=== PATIENT | female | born 1935 | race Caucasian/White ===

== ENCOUNTER 2016-08-30 02:17 | Inpatient (IN) | payer MEDICARE, BC ==
[2016-08-30] MEDS ORDERED: Sodium Chloride 0.9% 10 ML Syringe FLUSH PRN (02:40)
[2016-08-30] MEDS ORDERED: Ondansetron 4 MG/2 ML SDV IVPUSH ONE (02:41)
[2016-08-30] MEDS ORDERED: Sodium Chloride 0.9% 1,000 ML IV SCH (02:45)
--- NOTE | 2016-08-30 04:20 | EDM.PDOC ---
ED HISTORY OF PRESENT ILLNESS - General Chief Complaint: Respiratory Problem Stated Complaint: NAUSEA DIZZY SPELLS Time Seen by Provider: 08/30/16 02:36 Source of Information: Reports: Patient History Limitations: Reports: No limitations - History of Present Illness INITIAL COMMENTS - FREE TEXT/NARRATIVE: The patient presents with a cough, dizziness and nausea. This started yesterday after she was here with her . He was admitted with pneumonia and influenza. She does not feel like she has a fever. She is nauseated. She is lightheaded. She says her chest does hurt when she coughs. She has no shortenss of breath. She has no abdominal pain. Timing/Duration: Reports: Day(s): (Yesterday) Severity: moderate Location, General: Reports: chest Quality: Reports: Ache Improves with: Reports: None Worsens with: Reports: Other (Cough) Associated Symptoms (General): Reports: chest pain, cough, cough w sputum, loss of appetite, nausea/vomiting. Denies: fever/chills, shortness of breath - Related Data Allergies/ADRs: Allergies Allergy/AdvReac Type Severity Reaction Status Date / Time acetaminophen Allergy Other Verified 08/30/16 02:31 amoxicillin [Amoxicillin] Allergy Other Verified 08/30/16 02:31 ampicillin Allergy Cannot Verified 08/30/16 02:31 Remember aspirin Allergy Cannot Verified 08/30/16 02:31 Remember clarithromycin [From Biaxin] Allergy Cannot Verified 08/30/16 02:31 Remember clindamycin Allergy Cannot Verified 08/30/16 02:31 Remember glucosamine Allergy Anaphylactic Verified 08/30/16 02:31 Shock hydrocodone Allergy Cannot Verified 08/30/16 02:31 Remember ibuprofen Allergy Other Verified 08/30/16 02:31 olmesartan medoxomil Allergy Other Verified 08/30/16 02:31 [From Benicar] propoxyphene HCl Allergy Cannot Verified 08/30/16 02:31 [From Darvon] Remember sucralfate [From Carafate] Allergy Other Verified 08/30/16 02:31 tramadol Allergy Cannot Verified 08/30/16 02:31 Remember warfarin [Warfarin] Allergy Other Verified 08/30/16 02:31 Penicillins AdvReac Nausea and Verified 08/30/16 02:31 Vomiting Home Meds: Home Meds Acetaminophen [Tylenol] 325 mg PO QID PRN 04/09/14 [History] Fish Oil/[place]-3 Fatty Acids [Fish Oil 1,000 MG] 1,000 gm PO DAILY 04/09/14 [ History] L Acidophil/B Lactis/B Longum [Florajen3] 460 mg PO DAILY 04/09/14 [History] Losartan/Hydrochlorothiazide [Losartan-HCTZ 50-12.5 MG] 50 mg PO DAILY 04/09/14 [History] Omeprazole [Omeprazole] 20 mg PO BID 04/09/14 [History] Rivaroxaban [Xarelto] 20 mg PO DAILY 04/09/14 [History] Sodium Chloride [Rita-128] 1 drop EYEBOTH TID 04/09/14 [History] Tetrahydrozoline HCl 15 ml OP QID PRN 04/09/14 [History] Past Medical History HEENT History: Reports: Cataract Cardiovascular History: Reports: Afib, Angina, CAD, High cholesterol, Hypertension Gastrointestinal History: Reports: GERD Genitourinary History: Reports: Other (see below) Other Genitourinary History: Kidney tumor??? 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, Renal - Infectious Disease History Infectious Disease History: Reports: Chicken pox - Past Surgical History HEENT Surgical History: Reports: Eye surgery GI Surgical History: Reports: Appendectomy, Cholecystectomy, Colonoscopy Oncologic Surgical History: Reports: Biopsy of breast Social & Family History - Tobacco Use Smoking Status *Q: Never Smoker Second Hand Smoke Exposure: No - Caffeine Use Caffeine Use: Reports: None - Alcohol Use Days Per Week of Alcohol Use: 0 - Recreational Drug Use Recreational Drug Use: No ED ROS GENERAL - Review of Systems Review Of Systems: See Below Constitutional: Reports: no symptoms HEENT: Reports: No symptoms Respiratory: Reports: Cough, Sputum Cardiovascular: Reports: Chest pain Endocrine: Reports: no symptoms GI/Abdominal: Reports: No symptoms : Reports: no symptoms Musculoskeletal: Reports: no symptoms Skin: Reports: no symptoms ED EXAM, GENERAL - Physical Exam Exam: See Below Exam Limited By: No limitations General Appearance: alert, no apparent distress Ears: normal external exam Nose: normal inspection Head: atraumatic, normocephalic Neck: normal inspection Respiratory/Chest: no respiratory distress, lungs clear, normal breath sounds Cardiovascular: regular rate, rhythm, no edema, no murmur GI/Abdominal: soft, non tender, no organomegaly, no mass Back Exam: normal inspection Extremities: normal inspection EKG INTERPRETATION EKG Date: 08/30/16 Time: 02:25 Rhythm: a-fib Rate (beats/min): 79 [place]: normal QRS: normal ST-T: normal QT: normal Course - Vital Signs Last Recorded V/S: Last Vital Signs Temp 97.1 F 08/30/16 02:23 Pulse 84 08/30/16 02:23 Resp 18 08/30/16 02:23 BP 109/72 08/30/16 02:23 Pulse Ox 91 L 08/30/16 02:23 - Orders/Labs/Meds Orders: Active Orders 24 hr Category Date Time Status Cardiac Monitoring [RC] . DIRECTED Care 08/30/16 02:40 Active EKG 12 Lead [EKG Documentation Completion] [RC] STAT Care 08/30/16 02:29 Active Oxygen Therapy [RC] PRN Care 08/30/16 02:40 Active Peripheral IV Care [RC] . DIRECTED Care 08/30/16 02:41 Active Chest 2V [CR] Stat Exams 08/30/16 02:41 Taken UA W/MICROSCOPIC [URIN] Stat Lab 08/30/16 04:20 Results Sodium Chloride 0.9% [Normal Saline] 1,000 ml Med 08/30/16 02:45 Active IV ASDIRECTED Sodium Chloride 0.9% [Saline Flush] Med 08/30/16 02:40 Active 10 ml FLUSH ASDIRECTED PRN Peripheral IV Insertion Adult [OM.PC] Stat Oth 08/30/16 02:40 Ordered Medication Orders Sodium Chloride (Normal Saline) 1,000 mls @ 125 mls/hr IV ASDIRECTED LISA Last Admin: 08/30/16 02:46 Dose: 125 mls/hr Sodium Chloride (Saline Flush) 10 ml FLUSH ASDIRECTED PRN PRN Reason: Keep Vein Open Last Admin: 08/30/16 02:46 Dose: 10 ml Labs: Laboratory Tests 08/30/16 08/30/16 08/30/16 Range/Units 02:32 02:32 04:20 WBC 7.77 (3.98-10.04) K/mm3 RBC 4.43 (3.98-5.22) M/mm3 Hgb 13.6 (11.2-15.7) gm/L Hct 37.8 (34.1-44.9) % MCV 85.3 (79.4-94.8) fl MCH 30.7 (25.6-32.2) pg MCHC 36.0 H (32.2-35.5) g/dl RDW Std Deviation 37.9 (36.4-46.3) fL Plt Count 107 L (182-369) K/mm3 MPV 10.2 (9.4-12.3) fl Neut % (Auto) 85.6 H (34.0-71.1) % Lymph % (Auto) 8.9 L (19.3-51.7) % [place] % (Auto) 5.4 (4.7-12.5) % Eos % (Auto) 0 L (0.7-5.8) Baso % (Auto) 0.1 (0.1-1.2) % Neut # 6.65 H (1.56-6.13) K/mm3 Lymph # 0.69 L (1.18-3.74) K/mm3 [place] # 0.42 H (0.24-0.36) K/mm3 Eos # 0.00 L (0.04-0.36) K/mm3 Baso # 0.01 (0.01-0.08) K/mm3 Manual Slide Review Abnormal smear Sodium 128 L (136-145) mEq/L Potassium 3.2 L (3.5-5.1) mEq/L Chloride 92 L (98-107) mEq/L Carbon Dioxide 26 (21-32) mEq/L Anion Gap 13.2 (5-15) BUN 11 (7-18) mg/dL Creatinine 1.0 (0.55-1.02) mg/dL Est Cr Clr Drug Dosing 41.30 mL/min Estimated GFR (MDRD) 53 (>60) mL/min BUN/Creatinine Ratio 11.0 L (14-18) Glucose 131 H (83-115) mg/dL Calcium 9.0 (8.5-10.1) mg/dL Total Bilirubin 0.8 (0.2-1.0) mg/dL AST 52 H (15-37) U/L ALT 33 (14-59) U/L Alkaline Phosphatase 117 H (46-116) U/L Troponin I < 0.017 (0.00-0.056) ng/mL Total Protein 7.2 (6.4-8.2) g/dl Albumin 3.5 (3.4-5.0) g/dl Globulin 3.7 gm/dL Albumin/Globulin Ratio 1.0 (1-2) Urine Color Yellow (Yellow) Urine Appearance Clear (Clear) Urine pH 7.0 (5.0-8.0) Ur Specific [place] 1.015 (1.005-1.030) Urine Protein Negative (Negative) Urine Glucose (UA) Negative (Negative) Urine Ketones Negative (Negative) Urine Occult Blood Trace-lysed H (Negative) Urine Nitrite Negative (Negative) Urine Bilirubin Negative (Negative) Urine Urobilinogen 0.2 (0.2-1.0) Ur Leukocyte Esterase Negative (Negative) Meds: Medications Generic Name Dose Route Start Last Admin Trade Name Freq PRN Reason Stop Dose Admin Sodium Chloride 1,000 mls @ 125 mls/hr 08/30/16 02:45 08/30/16 02:46 Normal Saline IV 125 mls/hr ASDIRECTED LISA Administration Sodium Chloride 10 ml 08/30/16 02:40 08/30/16 02:46 Saline Flush FLUSH 10 ml ASDIRECTED PRN Administration Keep Vein Open Discontinued Medications Generic Name Dose Route Start Last Admin Trade Name Freq PRN Reason Stop Dose Admin Ondansetron HCl 4 mg 08/30/16 02:41 08/30/16 02:46 Zofran IVPUSH 08/30/16 02:42 4 mg ONETIME ONE Administration - Re-Assessments/Exams Free Text/Narrative Re-Assessment/Exam: 08/30/16 04:21 I ordered an IV NS at 125ml/hr, zofran 4mg IV, EKG, CXR, labs and a UA. Her EKG shows a NSR with no acute changes. Her CXR shows no infiltrated. Her influenza was negative. Her CBC looks good. Her Na is low at 128 and her potassium is low at 3.1. Her troponin is negative. I am waiting for a UA. 08/30/16 04:42 Her UA shows no UTI. I am concerned she has an early pneumonia and influenza that we are not picking up. I feel she needs to be admitted. Her oxygen saturations dropped here in the ER and she needed some oxygen. I will give her some tamiflu and some levaquin. I will change her fluids to NS with 20meq of KCL. Departure - Departure Time of Disposition: 04:45 Disposition: Admitted As Inpatient 65 Condition: good Clinical Impression: Influenza A, Hypokalemia, Hyponatremia, Nausea Pneumonia Qualifiers: Pneumonia type: due to unspecified organism Laterality: unspecified laterality Lung location: unspecified part of lung Qualified Code(s): J18.9 - Pneumonia, unspecified organism Forms: ED Department Discharge - My Orders Last 24 Hours: My Active Orders 08/30/16 02:29 EKG 12 Lead [EKG Documentation Completion] [RC] STAT 08/30/16 02:40 Cardiac Monitoring [RC] . DIRECTED Oxygen Therapy [RC] PRN Sodium Chloride 0.9% [Saline Flush] 10 ml FLUSH ASDIRECTED PRN Peripheral IV Insertion Adult [OM.PC] Stat 08/30/16 02:41 Peripheral IV Care [RC] . DIRECTED Chest 2V [CR] Stat 08/30/16 02:45 Sodium Chloride 0.9% [Normal Saline] 1,000 ml IV ASDIRECTED 08/30/16 04:20 UA W/MICROSCOPIC [URIN] Stat - Assessment/Plan Last 24 Hours: My Active Orders 08/30/16 02:29 EKG 12 Lead [EKG Documentation Completion] [RC] STAT 08/30/16 02:40 Cardiac Monitoring [RC] . DIRECTED Oxygen Therapy [RC] PRN Sodium Chloride 0.9% [Saline Flush] 10 ml FLUSH ASDIRECTED PRN Peripheral IV Insertion Adult [OM.PC] Stat 08/30/16 02:41 Peripheral IV Care [RC] . DIRECTED Chest 2V [CR] Stat 08/30/16 02:45 Sodium Chloride 0.9% [Normal Saline] 1,000 ml IV ASDIRECTED 08/30/16 04:20 UA W/MICROSCOPIC [URIN] Stat
[2016-08-30] MEDS ORDERED: Levofloxacin/Dextrose 5%-Water 750 MG in Premix Bag 1 BAG IV ONE (04:44)
[2016-08-30] MEDS ORDERED: Oseltamivir 75 MG Cap PO ONE (04:44)
[2016-08-30] MEDS ORDERED: NS + KCl 20mEq/L 1,000 ML IV SCH (04:45)
[2016-08-30] MEDS ORDERED: Ondansetron 4 MG/2 ML SDV IVPUSH PRN (07:12)
[2016-08-30] MEDS ORDERED: Polyethylene Glycol 3350 Powder 17 GM Packet PO PRN (08:22)
[2016-08-30] MEDS ORDERED: Docusate Sodium 100 MG Cap PO PRN (08:22)
[2016-08-30] MEDS ORDERED: Albuterol 0.083% 2.5 MG/3 ML Neb Soln NEB PRN (08:22)
[2016-08-30] MEDS ORDERED: Ondansetron 4 MG Tab.DIS PO PRN (08:22)
[2016-08-30] MEDS ORDERED: Magnesium Hydroxide 400 MG/5 ML Susp 30 ML Cup PO PRN (08:22)
[2016-08-30] MEDS ORDERED: ALPRAZolam 0.25 MG Tab PO PRN (08:29)
[2016-08-30] MEDS ORDERED: Hypromellose 0.5% Ophth Soln 15 ML Bottle EYEBOTH PRN (08:43)
[2016-08-30] MEDS ORDERED: Diphtheria,Pertussis(Acell),Tetanus Vaccine 0.5 ML SDV inactive IM ONE (09:07)
[2016-08-30] MEDS: Losartan 25 MG Tab PO SCH (09:35)
[2016-08-30] MEDS: Rivaroxaban 10 MG Tab PO SCH (09:36)
[2016-08-30] MEDS: Acetaminophen 325 MG Tab PO PRN (09:36)
[2016-08-30] MEDS: Pantoprazole 40 MG Tab.CR PO SCH ×2 (09:37→16:34)
[2016-08-30] MEDS: Saccharomyces Boulardii (Probiotic) 250 MG Cap PO SCH (09:37)
[2016-08-30] MEDS: Hydrochlorothiazide 12.5 MG Cap PO SCH (09:38)
[2016-08-30] MEDS: Sodium Chloride 2% Ophth Soln 15 ML Bottle EYEBOTH SCH ×3 (09:48→20:00)
--- NOTE | 2016-08-30 09:56 | CR ---
Chest: Two views of the chest were obtained. Comparison: No previous chest x-ray. Heart size is normal. Mild tortuosity of the thoracic aorta is seen. No acute appearing infiltrates are seen. Bony structures are osteopenic. Surgical clips are seen within the right axillary region. Impression: 1. Incidental findings. Nothing acute is identified on two-view chest x-ray. Diagnostic code #2
[2016-08-30] MEDS ORDERED: Famotidine 20 MG/2 ML SDV IVPUSH ONE (11:30)
[2016-08-30] MEDS ORDERED: Potassium Chloride 20 MEQ Tab.ER PO ONE (11:30)
[2016-08-30] MEDS ORDERED: Magnesium Sulfate/Water 2 GM in Premix Bag 1 BAG IV ONE (11:30)
--- NOTE | 2016-08-30 12:23 | PCM.HP ---
H&P History of Present Illness - General Date of Service: 08/30/16 Admit Problem/Dx: Admission Diagnosis/Problem Admission Diagnosis/Problem Pneumonia Source of Information: Patient, Other (ED notes) History Limitations: Reports: No limitations - History of Present Illness Initial Comments - Free Text/Narative: Hawa is a pleasant 80yo female admitted through the ED early this morning with clinical pneumonia, influenza exposure, SOB with hypoxia, fever, cough, generalized weakness and nausea. She has PMH significant for a.fib on xarelto, HTN, HLD, GERD, PUD, chronic LBP, anxiety, hx breast cancer, ? hx of renal mass/ tumor. She has had cough x 3-5 days, worse the past 1-2 days. She woke around 11pm with chills, sweats and SOB. She was weak and felt she may faint. She called her daughter for help who came to her home and drove her to the ED for evaluation. Patient's is currently ill with influenza B and pneumonia. 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 She uses a cane for assistance with ambulation. She is not on home oxygen therapy. ED evaluation found patient to be hypoxic, oxygen was applied. CXR is unremarkable. EKG done showing afib with rate of 79bpm. Lab evaluation as follows: WBC 7.7, Hgb 13.6, hct 37.8, Plt 107. CMP with Na+ low at 128, K+ 3.2, BUN 11, Creat 1.0, glucose 131, AST 52, ALT 33, alk phos 117. Troponin was < 0.017. UA with only trace blood. Hospitalist service is consulted for admission for clinical pneumonia, hyponatremia, hypokalemia, generalized weakness. Patient is Full Code. Chest Pain Score (Numeric/FACES): 8 - Related Data Allergies/Adverse Reactions: Allergies Allergy/AdvReac Type Severity Reaction Status Date / Time ampicillin Allergy Cannot Verified 08/30/16 02:31 Remember clarithromycin [From Biaxin] Allergy Cannot Verified 08/30/16 02:31 Remember glucosamine Allergy Anaphylactic Verified 08/30/16 02:31 Shock hydrocodone Allergy Cannot Verified 08/30/16 02:31 Remember propoxyphene HCl Allergy Cannot Verified 08/30/16 02:31 [From Darvon] Remember acetaminophen AdvReac Other Verified 08/30/16 11:33 amoxicillin [Amoxicillin] AdvReac Other Verified 08/30/16 11:33 aspirin AdvReac Cannot Verified 08/30/16 11:33 Remember clindamycin AdvReac Cannot Verified 08/30/16 11:33 Remember ibuprofen AdvReac Other Verified 08/30/16 11:33 olmesartan medoxomil AdvReac Other Verified 08/30/16 11:33 [From Benicar] Penicillins AdvReac Nausea and Verified 08/30/16 02:31 Vomiting sucralfate [From Carafate] AdvReac Other Verified 08/30/16 11:33 tramadol AdvReac Cannot Verified 08/30/16 11:33 Remember warfarin [Warfarin] AdvReac Other Verified 08/30/16 11:33 Home Medications: Home Meds Acetaminophen [Tylenol] 325 mg PO QID PRN 04/09/14 [History] Fish Oil/[place]-3 Fatty Acids [Fish Oil 1,000 MG] 1,000 gm PO DAILY 04/09/14 [ History] L Acidophil/B Lactis/B Longum [Florajen3] 460 mg PO DAILY 04/09/14 [History] Losartan/Hydrochlorothiazide [Losartan-HCTZ 50-12.5 MG] 50 mg PO DAILY 04/09/14 [History] Omeprazole [Omeprazole] 20 mg PO BID 04/09/14 [History] Rivaroxaban [Xarelto] 20 mg PO DAILY 04/09/14 [History] Sodium Chloride [Rita-128] 1 drop EYEBOTH TID 04/09/14 [History] Tetrahydrozoline HCl 15 ml OP QID PRN 04/09/14 [History] ALPRAZolam [Alprazolam] 0.25 mg PO BEDTIME PRN 08/30/16 [History] Past Medical History HEENT History: Reports: Cataract Cardiovascular History: Reports: Afib, Angina, CAD, High cholesterol, Hypertension Gastrointestinal History: Reports: GERD, PUD Genitourinary History: Reports: Other (see below) Other Genitourinary History: Kidney tumor??? CT scan : 2 Para: 2 Other OB/BYN History: Hysterectomy, 2 vaginal births Musculoskeletal History: Reports: Back pain, chronic Psychiatric History: Reports: Anxiety Oncologic (Cancer) History: Reports: Breast, Renal - Infectious Disease History Infectious Disease History: Reports: Chicken pox - Past Surgical History HEENT Surgical History: Reports: Eye surgery Cardiovascular Surgical History: Reports: None GI Surgical History: Reports: Appendectomy, Cholecystectomy, Colonoscopy Female Surgical History: Reports: None Musculoskeletal Surgical History: Reports: None Oncologic Surgical History: Reports: Biopsy of breast Social & Family History - Family History Family Medical History: Noncontributory - Tobacco Use Smoking Status *Q: Never Smoker Second Hand Smoke Exposure: No - Caffeine Use Caffeine Use: Reports: None - Alcohol Use Days Per Week of Alcohol Use: 0 - Recreational Drug Use Recreational Drug Use: No H&P Review of Systems - Review of Systems: Review Of Systems: See Below General: Reports: fever (subjective), chills, malaise, weakness, fatigue, night sweats, diaphoresis, decreased appetite HEENT: Reports: headaches, rhinitis. Denies: sore throat Pulmonary: Reports: Shortness of Breath, Cough. Denies: Sputum Cardiovascular: Reports: lightheadedness. Denies: chest pain, palpitations, dyspnea on exertion Gastrointestinal: Reports: Abdominal pain, Decreased appetite, Nausea. Denies: Constipation, Diarrhea, Vomiting Genitourinary: Reports: no symptoms Musculoskeletal: Reports: no symptoms Skin: Reports: no symptoms Psychiatric: Reports: no symptoms Neurological: Reports: No Symptoms Exam - Exam Exam: See Below - Vital Signs Vital Signs: Last Vital Signs Temp 99.0 F 08/30/16 05:30 Pulse 78 08/30/16 05:30 Resp 24 H 08/30/16 05:30 BP 111/89 08/30/16 09:35 Pulse Ox 91 L 08/30/16 09:38 Weight: 183 lb 11.2 oz - Exam Quality Assessment: supplemental oxygen, DVT prophylaxis General: alert, oriented, cooperative HEENT: Conjunctiva clear, Hearing intact, Mucosa moist & pink, Pupils equal, PERRLA Neck: supple Lungs: Normal respiratory effort, Decreased breath sounds, Rhonchi (rt side >lt) , Wheezing (bases on exp) Cardiovascular: irregular rhythm Abdomen: normal bowel sounds, soft. No: guarding, rigidity, rebound, tenderness (Female) Exam: Deferred Rectal (Female) Exam: Deferred Back Exam: normal inspection Extremities: normal inspection. No: clubbing, cyanosis, calf tenderness, edema Peripheral Pulses: 1+: dorsalis pedis (L), dorsalis pedis (R) Skin: warm, dry, intact Neurological: cranial nerves intact, strength equal bilateral, normal speech, normal tone Neuro Extensive - Mental Status: alert, oriented x3, normal mood/affect, normal cognition, memory intact Neuro Extensive - Motor, Sensory, Reflexes: CN II-XII intact Psychiatric: alert, normal affect, normal mood - Patient Data Lab Results last 24 hrs: Laboratory Results - last 24 hr 08/30/16 08/30/16 Range/Units 09:06 09:06 WBC 9.08 (3.98-10.04) K/mm3 RBC 4.17 (3.98-5.22) M/mm3 Hgb 12.9 (11.2-15.7) gm/L Hct 35.9 (34.1-44.9) % MCV 86.1 (79.4-94.8) fl MCH 30.9 (25.6-32.2) pg MCHC 35.9 H (32.2-35.5) g/dl RDW Std Deviation 38.4 (36.4-46.3) fL Plt Count 92 L (182-369) K/mm3 MPV 9.7 (9.4-12.3) fl Neut % (Auto) 86.5 H (34.0-71.1) % Lymph % (Auto) 7.2 L (19.3-51.7) % [place] % (Auto) 5.9 (4.7-12.5) % Eos % (Auto) 0 L (0.7-5.8) Baso % (Auto) 0.1 (0.1-1.2) % Neut # 7.85 H (1.56-6.13) K/mm3 Lymph # 0.65 L (1.18-3.74) K/mm3 [place] # 0.54 H (0.24-0.36) K/mm3 Eos # 0.00 L (0.04-0.36) K/mm3 Baso # 0.01 (0.01-0.08) K/mm3 Manual Slide Review Abnormal smear Sodium 129 L (136-145) mEq/L Potassium 3.4 L (3.5-5.1) mEq/L Chloride 95 L (98-107) mEq/L Carbon Dioxide 24 (21-32) mEq/L Anion Gap 13.4 (5-15) BUN 10 (7-18) mg/dL Creatinine 0.9 (0.55-1.02) mg/dL Est Cr Clr Drug Dosing 45.89 mL/min Estimated GFR (MDRD) > 60 (>60) mL/min BUN/Creatinine Ratio 11.1 L (14-18) Glucose 118 H (83-115) mg/dL Calcium 8.3 L (8.5-10.1) mg/dL Magnesium 1.3 L (1.8-2.4) mg/dl C-Reactive Protein 6.1 H* (<1.0) mg/dL Result Diagrams: 08/30/16 09:06 08/30/16 09:06 EKG INTERPRETATION EKG Date: 08/30/16 Rhythm: a-fib Rate (beats/min): 79 Comparison: NA - no prior EKG (EKG done in ER) *Q Meaningful Use (ADM) - VTE *Q VTE Criteria *Q: - Stroke *Q Stroke Criteria *Q: - AMI *Q AMI Criteria *Q: - Problem List (1) Pneumonia SNOMED Code(s): 799355734 ICD Code: J18.9 - PNEUMONIA, UNSPECIFIED ORGANISM Status: Acute Priority : High Current Visit: Yes Qualifiers: Pneumonia type: due to unspecified organism Laterality: unspecified laterality Lung location: unspecified part of lung Qualified Code(s): J18.9 - Pneumonia, unspecified organism (2) Hypokalemia SNOMED Code(s): 03731330 ICD Code: E87.6 - HYPOKALEMIA Status: Acute Priority: High Current Visit: Yes (3) Hyponatremia SNOMED Code(s): 47488411 ICD Code: E87.1 - HYPO-OSMOLALITY AND HYPONATREMIA Status: Acute Priority : High Current Visit: Yes (4) Nausea SNOMED Code(s): 383841827 ICD Code: R11.0 - NAUSEA Status: Acute Priority: High Current Visit: Yes (5) Generalized weakness SNOMED Code(s): 24125600 ICD Code: R53.1 - WEAKNESS Status: Acute Priority: High Current Visit: Yes Problem List Initiated/Reviewed/Updated: Yes Orders Last 24hrs: Active Orders 24 hr Category Date Time Status Admission Status [Patient Status] [ADT] Routine ADT 08/30/16 06:01 Active Patient Status [ADT] Routine ADT 08/30/16 08:22 Active Activity as Tolerated [RC] .Routine Care 08/30/16 07:02 Inactive Ambulate [RC] QSHIFT Care 08/30/16 08:22 Active Antiembolic Devices [RC] PER UNIT ROUTINE Care 08/30/16 08:26 Active Bedrest [RC] ASDIRECTED Care 08/30/16 07:03 Active Height and Weight [RC] DAILY Care 08/30/16 08:22 Active Intake and Output [RC] QSHIFT Care 08/30/16 08:24 Active Oxygen Therapy [RC] PRN Care 08/30/16 08:22 Active RT Aerosol Therapy [RC] .PRN Care 08/30/16 08:26 Active Up With Assistance [RC] ASDIRECTED Care 08/30/16 08:22 Active VTE/DVT Education [RC] PER UNIT ROUTINE Care 08/30/16 08:22 Active Vaccines to be Administered [RC] PER UNIT ROUTINE Care 08/30/16 09:07 Active Vital Signs [RC] Q4HR Care 08/30/16 08:22 Active Consult to Case Management [CONS] Routine Cons 08/30/16 08:27 Active Consult to Pulp Press Tender [CONS] Routine Cons 08/30/16 08:27 Active OT Evaluation and Treatment [CONS] Routine Cons 08/30/16 08:27 Active PT Evaluation and Treatment [CONS] Routine Cons 08/30/16 08:27 Active Respiratory Care Assess and Treatment [CONS] Routine Cons 08/30/16 08:27 Active Regular Diet [DIET] Diet 08/30/16 Breakfast Active BASIC METABOLIC PANEL,BMP [CHEM] DAILY Lab 08/31/16 08:30 Ordered BASIC METABOLIC PANEL,BMP [CHEM] DAILY Lab 09/01/16 08:30 Ordered BASIC METABOLIC PANEL,BMP [CHEM] DAILY Lab 09/02/16 08:30 Ordered BASIC METABOLIC PANEL,BMP [CHEM] DAILY Lab 09/03/16 08:30 Ordered BASIC METABOLIC PANEL,BMP [CHEM] DAILY Lab 09/04/16 08:30 Ordered BASIC METABOLIC PANEL,BMP [CHEM] DAILY Lab 09/05/16 08:30 Ordered C-REACTIVE PROTEIN [CHEM] DAILY Lab 08/31/16 08:30 Ordered C-REACTIVE PROTEIN [CHEM] DAILY Lab 09/01/16 08:30 Ordered C-REACTIVE PROTEIN [CHEM] DAILY Lab 09/02/16 08:30 Ordered C-REACTIVE PROTEIN [CHEM] DAILY Lab 09/03/16 08:30 Ordered C-REACTIVE PROTEIN [CHEM] DAILY Lab 09/04/16 08:30 Ordered C-REACTIVE PROTEIN [CHEM] DAILY Lab 09/05/16 08:30 Ordered CBC WITH AUTO DIFF [HEME] DAILY Lab 08/31/16 08:30 Ordered CBC WITH AUTO DIFF [HEME] DAILY Lab 09/01/16 08:30 Ordered CBC WITH AUTO DIFF [HEME] DAILY Lab 09/02/16 08:30 Ordered CBC WITH AUTO DIFF [HEME] DAILY Lab 09/03/16 08:30 Ordered CBC WITH AUTO DIFF [HEME] DAILY Lab 09/04/16 08:30 Ordered CBC WITH AUTO DIFF [HEME] DAILY Lab 09/05/16 08:30 Ordered INFLUENZA A,B, H1N1 BY PCR [MREF] Stat Lab 08/30/16 10:56 Uncollected MAGNESIUM [CHEM] DAILY Lab 08/31/16 08:30 Ordered MAGNESIUM [CHEM] DAILY Lab 09/01/16 08:30 Ordered MAGNESIUM [CHEM] DAILY Lab 09/02/16 08:30 Ordered MAGNESIUM [CHEM] DAILY Lab 09/03/16 08:30 Ordered ALPRAZolam [Xanax] Med 08/30/16 08:29 Active 0.25 mg PO BEDTIME PRN Acetaminophen [Tylenol] Med 08/30/16 08:29 Active 325 mg PO QID PRN Albuterol [Proventil Neb Soln] Med 08/30/16 08:22 Active 2.5 mg NEB Q2H PRN Docusate Sodium [Colace] Med 08/30/16 08:22 Active 100 mg PO BID PRN Hydrochlorothiazide Med 08/30/16 09:00 Active 12.5 mg PO DAILY Hypromellose [Isopto Tears 0.5% Ophth Soln] Med 08/30/16 08:43 Active 0 ml EYEBOTH QID PRN Levofloxacin/Dextrose 5%-Water [Levaquin in D5W 750 MG/ Med 08/31/16 05:00 Active 150 ML] 750 mg Premix Bag 1 bag IV Q48H Losartan [Cozaar] Med 08/30/16 09:00 Active 50 mg PO DAILY Magnesium Hydroxide [Milk of Magnesia] Med 08/30/16 08:22 Active 30 ml PO Q12H PRN Magnesium Rep Pharmacy to Dose [Pharmacy to Dose - Med 08/30/16 11:00 Active Magnesium Replacement] 0 dose .XX ASDIRECTED PRN Magnesium Sulfate/Water [Magnesium Sulfate 2 GM in Med 08/30/16 11:30 Active Water 50 ML] 2 gm Premix Bag 1 bag IV ONETIME NS + KCl 20mEq/L [Normal Saline with 20 mEq KCl] 1,000 Med 08/30/16 07:15 Active ml IV ASDIRECTED Ondansetron [Zofran] Med 08/30/16 07:12 Active 4 mg IVPUSH Q6H PRN Oseltamivir [Tamiflu] Med 08/31/16 09:00 Active 30 mg PO DAILY Pantoprazole [Protonix] Med 08/30/16 08:45 Active 40 mg PO BIDAC Polyethylene Glycol 3350 [MiraLAX] Med 08/30/16 08:22 Active 17 gm PO DAILY PRN Potassium Rep Pharmacy to Dose [Pharmacy to Dose - Med 08/30/16 11:00 Active Potassium Replacement] 0 dose .XX ASDIRECTED PRN Rivaroxaban [Xarelto] Med 08/30/16 09:00 Active 20 mg PO DAILY Saccharomyces Boulardii [Florastor] Med 08/30/16 09:00 Active 250 mg PO DAILY Sodium Chloride 2% [Rita 128 2% Ophth Soln] Med 08/30/16 09:00 Active 0 ml EYEBOTH TID Sequential Compression Device [OM.PC] Per Unit Routine Oth 08/30/16 08:24 Ordered Code Status [Resuscitation Status] Routine Resus Stat 08/30/16 07:01 Ordered Medication Orders Acetaminophen (Tylenol) 325 mg PO QID PRN PRN Reason: Pain Last Admin: 08/30/16 09:36 Dose: 325 mg Albuterol (Proventil Neb Soln) 2.5 mg NEB Q2H PRN PRN Reason: Shortness Of Breath/wheezing Alprazolam (Xanax) 0.25 mg PO BEDTIME PRN PRN Reason: Sleep Artificial Tears (Isopto Tears 0.5% Ophth Soln) 0 ml EYEBOTH QID PRN PRN Reason: Dry Eyes Docusate Sodium (Colace) 100 mg PO BID PRN PRN Reason: Constipation Hydrochlorothiazide (Hydrochlorothiazide) 12.5 mg PO DAILY [facility] Last Admin: 08/30/16 09:38 Dose: 12.5 mg Levofloxacin/Dextrose 750 mg/ (Premix) 150 mls @ 100 mls/hr IV Q48H [facility] Potassium Chloride/Sodium Chloride (Normal Saline With 20 Meq Kcl) 1,000 mls @ 125 mls/hr IV ASDIRECTED [facility] Magnesium Sulfate 2 gm/ Premix 50 mls @ 25 mls/hr IV ONETIME ONE Stop: 08/30/16 13:29 Losartan Potassium (Cozaar) 50 mg PO DAILY [facility] Last Admin: 08/30/16 09:35 Dose: 50 mg Magnesium Hydroxide (Milk Of Magnesia) 30 ml PO Q12H PRN PRN Reason: Constipation Magnesium Sulfate (Pharmacy To Dose - Magnesium Replacement) 0 dose .XX ASDIRECTED PRN PRN Reason: RX TO MONITOR MAG LEVELS Ondansetron HCl (Zofran) 4 mg IVPUSH Q6H PRN PRN Reason: Nausea Oseltamivir Phosphate (Tamiflu) 30 mg PO DAILY [facility] Pantoprazole Sodium (Protonix) 40 mg PO BIDAC [facility] Last Admin: 08/30/16 09:37 Dose: 40 mg Polyethylene Glycol (Miralax) 17 gm PO DAILY PRN PRN Reason: Constipation Potassium Chloride (Pharmacy To Dose - Potassium Replacement) 0 dose .XX ASDIRECTED PRN PRN Reason: RX TO MONITOR K LEVELS Rivaroxaban (Xarelto) 20 mg PO DAILY [facility] Last Admin: 08/30/16 09:36 Dose: 20 mg Saccharomyces Boulardii (Florastor) 250 mg PO DAILY [facility] Last Admin: 08/30/16 09:37 Dose: 250 mg Sodium Chloride (Saline Flush) 10 ml FLUSH ASDIRECTED PRN PRN Reason: Keep Vein Open Last Admin: 08/30/16 02:46 Dose: 10 ml Sodium Chloride (Rita 128 2% Ophth Soln) 0 ml EYEBOTH TID [facility] Last Admin: 08/30/16 09:48 Dose: Not Given Assessment/Plan Comment:: A/P: SOB with hypoxia and fever: clinical pneumonia -Supplemental oxygen to keep sats >90% -Antipyretics PRN -RT: albuterol nebs, IS, Acapella, C&DB-- aggressive pulmonary toilet -Influenza exposure- negative rapid flu screen; PCR ordered; treat with prophylactic tamiflu and resp precautions until PCR returned -Repeat CXR tomorrow am to follow Hyponatremia -In part related to volume depletion; hydration and will start thermotabs BID -Follow am labs daily Hypokalemia -As above; volume depletion -Replace with IV and PO -Pharmacy to dose replacement -Follow am labs daily -Check mag level daily Nausea -Hx of GERD and PUD -Zofran PRN -Protonix BID -IV pepcid x 1 -Allergic to carafate suspension -Close monitoring, monitor intake and meals -Hx of anxiety as well; she voices concerns to me that her is not well and is a lot for her to care for at home. This is likely contributing to nausea. PPI as above Anxiety -Cont home meds- xanax PRN at bedtime -Cont to monitor Generalized weakness -2/2 acute illness -Will check TFT and vit D level -PT/OT Chronic: Hx of HTN- cont home meds Afib- cont xarelto GERD/hx PUD- PPI as above Other: DVT prophylax with SCD's and ambulation, xarelto GI prophylax as above CM/SW consult for dc planning Patient is full code
[2016-08-30] MEDS: Albuterol/Ipratropium 3.0-0.5 MG/3 ML Neb Soln NEB SCH ×2 (13:38→20:59)
[2016-08-30] MEDS: NS + KCl 20mEq/L 1,000 ML IV SCH ×2 (13:48→22:51)
[2016-08-30] MEDS: guaiFENesin 600 MG Tab.ER PO SCH ×2 (13:48→20:00)
[2016-08-30] MEDS: Potassium Chloride/Sodium Chloride Tab PO SCH ×2 (13:48→20:00)
[2016-08-30] MEDS ORDERED: Albuterol/Ipratropium 3.0-0.5 MG/3 ML Neb Soln NEB SCH (15:00)
--- NOTE | 2016-08-31 02:29 | PCM.PN ---
- General Info Date of Service: 08/31/16 Admission Dx/Problem (Free Text): Admission Diagnosis/Problem Admission Diagnosis/Problem Pneumonia Functional Status: Reports: pain controlled, tolerating diet, ambulating, urinating. Denies: new symptoms - Review of Systems General: Denies: Fever, Weakness, Fatigue, Malaise, Chills HEENT: Reports: other. Denies: dysphasia (horse sounding voice), sore throat Pulmonary: Denies: shortness of breath Cardiovascular: Denies: Chest Pain Gastrointestinal: Denies: Abdominal pain, Nausea, Vomiting Genitourinary: Reports: no symptoms Musculoskeletal: Reports: no symptoms Skin: Denies: cyanosis, rash Neurological: Denies: Dizziness, Difficulty Walking, Gait Disturbance Psychiatric: Denies: depression, anxiety, hallucinations Systems Review Comment:: No overnight or acute issues. She fells better. Her voice sounds horse. She is afebrile w/o leukocytosis. - Patient Data Vitals - most recent: Last Vital Signs Temp 36.5 C 08/31/16 00:14 Pulse 65 08/31/16 00:14 Resp 20 08/31/16 00:14 BP 113/61 08/31/16 00:14 Pulse Ox 95 08/31/16 00:14 Weight - most recent: 83.325 kg I&O - last 24 hours: Intake & Output 08/30/16 08/30/16 08/31/16 14:59 22:59 06:59 Intake Total 2125 Balance 2125 Lab Results last 24 hrs: Laboratory Results - last 24 hr 08/30/16 08/30/16 08/30/16 Range/Units 09:06 09:06 09:06 WBC 9.08 (3.98-10.04) K/mm3 RBC 4.17 (3.98-5.22) M/mm3 Hgb 12.9 (11.2-15.7) gm/L Hct 35.9 (34.1-44.9) % MCV 86.1 (79.4-94.8) fl MCH 30.9 (25.6-32.2) pg MCHC 35.9 H (32.2-35.5) g/dl RDW Std Deviation 38.4 (36.4-46.3) fL Plt Count 92 L (182-369) K/mm3 MPV 9.7 (9.4-12.3) fl Neut % (Auto) 86.5 H (34.0-71.1) % Lymph % (Auto) 7.2 L (19.3-51.7) % [place] % (Auto) 5.9 (4.7-12.5) % Eos % (Auto) 0 L (0.7-5.8) Baso % (Auto) 0.1 (0.1-1.2) % Neut # 7.85 H (1.56-6.13) K/mm3 Lymph # 0.65 L (1.18-3.74) K/mm3 [place] # 0.54 H (0.24-0.36) K/mm3 Eos # 0.00 L (0.04-0.36) K/mm3 Baso # 0.01 (0.01-0.08) K/mm3 Manual Slide Review Abnormal smear Sodium 129 L (136-145) mEq/L Potassium 3.4 L (3.5-5.1) mEq/L Chloride 95 L (98-107) mEq/L Carbon Dioxide 24 (21-32) mEq/L Anion Gap 13.4 (5-15) BUN 10 (7-18) mg/dL Creatinine 0.9 (0.55-1.02) mg/dL Est Cr Clr Drug Dosing 45.89 mL/min Estimated GFR (MDRD) > 60 (>60) mL/min BUN/Creatinine Ratio 11.1 L (14-18) Glucose 118 H (83-115) mg/dL Calcium 8.3 L (8.5-10.1) mg/dL Magnesium 1.3 L (1.8-2.4) mg/dl C-Reactive Protein 6.1 H* (<1.0) mg/dL TSH 3rd Generation 1.643 (0.358-3.74) uIU/mL Med Orders - Current: Current Medications Acetaminophen (Tylenol) 325 mg PO QID PRN PRN Reason: Pain Last Admin: 08/30/16 09:36 Dose: 325 mg Albuterol (Proventil Neb Soln) 2.5 mg NEB Q2H PRN PRN Reason: Shortness Of Breath/wheezing Albuterol/Ipratropium (Duoneb 3.0-0.5 Mg/3 Ml) 3 ml NEB TIDRT LISA Last Admin: 08/30/16 20:59 Dose: 3 ml Alprazolam (Xanax) 0.25 mg PO BEDTIME PRN PRN Reason: Sleep Artificial Tears (Isopto Tears 0.5% Ophth Soln) 0 ml EYEBOTH QID PRN PRN Reason: Dry Eyes Docusate Sodium (Colace) 100 mg PO BID PRN PRN Reason: Constipation Guaifenesin (Mucinex) 600 mg PO BID [facility] Last Admin: 08/30/16 20:00 Dose: 600 mg Hydrochlorothiazide (Hydrochlorothiazide) 12.5 mg PO DAILY [facility] Last Admin: 08/30/16 09:38 Dose: 12.5 mg Levofloxacin/Dextrose 750 mg/ (Premix) 150 mls @ 100 mls/hr IV Q48H [facility] Potassium Chloride/Sodium Chloride (Normal Saline With 20 Meq Kcl) 1,000 mls @ 125 mls/hr IV ASDIRECTED [facility] Last Admin: 08/30/16 22:51 Dose: 125 mls/hr Losartan Potassium (Cozaar) 50 mg PO DAILY [facility] Last Admin: 08/30/16 09:35 Dose: 50 mg Magnesium Hydroxide (Milk Of Magnesia) 30 ml PO Q12H PRN PRN Reason: Constipation Magnesium Sulfate (Pharmacy To Dose - Magnesium Replacement) 0 dose .XX ASDIRECTED PRN PRN Reason: RX TO MONITOR MAG LEVELS Ondansetron HCl (Zofran) 4 mg IVPUSH Q6H PRN PRN Reason: Nausea Oral Electrolytes (Thermotabs) 1 each PO BID [facility] Last Admin: 08/30/16 20:00 Dose: 1 each Oseltamivir Phosphate (Tamiflu) 30 mg PO DAILY [facility] Pantoprazole Sodium (Protonix) 40 mg PO BIDAC [facility] Last Admin: 08/30/16 16:34 Dose: 40 mg Polyethylene Glycol (Miralax) 17 gm PO DAILY PRN PRN Reason: Constipation Potassium Chloride (Pharmacy To Dose - Potassium Replacement) 0 dose .XX ASDIRECTED PRN PRN Reason: RX TO MONITOR K LEVELS Rivaroxaban (Xarelto) 20 mg PO DAILY [facility] Last Admin: 08/30/16 09:36 Dose: 20 mg Saccharomyces Boulardii (Florastor) 250 mg PO DAILY [facility] Last Admin: 08/30/16 09:37 Dose: 250 mg Sodium Chloride (Saline Flush) 10 ml FLUSH ASDIRECTED PRN PRN Reason: Keep Vein Open Last Admin: 08/30/16 02:46 Dose: 10 ml Sodium Chloride (Rita 128 2% Ophth Soln) 0 ml EYEBOTH TID [facility] Last Admin: 08/30/16 20:00 Dose: 1 drop Discontinued Medications Albuterol/Ipratropium (Duoneb 3.0-0.5 Mg/3 Ml) 3 ml NEB TID [facility] Diphtheria/Tetanus/Acell Pertussis (Boostrix) 0.5 ml IM .ONCE ONE Stop: 08/30/16 09:08 Famotidine (Pepcid) 20 mg IVPUSH ONETIME ONE Stop: 08/30/16 11:31 Last Admin: 08/30/16 12:55 Dose: 20 mg Sodium Chloride (Normal Saline) 1,000 mls @ 125 mls/hr IV ASDIRECTED [facility] Last Admin: 08/30/16 02:46 Dose: 125 mls/hr Levofloxacin/Dextrose 750 mg/ (Premix) 150 mls @ 100 mls/hr IV ONETIME ONE Stop: 08/30/16 06:13 Last Admin: 08/30/16 04:59 Dose: 100 mls/hr Potassium Chloride/Sodium Chloride (Normal Saline With 20 Meq Kcl) 1,000 mls @ 125 mls/hr IV ASDIRECTED [facility] Last Admin: 08/30/16 04:58 Dose: 125 mls/hr Magnesium Sulfate 2 gm/ Premix 50 mls @ 25 mls/hr IV ONETIME ONE Stop: 08/30/16 13:29 Last Admin: 08/30/16 12:55 Dose: 25 mls/hr Ondansetron HCl (Zofran) 4 mg IVPUSH ONETIME ONE Stop: 08/30/16 02:42 Last Admin: 08/30/16 02:46 Dose: 4 mg Ondansetron HCl (Zofran Odt) 4 mg PO Q4H PRN PRN Reason: nausea, able to take PO Oseltamivir Phosphate (Tamiflu) 75 mg PO ONETIME ONE Stop: 08/30/16 04:45 Last Admin: 08/30/16 04:54 Dose: 75 mg Potassium Chloride (Klor-Con M20) 40 meq PO ONETIME ONE Stop: 08/30/16 11:31 Last Admin: 08/30/16 12:56 Dose: 40 meq - Exam Quality Assessment: No: supplemental oxygen General: alert, oriented, cooperative, no acute distress HEENT: Pupils equal, Pupils reactive, EOMI, Mucous membr. moist/pink Neck: supple, trachea midline, no JVD, no thyromegaly Lungs: Normal respiratory effort, Decreased breath sounds, Crackles (left base) , Rhonchi Cardiovascular: Irregular Rhythm Abdomen: bowel sounds present, soft, no tenderness, no distension (Female) Exam: Deferred Back Exam: normal inspection, decreased range of motion Extremities: no edema, normal pulses, no tenderness/swelling, no clubbing, no cyanosis, no calf tenderness Peripheral Pulses: 2+: dorsalis pedis (L), dorsalis pedis (R) Skin: warm, dry, intact Neurological: no new focal deficit Psy/Mental Status: alert, normal affect, normal mood - Problem List Review Problem List Initiated/Reviewed/Updated: Yes - My Orders Last 24 Hours: My Active Orders 08/30/16 06:01 Admission Status [Patient Status] [ADT] Routine 08/30/16 07:01 Code Status [Resuscitation Status] Routine 08/30/16 07:02 Activity as Tolerated [RC] .Routine 08/30/16 07:03 Bedrest [RC] ASDIRECTED 08/30/16 07:12 Ondansetron [Zofran] 4 mg IVPUSH Q6H PRN 08/30/16 07:15 NS + KCl 20mEq/L [Normal Saline with 20 mEq KCl] 1,000 ml IV ASDIRECTED 08/30/16 09:00 Hydrochlorothiazide 12.5 mg PO DAILY 08/30/16 09:07 Vaccines to be Administered [RC] PER UNIT ROUTINE 08/30/16 Breakfast Regular Diet [DIET] 08/31/16 05:00 Levofloxacin/Dextrose 5%-Water [Levaquin in D5W 750 MG/150 ML] 750 mg Premix Bag 1 bag IV Q48H 08/31/16 09:00 Oseltamivir [Tamiflu] 30 mg PO DAILY - Plan Plan:: A/P: SOB with hypoxia and fever: clinical pneumonia - Supplemental oxygen to keep sats >90% - Antipyretics PRN - RT: albuterol nebs, IS, Acapella, C&DB-- aggressive pulmonary toilet - Influenza exposure- negative rapid flu screen; PCR ordered; treat with prophylactic tamiflu and resp precautions until PCR returned - Repeat CXR: clar lungs, slight atelectasis within left costophrenic angle Hyponatremia - In part related to volume depletion; hydration and will start thermotabs BID - NA 128--132 - Thermotabs 1 tabs po BID - Follow am labs daily Anxiety - Cont home meds- xanax PRN at bedtime - Cont to monitor Generalized weakness - 2/2 acute illness - Influenza screening negative - Will check TFT and vit D level - PT/OT Resolved: S/p Hypokalemia - As above; volume depletion - Replace with IV and PO - Pharmacy to dose replacement - Follow am labs daily - Check mag level daily S/p Nausea - Hx of GERD and PUD - Zofran PRN - Protonix BID - IV pepcid x 1 - Allergic to carafate suspension - Close monitoring, monitor intake and meals - Hx of anxiety as well; she voices concerns to me that her is not well and is a lot for her to care for at home. This is likely contributing to nausea. PPI as above Chronic: Hx of HTN- cont home meds Afib- cont xarelto GERD/hx PUD- PPI as above Other: Continue current treatment DVT prophylax with SCD's and ambulation, xarelto GI prophylax as above CM/SW consult for dc planning Patient is full code
[2016-08-31] MEDS: Levofloxacin/Dextrose 5%-Water 750 MG in Premix Bag 1 BAG IV SCH (04:54)
[2016-08-31] MEDS: Acetaminophen 325 MG Tab PO PRN (04:57)
[2016-08-31] MEDS: Pantoprazole 40 MG Tab.CR PO SCH ×2 (05:00→16:31)
[2016-08-31] MEDS: Albuterol/Ipratropium 3.0-0.5 MG/3 ML Neb Soln NEB SCH (07:06)
[2016-08-31] MEDS ORDERED: Magnesium Sulfate/Water 2 GM in Premix Bag 1 BAG IV ONE (08:45)
[2016-08-31] MEDS: Losartan 25 MG Tab PO SCH (09:05)
[2016-08-31] MEDS: guaiFENesin 600 MG Tab.ER PO SCH ×2 (09:06→22:21)
[2016-08-31] MEDS: Saccharomyces Boulardii (Probiotic) 250 MG Cap PO SCH (09:06)
[2016-08-31] MEDS: Rivaroxaban 10 MG Tab PO SCH (09:06)
[2016-08-31] MEDS: Oseltamivir 30 MG Cap PO SCH (09:06)
[2016-08-31] MEDS: Potassium Chloride/Sodium Chloride Tab PO SCH ×2 (09:06→22:21)
[2016-08-31] MEDS: Hydrochlorothiazide 12.5 MG Cap PO SCH (09:06)
[2016-08-31] MEDS: Sodium Chloride 2% Ophth Soln 15 ML Bottle EYEBOTH SCH ×3 (09:07→22:21)
[2016-08-31] MEDS: NS + KCl 20mEq/L 1,000 ML IV SCH ×2 (09:23→17:43)
--- NOTE | 2016-08-31 16:29 | CR ---
Chest: 2 views of the chest were obtained. Comparison: Previous chest x-ray of 08/30/16. Slight atelectasis is seen within the lateral left costophrenic angle. Lungs otherwise are clear. Heart size is mildly enlarged. Upper mediastinum is normal. Bony structures shows degenerative spurring within the mid thoracic spine. Mild disc space narrowing is noted within portions of the mid and upper thoracic spine. Impression: 1. Heart size mildly enlarged which is more prominent than on previous exam. 2. Mild atelectasis and other incidental findings. Diagnostic code #3
[2016-08-31] MEDS ORDERED: Temazepam 15 MG Cap PO PRN (22:08)
[2016-09-01] MEDS: NS + KCl 20mEq/L 1,000 ML IV SCH ×2 (01:38→10:56)
[2016-09-01] MEDS: Acetaminophen 325 MG Tab PO PRN ×3 (05:43→22:10)
[2016-09-01] MEDS: Pantoprazole 40 MG Tab.CR PO SCH ×2 (05:43→15:22)
[2016-09-01] MEDS: Saccharomyces Boulardii (Probiotic) 250 MG Cap PO SCH (08:02)
[2016-09-01] MEDS: Losartan 25 MG Tab PO SCH (08:02)
[2016-09-01] MEDS: Hydrochlorothiazide 12.5 MG Cap PO SCH (08:03)
[2016-09-01] MEDS: Oseltamivir 30 MG Cap PO SCH (08:03)
[2016-09-01] MEDS: guaiFENesin 600 MG Tab.ER PO SCH ×2 (08:05→22:09)
[2016-09-01] MEDS: Rivaroxaban 10 MG Tab PO SCH (08:06)
[2016-09-01] MEDS: Potassium Chloride/Sodium Chloride Tab PO SCH ×2 (08:06→22:10)
[2016-09-01] MEDS: Sodium Chloride 2% Ophth Soln 15 ML Bottle EYEBOTH SCH ×3 (08:06→22:10)
--- NOTE | 2016-09-01 10:03 | PCM.PN ---
- General Info Date of Service: 09/01/16 Admission Dx/Problem (Free Text): Admission Diagnosis/Problem Admission Diagnosis/Problem Pneumonia Subjective Update: Follow Up Functional Status: Reports: pain controlled, tolerating diet, ambulating, urinating. Denies: new symptoms - Review of Systems General: Denies: Fever, Weakness, Fatigue, Malaise HEENT: Reports: no symptoms Pulmonary: Denies: shortness of breath Cardiovascular: Denies: Chest Pain Gastrointestinal: Denies: Abdominal pain, Nausea, Vomiting Genitourinary: Reports: no symptoms Musculoskeletal: Reports: no symptoms Skin: Reports: no symptoms Neurological: Denies: Confusion, Difficulty Walking, Gait Disturbance Psychiatric: Denies: depression, anxiety, hallucinations Systems Review Comment:: No overnight or acute issue. She feels like she is getting better. She has no new complaints. Her pressures have not been well controlled. - Patient Data Vitals - most recent: Last Vital Signs Temp 36.3 C 09/01/16 07:59 Pulse 54 L 09/01/16 04:31 Resp 18 09/01/16 07:59 BP 157/76 H 09/01/16 08:02 Pulse Ox 97 09/01/16 07:59 Weight - most recent: 85.548 kg I&O - last 24 hours: Intake & Output 08/31/16 09/01/16 09/01/16 22:59 06:59 14:59 Intake Total 1978 1568 Output Total 1500 1100 Balance 478 468 Lab Results last 24 hrs: Laboratory Results - last 24 hr 09/01/16 09/01/16 Range/Units 08:37 08:37 WBC 7.62 (3.98-10.04) K/mm3 RBC 4.24 (3.98-5.22) M/mm3 Hgb 12.9 (11.2-15.7) gm/L Hct 37.6 (34.1-44.9) % MCV 88.7 (79.4-94.8) fl MCH 30.4 (25.6-32.2) pg MCHC 34.3 (32.2-35.5) g/dl RDW Std Deviation 40.8 (36.4-46.3) fL Plt Count 95 L (182-369) K/mm3 MPV 10.2 (9.4-12.3) fl Neut % (Auto) 79.3 H (34.0-71.1) % Lymph % (Auto) 14.3 L (19.3-51.7) % [place] % (Auto) 5.8 (4.7-12.5) % Eos % (Auto) 0.4 L (0.7-5.8) Baso % (Auto) 0.1 (0.1-1.2) % Neut # 6.04 (1.56-6.13) K/mm3 Lymph # 1.09 L (1.18-3.74) K/mm3 [place] # 0.44 H (0.24-0.36) K/mm3 Eos # 0.03 L (0.04-0.36) K/mm3 Baso # 0.01 (0.01-0.08) K/mm3 Manual Slide Review Abnormal smear Sodium 133 L (136-145) mEq/L Potassium 4.6 (3.5-5.1) mEq/L Chloride 102 (98-107) mEq/L Carbon Dioxide 23 (21-32) mEq/L Anion Gap 12.6 (5-15) BUN 6 L (7-18) mg/dL Creatinine 0.8 (0.55-1.02) mg/dL Est Cr Clr Drug Dosing 51.63 mL/min Estimated GFR (MDRD) > 60 (>60) mL/min BUN/Creatinine Ratio 7.5 L (14-18) Glucose 113 (83-115) mg/dL Calcium 8.3 L (8.5-10.1) mg/dL Magnesium 1.8 (1.8-2.4) mg/dl C-Reactive Protein 7.5 H* (<1.0) mg/dL Med Orders - Current: Current Medications Acetaminophen (Tylenol) 325 mg PO QID PRN PRN Reason: Pain Last Admin: 09/01/16 05:43 Dose: 325 mg Albuterol (Proventil Neb Soln) 2.5 mg NEB Q2H PRN PRN Reason: Shortness Of Breath/wheezing Alprazolam (Xanax) 0.25 mg PO BEDTIME PRN PRN Reason: Sleep Artificial Tears (Isopto Tears 0.5% Ophth Soln) 0 ml EYEBOTH QID PRN PRN Reason: Dry Eyes Docusate Sodium (Colace) 100 mg PO BID PRN PRN Reason: Constipation Guaifenesin (Mucinex) 1,200 mg PO BID [facility] Last Admin: 09/01/16 08:05 Dose: 1,200 mg Hydrochlorothiazide (Hydrochlorothiazide) 12.5 mg PO DAILY [facility] Last Admin: 09/01/16 08:03 Dose: 12.5 mg Levofloxacin/Dextrose 750 mg/ (Premix) 150 mls @ 100 mls/hr IV Q48H [facility] Last Admin: 08/31/16 04:54 Dose: 100 mls/hr Potassium Chloride/Sodium Chloride (Normal Saline With 20 Meq Kcl) 1,000 mls @ 125 mls/hr IV ASDIRECTED [facility] Last Admin: 09/01/16 01:38 Dose: 125 mls/hr Losartan Potassium (Cozaar) 50 mg PO DAILY [facility] Last Admin: 09/01/16 08:02 Dose: 50 mg Magnesium Hydroxide (Milk Of Magnesia) 30 ml PO Q12H PRN PRN Reason: Constipation Last Admin: 08/31/16 09:34 Dose: 30 ml Magnesium Sulfate (Pharmacy To Dose - Magnesium Replacement) 0 dose .XX ASDIRECTED PRN PRN Reason: RX TO MONITOR MAG LEVELS Ondansetron HCl (Zofran) 4 mg IVPUSH Q6H PRN PRN Reason: Nausea Oral Electrolytes (Thermotabs) 1 each PO BID [facility] Last Admin: 09/01/16 08:06 Dose: 1 each Oseltamivir Phosphate (Tamiflu) 30 mg PO DAILY [facility] Stop: 09/02/16 12:00 Last Admin: 09/01/16 08:03 Dose: 30 mg [facility]) [facility] Last Admin: 09/01/16 05:43 Dose: 40 mg Polyethylene Glycol (Miralax) 17 gm PO DAILY PRN PRN Reason: Constipation Potassium Chloride (Pharmacy To Dose - Potassium Replacement) 0 dose .XX ASDIRECTED PRN PRN Reason: RX TO MONITOR K LEVELS Rivaroxaban (Xarelto) 20 mg PO DAILY [facility] Last Admin: 09/01/16 08:06 Dose: 20 mg Saccharomyces Boulardii (Florastor) 250 mg PO DAILY [facility] Last Admin: 09/01/16 08:02 Dose: 250 mg Sodium Chloride (Saline Flush) 10 ml FLUSH ASDIRECTED PRN PRN Reason: Keep Vein Open Last Admin: 08/30/16 02:46 Dose: 10 ml Sodium Chloride (Rita 128 2% Ophth Soln) 0 ml EYEBOTH TID [facility] Last Admin: 09/01/16 08:06 Dose: 1 drop Temazepam (Restoril) 15 mg PO BEDTIME PRN PRN Reason: Insomnia Last Admin: 08/31/16 22:21 Dose: 15 mg Discontinued Medications Albuterol/Ipratropium (Duoneb 3.0-0.5 Mg/3 Ml) 3 ml NEB TID LISA Albuterol/Ipratropium (Duoneb 3.0-0.5 Mg/3 Ml) 3 ml NEB TIDRT LISA Last Admin: 08/31/16 07:06 Dose: 3 ml Diphtheria/Tetanus/Acell Pertussis (Boostrix) 0.5 ml IM .ONCE ONE Stop: 08/30/16 09:08 Famotidine (Pepcid) 20 mg IVPUSH ONETIME ONE Stop: 08/30/16 11:31 Last Admin: 08/30/16 12:55 Dose: 20 mg Guaifenesin (Mucinex) 600 mg PO BID [facility] Last Admin: 08/31/16 22:21 Dose: 600 mg Sodium Chloride (Normal Saline) 1,000 mls @ 125 mls/hr IV ASDIRECTED [facility] Last Admin: 08/30/16 02:46 Dose: 125 mls/hr Levofloxacin/Dextrose 750 mg/ (Premix) 150 mls @ 100 mls/hr IV ONETIME ONE Stop: 08/30/16 06:13 Last Admin: 08/30/16 04:59 Dose: 100 mls/hr Potassium Chloride/Sodium Chloride (Normal Saline With 20 Meq Kcl) 1,000 mls @ [facility] Last Admin: 08/30/16 04:58 Dose: 125 mls/hr Magnesium Sulfate 2 gm/ Premix 50 mls @ 25 mls/hr IV ONETIME ONE Stop: 08/30/16 13:29 Last Admin: 08/30/16 12:55 Dose: 25 mls/hr Magnesium Sulfate 2 gm/ Premix 50 mls @ 25 mls/hr IV ONETIME ONE Stop: 08/31/16 10:44 Last Admin: 08/31/16 09:06 Dose: 25 mls/hr Ondansetron HCl (Zofran) 4 mg IVPUSH ONETIME ONE Stop: 08/30/16 02:42 Last Admin: 08/30/16 02:46 Dose: 4 mg Ondansetron HCl (Zofran Odt) 4 mg PO Q4H PRN PRN Reason: nausea, able to take PO Oseltamivir Phosphate (Tamiflu) 75 mg PO ONETIME ONE Stop: 08/30/16 04:45 Last Admin: 08/30/16 04:54 Dose: 75 mg Potassium Chloride (Klor-Con M20) 40 meq PO ONETIME ONE Stop: 08/30/16 11:31 Last Admin: 08/30/16 12:56 Dose: 40 meq - Exam Quality Assessment: No: supplemental oxygen General: alert, oriented, cooperative, no acute distress HEENT: Pupils equal, Pupils reactive, EOMI, Mucous membr. moist/pink Neck: supple, trachea midline, no JVD, no thyromegaly Lungs: Normal respiratory effort, Decreased breath sounds Cardiovascular: Irregular Rhythm Abdomen: bowel sounds present, soft, no tenderness, no distension (Female) Exam: Deferred Back Exam: normal inspection, decreased range of motion Extremities: no edema, normal pulses, no tenderness/swelling, no clubbing, no cyanosis, no calf tenderness Peripheral Pulses: 2+: dorsalis pedis (L), dorsalis pedis (R) Skin: warm, dry, intact Neurological: no new focal deficit Psy/Mental Status: alert, normal affect, normal mood - Problem List Review Problem List Initiated/Reviewed/Updated: Yes - My Orders Last 24 Hours: My Active Orders 08/31/16 22:08 Temazepam [Restoril] 15 mg PO BEDTIME PRN 09/01/16 06:44 EKG 12 Lead [EKG Documentation Completion] [RC] STAT 09/01/16 07:30 LEGIONELLA ANTIGEN [MREF] Routine 09/01/16 09:00 guaiFENesin [Mucinex] 1,200 mg PO BID - Plan Plan:: A/P: SOB with hypoxia and fever: clinical pneumonia, she is improving - Supplemental oxygen to keep sats >90% - Antipyretics PRN - RT: albuterol nebs, IS, Acapella, C&DB-- aggressive pulmonary toilet - Influenza exposure- negative rapid flu screen; PCR ordered; treat with prophylactic tamiflu and resp precautions until PCR returned - Repeat CXR: clar lungs, slight atelectasis within left costophrenic angle Hyponatremia - In part related to volume depletion; hydration and will start thermotabs BID - NA 128--132--> 133 - Thermotabs 1 tabs po BID - Follow am labs daily Anxiety, Stable - Cont home meds--> xanax PRN at bedtime - Cont to monitor Generalized Weakness, improving - 2/2 acute illness - Influenza screening negative - TFT panel: normal - Vit D level pending - Continue PT/OT Resolved: S/p Hypokalemia - As above; volume depletion - Replace with IV and PO - Pharmacy to dose replacement - Follow am labs daily - Check mag level daily S/p Nausea - Hx of GERD and PUD - Zofran PRN - Protonix BID - IV pepcid x 1 - Allergic to carafate suspension - Close monitoring, monitor intake and meals - Hx of anxiety as well; she voices concerns to me that her is not well and is a lot for her to care for at home. This is likely contributing to nausea. PPI as above Chronic: Hx of HTN- cont home meds Afib- cont xarelto GERD/hx PUD- PPI as above Other: She is fairly stable Continue current treatment DVT prophylax with SCD's and ambulation, xarelto GI prophylax as above CM/SW consult for dc planning Patient is full code With 's permission, discussed CT scan findings with her. She is amenable to thoracentesis. She will speak to her about the procedure.
[2016-09-01] MEDS ORDERED: Sodium Chloride 0.9% 10 ML Syringe FLUSH PRN (12:01)
[2016-09-01] MEDS: hydrALAZINE 20 MG/ML SDV IVPUSH PRN (12:19)
[2016-09-02] MEDS: hydrALAZINE 20 MG/ML SDV IVPUSH PRN (01:00)
[2016-09-02] MEDS: Pantoprazole 40 MG Tab.CR PO SCH ×2 (05:17→15:38)
[2016-09-02] MEDS: Levofloxacin/Dextrose 5%-Water 750 MG in Premix Bag 1 BAG IV SCH (05:17)
--- NOTE | 2016-09-02 07:20 | PCM.DCSUM1 ---
Discharge Summary - Hospital Course Free Text/Narrative:: Hawa is a pleasant 80yo female admitted through the ED early this morning with clinical pneumonia, influenza exposure, SOB with hypoxia, fever, cough, generalized weakness and nausea. She has PMH significant for a.fib on xarelto, HTN, HLD, GERD, PUD, chronic LBP, anxiety, hx breast cancer, ? hx of renal mass/ tumor. She has had cough x 3-5 days, worse the past 1-2 days. She woke around 11pm with chills, sweats and SOB. She was weak and felt she may faint. She called her daughter for help who came to her home and drove her to the ED for evaluation. Patient's is currently ill with influenza B and pneumonia. 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 She uses a cane for assistance with ambulation. She is not on home oxygen therapy. ED evaluation found patient to be hypoxic, oxygen was applied. CXR is unremarkable. EKG done showing afib with rate of 79bpm. Lab evaluation as follows: WBC 7.7, Hgb 13.6, hct 37.8, Plt 107. CMP with Na+ low at 128, K+ 3.2, BUN 11, Creat 1.0, glucose 131, AST 52, ALT 33, alk phos 117. Troponin was < 0.017. UA with only trace blood. Hospitalist service is consulted for admission for clinical pneumonia, hyponatremia, hypokalemia, generalized weakness. Patient is Full Code. Patient was admitted to medical surgical unit; hydrated with IVF, treated for clinical pneumonia with IV levaquin and tamiflu prophylactic dosing as she had exposure with being flu + at home. Her Flu was negative however. Repeat CXR was unremarkable. Labs were with improving hyponatremia and hypokalemia had resolved. She worked with PT/OT and did well. She will be discharged home today with follow up with PCP within 5-7 days for recheck. DC on Levaquin and HCTZ 12.5mg for mild elevated B/P, cont other home meds. - Discharge Data Discharge Date: 09/02/16 (admit date 08/30/16) Discharge Disposition: Home, Self-Care 01 Condition: Good - Discharge Diagnosis/Problem(s) (1) Pneumonia SNOMED Code(s): 693545968 ICD Code: J18.9 - PNEUMONIA, UNSPECIFIED ORGANISM Status: Acute Priority : High Current Visit: Yes Qualifiers: Pneumonia type: due to unspecified organism Laterality: unspecified laterality Lung location: unspecified part of lung Qualified Code(s): J18.9 - Pneumonia, unspecified organism (2) Hypokalemia SNOMED Code(s): 71772753 ICD Code: E87.6 - HYPOKALEMIA Status: Resolved Priority: High Current Visit: Yes (3) Hyponatremia SNOMED Code(s): 74485851 ICD Code: E87.1 - HYPO-OSMOLALITY AND HYPONATREMIA Status: Acute Priority : High Current Visit: Yes (4) Nausea SNOMED Code(s): 504769351 ICD Code: R11.0 - NAUSEA Status: Resolved Priority: High Current Visit : Yes (5) Generalized weakness SNOMED Code(s): 04354508 ICD Code: R53.1 - WEAKNESS Status: Acute Priority: High Current Visit: Yes - Patient Summary/Data Operative Procedure(s) Performed: None Complications: None Consults: Consultations 08/30/16 08:27 Consult to Case Management [CONS] Routine Consult to Automatic Packer Operator [CONS] Routine OT Evaluation and Treatment [CONS] Routine PT Evaluation and Treatment [CONS] Routine Respiratory Care Assess and Treatment [CONS] Routine Labs Pending at D/C: None Recommended Follow-up Testing/Procedures: Follow up with PCP, Dr. Nettles within 5-7 days of discharge Planned Operative Procedure(s) after DC: None Hospital Course: As above - Patient Instructions Diet: Usual Diet as Tolerated, Drink 8-10+ Glasses/Day Activity: Apply Ice, Rest and Relax Today Driving: Do Not Drive Showering/Bathing: May Shower Notify Provider of: Fever, Increased Pain, Nausea and/or Vomiting (worsening cough, shortness of breath, chest pains, dizziness) - Discharge Plan Prescriptions/Med Rec: Hydrochlorothiazide 12.5 mg PO DAILY #30 cap Levofloxacin [Levaquin] 500 mg PO Q24H #5 tablet Home Medications: Home Meds Acetaminophen [Tylenol] 325 mg PO QID PRN 04/09/14 [History] Fish Oil/[place]-3 Fatty Acids [Fish Oil 1,000 MG] 1,000 gm PO DAILY 04/09/14 [ History] L Acidophil/B Lactis/B Longum [Florajen3] 460 mg PO DAILY 04/09/14 [History] Losartan/Hydrochlorothiazide [Losartan-HCTZ 50-12.5 MG] 50 mg PO DAILY 04/09/14 [History] Omeprazole 20 mg PO BID 04/09/14 [History] Rivaroxaban [Xarelto] 20 mg PO DAILY 04/09/14 [History] Sodium Chloride [Rita-128] 1 drop EYEBOTH TID 04/09/14 [History] Tetrahydrozoline HCl 15 ml OP QID PRN 04/09/14 [History] ALPRAZolam [Alprazolam] 0.25 mg PO BEDTIME PRN 08/30/16 [History] Hydrochlorothiazide 12.5 mg PO DAILY #30 cap 09/02/16 [Rx] Levofloxacin [Levaquin] 500 mg PO Q24H #5 tablet 09/02/16 [Rx] Patient Handouts: Hyponatremia, [id number], Hypokalemia, Potassium Content of Foods, Community-Acquired Pneumonia, Adult, [id number] Forms: ED Department Discharge Referrals: Quinn Nettles MD [Physician] - - Discharge Summary/Plan Comment DC Time >30 min.: Yes (40 min) - General Info Date of Service: 09/02/16 Admission Dx/Problem (Free Text: Admission Diagnosis/Problem Admission Diagnosis/Problem Pneumonia Functional Status: Reports: pain controlled, tolerating diet, ambulating, urinating. Denies: new symptoms - Review of Systems General: Reports: No Symptoms HEENT: Reports: no symptoms Pulmonary: Reports: no symptoms, cough (much improved to resolved) Cardiovascular: Reports: No Symptoms Gastrointestinal: Reports: No symptoms Genitourinary: Reports: no symptoms Musculoskeletal: Reports: no symptoms Skin: Reports: no symptoms Neurological: Reports: No Symptoms Psychiatric: Reports: no symptoms - Patient Data Vitals - Most Recent: Last Vital Signs Temp 97.5 F 09/02/16 05:15 Pulse 72 09/02/16 05:15 Resp 20 09/02/16 05:15 BP 139/69 09/02/16 05:15 Pulse Ox 96 09/02/16 05:15 Weight - Most Recent: 185 lb 6.4 oz I&O - Last 24 hours: Intake & Output 09/01/16 09/02/16 09/02/16 22:59 06:59 14:59 Intake Total 1720 500 Output Total 2700 2050 Balance -980 -1550 Lab Results - Last 24 hrs: Laboratory Results - last 24 hr 09/01/16 09/01/16 09/02/16 Range/Units 08:37 08:37 05:29 WBC 7.62 (3.98-10.04) K/mm3 RBC 4.24 (3.98-5.22) M/mm3 Hgb 12.9 (11.2-15.7) gm/L Hct 37.6 (34.1-44.9) % MCV 88.7 (79.4-94.8) fl MCH 30.4 (25.6-32.2) pg MCHC 34.3 (32.2-35.5) g/dl RDW Std Deviation 40.8 (36.4-46.3) fL Plt Count 95 L (182-369) K/mm3 MPV 10.2 (9.4-12.3) fl Neut % (Auto) 79.3 H (34.0-71.1) % Lymph % (Auto) 14.3 L (19.3-51.7) % [place] % (Auto) 5.8 (4.7-12.5) % Eos % (Auto) 0.4 L (0.7-5.8) Baso % (Auto) 0.1 (0.1-1.2) % Neut # 6.04 (1.56-6.13) K/mm3 Lymph # 1.09 L (1.18-3.74) K/mm3 [place] # 0.44 H (0.24-0.36) K/mm3 Eos # 0.03 L (0.04-0.36) K/mm3 Baso # 0.01 (0.01-0.08) K/mm3 Manual Slide Review Abnormal smear Sodium 133 L (136-145) mEq/L Potassium 4.6 (3.5-5.1) mEq/L Chloride 102 (98-107) mEq/L Carbon Dioxide 23 (21-32) mEq/L Anion Gap 12.6 (5-15) BUN 6 L (7-18) mg/dL Creatinine 0.8 (0.55-1.02) mg/dL Est Cr Clr Drug Dosing 51.63 mL/min Estimated GFR (MDRD) > 60 (>60) mL/min BUN/Creatinine Ratio 7.5 L (14-18) Glucose 113 (83-115) mg/dL Calcium 8.3 L (8.5-10.1) mg/dL Magnesium 1.8 (1.8-2.4) mg/dl C-Reactive Protein 7.5 H* (<1.0) mg/dL Urine Color Yellow (Yellow) Urine Appearance Clear (Clear) Urine pH 7.5 (5.0-8.0) Ur Specific [place] 1.020 (1.005-1.030) Urine Protein Negative (Negative) Urine Glucose (UA) Negative (Negative) Urine Ketones Negative (Negative) Urine Occult Blood Negative (Negative) Urine Nitrite Negative (Negative) Urine Bilirubin Negative (Negative) Urine Urobilinogen 0.2 (0.2-1.0) Ur Leukocyte Esterase Negative (Negative) Urine RBC 0-5 (0-5) /hpf Urine WBC 0-5 (0-5) /hpf Ur Squamous Epith Cells 0-5 (0-5) /hpf Amorphous Sediment Few H (NOT SEEN) /hpf Urine Bacteria Rare (FEW) /hpf Urine Mucus Not seen (FEW) /hpf Med Orders - Current: Current Medications Acetaminophen (Tylenol) 325 mg PO QID PRN PRN Reason: Pain Last Admin: 09/01/16 22:10 Dose: 325 mg Albuterol (Proventil Neb Soln) 2.5 mg NEB Q2H PRN PRN Reason: Shortness Of Breath/wheezing Alprazolam (Xanax) 0.25 mg PO BEDTIME PRN PRN Reason: Sleep Last Admin: 09/01/16 22:11 Dose: 0.25 mg Artificial Tears (Isopto Tears 0.5% Ophth Soln) 0 ml EYEBOTH QID PRN PRN Reason: Dry Eyes Docusate Sodium (Colace) 100 mg PO BID PRN PRN Reason: Constipation Guaifenesin (Mucinex) 1,200 mg PO BID LISA Last Admin: 09/01/16 22:09 Dose: 1,200 mg Hydralazine HCl (Apresoline) 20 mg IVPUSH Q4H PRN PRN Reason: Hypertension Last Admin: 09/02/16 01:00 Dose: 20 mg Hydrochlorothiazide (Hydrochlorothiazide) 12.5 mg PO DAILY [facility] Last Admin: 09/01/16 08:03 Dose: 12.5 mg Levofloxacin/Dextrose 750 mg/ (Premix) 150 mls @ 100 mls/hr IV Q48H [facility] Last Admin: 09/02/16 05:17 Dose: 100 mls/hr Losartan Potassium (Cozaar) 50 mg PO DAILY [facility] Last Admin: 09/01/16 08:02 Dose: 50 mg Magnesium Hydroxide (Milk Of Magnesia) 30 ml PO Q12H PRN PRN Reason: Constipation Last Admin: 08/31/16 09:34 Dose: 30 ml Magnesium Sulfate (Pharmacy To Dose - Magnesium Replacement) 0 dose .XX ASDIRECTED PRN PRN Reason: RX TO MONITOR MAG LEVELS Ondansetron HCl (Zofran) 4 mg IVPUSH Q6H PRN PRN Reason: Nausea Oral Electrolytes (Thermotabs) 1 each PO BID [facility] Last Admin: 09/01/16 22:10 Dose: 1 each Oseltamivir Phosphate (Tamiflu) 30 mg PO DAILY [facility] Stop: 09/02/16 12:00 Last Admin: 09/01/16 08:03 Dose: 30 mg Pantoprazole Sodium (Protonix) 40 mg PO BIDAC [facility] Last Admin: 09/02/16 05:17 Dose: 40 mg Polyethylene Glycol (Miralax) 17 gm PO DAILY PRN PRN Reason: Constipation Potassium Chloride (Pharmacy To Dose - Potassium Replacement) 0 dose .XX ASDIRECTED PRN PRN Reason: RX TO MONITOR K LEVELS Rivaroxaban (Xarelto) 20 mg PO DAILY [facility] Last Admin: 09/01/16 08:06 Dose: 20 mg Saccharomyces Boulardii (Florastor) 250 mg PO DAILY [facility] Last Admin: 09/01/16 08:02 Dose: 250 mg Sodium Chloride (Saline Flush) 10 ml FLUSH ASDIRECTED PRN PRN Reason: Keep Vein Open Last Admin: 08/30/16 02:46 Dose: 10 ml Sodium Chloride (Rita 128 2% Ophth Soln) 0 ml EYEBOTH TID [facility] Last Admin: 09/01/16 22:10 Dose: 1 drop Sodium Chloride (Saline Flush) 10 ml FLUSH ASDIRECTED PRN PRN Reason: Keep Vein Open Temazepam (Restoril) 15 mg PO BEDTIME PRN PRN Reason: Insomnia Last Admin: 08/31/16 22:21 Dose: 15 mg Discontinued Medications Albuterol/Ipratropium (Duoneb 3.0-0.5 Mg/3 Ml) 3 ml NEB TID [facility] Albuterol/Ipratropium (Duoneb 3.0-0.5 Mg/3 Ml) 3 ml NEB TIDRT [facility] Last Admin: 08/31/16 07:06 Dose: 3 ml Diphtheria/Tetanus/Acell Pertussis (Boostrix) 0.5 ml IM .ONCE ONE Stop: 08/30/16 09:08 Famotidine (Pepcid) 20 mg IVPUSH ONETIME ONE Stop: 08/30/16 11:31 Last Admin: 08/30/16 12:55 Dose: 20 mg Guaifenesin (Mucinex) 600 mg PO BID [facility] Last Admin: 08/31/16 22:21 Dose: 600 mg Sodium Chloride (Normal Saline) 1,000 mls @ 125 mls[facility] Last Admin: 08/30/16 02:46 Dose: 125 mls/hr Levofloxacin/Dextrose 750 mg/ (Premix) 150 mls @ 100 mls/hr IV ONETIME ONE Stop: 08/30/16 06:13 Last Admin: 08/30/16 04:59 Dose: 100 mls/hr Potassium Chloride/Sodium Chloride (Normal Saline With 20 Meq Kcl) 1,000 mls @ 125 mls/hr [facility] Last Admin: 08/30/16 04:58 Dose: 125 mls/hr Potassium Chloride/Sodium Chloride (Normal Saline With 20 Meq Kcl) 1,000 mls [facility] Last Admin: 09/01/16 10:56 Dose: 125 mls/hr Magnesium Sulfate 2 gm/ Premix 50 mls @ 25 mls/hr IV ONETIME ONE Stop: 08/30/16 13:29 Last Admin: 08/30/16 12:55 Dose: 25 mls/hr Magnesium Sulfate 2 gm/ Premix 50 mls @ 25 mls/hr IV ONETIME ONE Stop: 08/31/16 10:44 Last Admin: 08/31/16 09:06 Dose: 25 mls/hr Ondansetron HCl (Zofran) 4 mg IVPUSH ONETIME ONE Stop: 08/30/16 02:42 Last Admin: 08/30/16 02:46 Dose: 4 mg Ondansetron HCl (Zofran Odt) 4 mg PO Q4H PRN PRN Reason: nausea, able to take PO Oseltamivir Phosphate (Tamiflu) 75 mg PO ONETIME ONE Stop: 08/30/16 04:45 Last Admin: 08/30/16 04:54 Dose: 75 mg Potassium Chloride (Klor-Con M20) 40 meq PO ONETIME ONE Stop: 08/30/16 11:31 Last Admin: 08/30/16 12:56 Dose: 40 meq - Exam Quality Assessment: Reports: DVT prophylaxis General: Reports: alert, oriented, cooperative, no acute distress HEENT: Reports: Pupils equal, Pupils reactive, EOMI, Mucous membr. moist/pink Neck: Reports: supple Lungs: Reports: Clear to auscultation, Normal respiratory effort Cardiovascular: Reports: Regular Rate, Regular Rhythm Abdomen: Reports: bowel sounds present, soft, no tenderness, no distension (Female) Exam: Deferred Rectal (Female) Exam: Deferred Back Exam: Reports: normal inspection Extremities: Reports: no edema Skin: Reports: warm, dry, intact Neurological: Reports: no new focal deficit Psy/Mental Status: Reports: alert, normal affect, normal mood *Q Meaningful Use (DIS) - VTE *Q VTE Criteria *Q: - Stroke *Q Stroke Criteria *Q: - AMI *Q AMI Criteria *Q:
[2016-09-02] MEDS: Saccharomyces Boulardii (Probiotic) 250 MG Cap PO SCH (09:50)
[2016-09-02] MEDS: guaiFENesin 600 MG Tab.ER PO SCH (09:51)
[2016-09-02] MEDS: Hydrochlorothiazide 12.5 MG Cap PO SCH (09:51)
[2016-09-02] MEDS: Oseltamivir 30 MG Cap PO SCH (09:51)
[2016-09-02] MEDS: Potassium Chloride/Sodium Chloride Tab PO SCH (09:52)
[2016-09-02] MEDS: Acetaminophen 325 MG Tab PO PRN (09:53)
[2016-09-02] MEDS: Losartan 25 MG Tab PO SCH (09:53)
[2016-09-02] MEDS: Rivaroxaban 10 MG Tab PO SCH (09:54)
[2016-09-02] MEDS: Sodium Chloride 2% Ophth Soln 15 ML Bottle EYEBOTH SCH ×2 (09:55→15:38)
[2016-09-02] MEDS ORDERED: Magnesium Sulfate/Water 2 GM in Premix Bag 1 BAG IV ONE (10:00)
[2016-09-02 13:13] VITALS: BP 146/73
== END 2016-09-02 15:35 | disposition home or self-care (01) | DRG 194 ==
LOC: JD.ED 02:17 → JD.MS 05:15
PROVIDERS: ADMIT Internal Medicine; ATTEND Internal Medicine
DX: J18.9 Pneumonia, unspecified organism (principal); J09.X2 Influenza due to identified novel influenza A virus with other respiratory manifestations; E87.1 Hypo-osmolality and hyponatremia; R09.02 Hypoxemia; E87.6 Hypokalemia; E86.9 Volume depletion, unspecified; R11.0 Nausea; K21.9 Gastro-esophageal reflux disease without esophagitis; K27.9 Peptic ulcer, site unspecified, unspecified as acute or chronic, without hemorrhage or perforation; F41.9 Anxiety disorder, unspecified; M54.9 Dorsalgia, unspecified; R53.1 Weakness; I25.10 Atherosclerotic heart disease of native coronary artery without angina pectoris; I10 Essential (primary) hypertension; I48.91 Unspecified atrial fibrillation; E78.00 Pure hypercholesterolemia, unspecified; E78.5 Hyperlipidemia, unspecified; Z85.3 Personal history of malignant neoplasm of breast; Z85.528 Personal history of other malignant neoplasm of kidney; G89.29 Other chronic pain; M54.5 Low back pain; Z79.01 Long term (current) use of anticoagulants; Z79.899 Other long term (current) drug therapy; Z88.0 Allergy status to penicillin; Z88.1 Allergy status to other antibiotic agents; Z88.6 Allergy status to analgesic agent; Z88.8 Allergy status to other drugs, medicaments and biological substances
CPT/HCPCS: 36415; 71020; 80053; 81001; 84484; 85025; 87040; 87804 ×2; 93005; 96361; 96365; 96368; 96375; 99285; A9270; J1956; J2405; J3480; J7040; J7050; 80048; 82306; 83735; 84443; 86140; 87502; 87503; 87899; 94640-76; 94664; 94667; 94760; 94761; 97110-GP; 97116-GP; 97161-GP; 97165-GO; 97530-GP; 99284; J0360; J3475

== ENCOUNTER 2019-02-12 14:23 | Observation (INO) | payer MEDICARE, BC ==
--- NOTE | 2019-02-12 14:53 | EDM.PDOC ---
ED HPI GENERAL MEDICAL PROBLEM - General Chief Complaint: Cardiovascular Problem Stated Complaint: SENT BY DR XAVIER FOR BLOOD TRANFUSION Time Seen by Provider: 02/12/19 14:48 Source of Information: Reports: Patient, Family (Friend) History Limitations: Reports: No Limitations - History of Present Illness INITIAL COMMENTS - FREE TEXT/NARRATIVE: 83-year-old female presents to the ED at the request of [facility] walk-in [facility] physician Dr. Xavier. She presented there for evaluation of feeling fatigued and dyspneic on minimal exertion. She was found to have a hemoglobin of 6.7. Patient is currently on Xarelto-20mg -daily due to artificial heart valve. Patient underwent a right hemicolectomy through laparoscopic-assisted surgery on January 20 at [facility] and had a primary anastomosis of the right hemicolon. She believes she required a unit of blood a week prior to the surgery to build her up and then 2 units either after or during surgery while in hospital. Since getting out of hospital January 25. Hemoglobin is been gradually declining. Apparently her Xarelto is been on again off again I be held for a few days at a time patient hasn't appreciated any blood in her stool or black tarry stools. Onset: Gradual Onset Date: 01/20/19 (Patient had underwent a right hemicolectomy due to cancer the colon at [facility] in [place] on the seventh of this month. She was kept in hospital until the and discharged home. Since that time. Hemoglobin has been gradually decreasing and she's been on again and off again with her Xarelto. Hemoglobin clinic today was reported to be as low as 6.70.) Duration: Day(s):, Getting Worse (More short of breath on minimal exertion. Orthopnea and weakness. Dyspnea on minimal exertion.) Quality: Reports: Other Severity: Moderate (Primarily weakness and dyspnea on minimal exertion) Improves with: Reports: Rest Worsens with: Reports: Other Context: Reports: Other (Recent right hemicolectomy done through the laparoscope for colon cancer with primary anastomosis). Denies: Activity, Exercise (Walking a short distance make her very short of breath.), Lifting, Sick Contact, Trauma Associated Symptoms: Reports: Cough, Malaise (Nonproductive cough), Shortness of Breath, Weakness (Minimal exertion). Denies: Confusion, Chest Pain, cough w sputum, Diaphoresis, Fever/Chills, Headaches, Loss of Appetite, Nausea/Vomiting , Rash, Seizure, Syncope Treatments COMEDIAN: Reports: Other (see below) (None.) - Related Data Allergies Allergy/AdvReac Type Severity Reaction Status Date / Time ampicillin Allergy Cannot Verified 02/12/19 16:54 Remember clarithromycin [From Biaxin] Allergy Cannot Verified 02/12/19 16:54 Remember glucosamine Allergy Anaphylactic Verified 02/12/19 16:54 Shock hydrocodone Allergy Cannot Verified 02/12/19 16:54 Remember propoxyphene HCl Allergy Cannot Verified 02/12/19 16:54 [From Darvon] Remember amoxicillin [Amoxicillin] AdvReac Other Verified 02/12/19 16:54 aspirin AdvReac Cannot Verified 02/12/19 16:54 Remember clindamycin AdvReac Cannot Verified 02/12/19 16:54 Remember ibuprofen AdvReac Other Verified 02/12/19 16:54 olmesartan medoxomil AdvReac Other Verified 02/12/19 16:54 [From Benicar] Penicillins AdvReac Nausea and Verified 02/12/19 16:54 Vomiting sucralfate [From Carafate] AdvReac Other Verified 02/12/19 16:54 tramadol AdvReac Cannot Verified 02/12/19 16:54 Remember warfarin [Warfarin] AdvReac Other Verified 02/12/19 16:54 Home Meds: Home Meds Acetaminophen [Tylenol] 325 mg PO QID PRN 04/09/14 [History] Fish Oil/[place]-3 Fatty Acids [Fish Oil 1,000 MG] 1,000 gm PO DAILY 04/09/14 [ History] L Acidophil/B Lactis/B Longum [Florajen3] 460 mg PO DAILY 04/09/14 [History] Losartan/Hydrochlorothiazide [Losartan-HCTZ 50-12.5 MG] 50 mg PO DAILY 04/09/14 [History] Omeprazole 20 mg PO BID 04/09/14 [History] Rivaroxaban [Xarelto] 20 mg PO DAILY 04/09/14 [History] Sodium Chloride [Rita-128] 1 drop EYEBOTH TID 04/09/14 [History] Tetrahydrozoline HCl 15 ml OP QID PRN 04/09/14 [History] ALPRAZolam [Alprazolam] 0.25 mg PO BEDTIME PRN 08/30/16 [History] Levofloxacin [Levaquin] 500 mg PO Q24H #5 tablet 09/02/16 [Rx] Past Medical History HEENT History: Reports: Cataract Cardiovascular History: Reports: Afib, Angina, CAD, High Cholesterol, Hypertension Gastrointestinal History: Reports: GERD, PUD Genitourinary History: Reports: Other (See Below) Other Genitourinary History: Kidney tumor??? CT scan Other [employer] History: Hysterectomy, 2 vaginal births Musculoskeletal History: Reports: Back Pain, Chronic Psychiatric History: Reports: Anxiety Oncologic (Cancer) History: Reports: Colon, Other (See Below) Other Oncologic History: colon cancer removed january 20 2019 - Infectious Disease History Infectious Disease History: Reports: Chicken Pox - Past Surgical History HEENT Surgical History: Reports: Eye Surgery GI Surgical History: Reports: Appendectomy, Cholecystectomy, Colonoscopy Oncologic Surgical History: Reports: Biopsy of Breast Social & Family History - Family History Family Medical History: Noncontributory - Tobacco Use Smoking Status *Q: Never Smoker - Caffeine Use Caffeine Use: Reports: Coffee - Living Situation & Occupation Living situation: Reports: , Alone 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 Denies : Fever, Chills HEENT: Reports: Glasses (Appetite is coming back.), Vision Change (Mild impaired vision) Respiratory: Reports: Shortness of Breath, Cough. Denies: Wheezing, Pleuritic Chest Pain (On minimal exertion), Sputum (Nonproductive cough) Cardiovascular: Reports: Blood Pressure Problem. Denies: Chest Pain, Claudication, Orthopnea Endocrine: Reports: Fatigue GI/Abdominal: Reports: Decreased Appetite (Initially but it is getting much better.), Other (She reports bowels are back to normal formed without black or blood). Denies: Abdominal Pain, Anorexia, Black Stool, Bloody Stool : Reports: Frequency, Incontinence (Has both stress and urgency components) Musculoskeletal: Reports: Back Pain, Joint Pain (Knees hips low back neck at times) Skin: Reports: Pallor Neurological: Reports: Dizziness (Dizziness sometimes when she stands up too quickly), Difficulty Walking, Weakness. Denies: Confusion, Paresthesia, Tremors , Trouble Speaking Psychiatric: Reports: No Symptoms (Due to weakness in her legs.) Hematologic/Lymphatic: Reports: No Symptoms Immunologic: Reports: No Symptoms ED EXAM, GENERAL - Physical Exam Exam: See Below Exam Limited By: No Limitations General Appearance: Alert, WD/WN, Anxious, Mild Distress, Other (Not very happy about having to come to the hospital.) Eye Exam: Bilateral Eye: PERRL, Other (Bilateral mild conjunctival pallor.) Throat/Mouth: Normal Inspection, Normal Lips, Normal Oropharynx Head: Atraumatic, Normocephalic Neck: Normal Inspection, Supple, Non-Tender, Full Range of Motion. No: Carotid Bruit, Lymphadenopathy (L), Lymphadenopathy (R) Respiratory/Chest: No Respiratory Distress, Normal Breath Sounds, Decreased Breath Sounds (Decreased breath sounds particular to the right base. Query pleural effusion), Other (Respiratory 16 18/m with O2 sats of 100% on room air.) Cardiovascular: Regular Rate, Rhythm (Pulses in her lower extremities are completely obscured due to edema of the feet.), No JVD, No Rub, Systolic Murmur (Grade 1/6.). No: Normal Peripheral Pulses, No Gallop Peripheral Pulses: 0: Posterior Tibial (L), Posterior Tibial (R), Dorsalis Pedis (L), Dorsalis Pedis (R) GI/Abdominal: Normal Bowel Sounds, Soft, Non-Tender, No Organomegaly, Pelvis Stable, Other (She has surgical scars to indicate an open cholecystectomy. She' s had a previous appendectomy she's had previous total bili hysterectomy and BSO and now recently has had laparoscopic-assisted right hemicolectomy because of cancer of the colon with primary anastomosis.) Back Exam: Decreased Range of Motion, Other (Mild kyphosis thoracic spine.). No : CVA Tenderness (L) (Stiffness in her lower back), CVA Tenderness (R) Extremities: Pedal Edema Neurological: Alert (4+ pitting edema to the knees bilaterally. No skin breakdown or leakage of serous fluid at this time), Oriented, CN II-XII Intact, Normal Cognition Psychiatric: Other Skin Exam: Warm (Somewhat angry about having to be here.), Dry, Intact, No Rash , Pallor EKG INTERPRETATION EKG Date: 02/12/19 Time: 14:53 Rhythm: Other Rate (Beats/Min): 65 P-Wave: Absent QRS: Other (Decreased voltage precordial leads.) EKG Interpretation Comments: No further analysis attempted due to paced rhythm. Course - Vital Signs Last Recorded V/S: Last Vital Signs Temp 35.9 C 02/12/19 14:35 Pulse 84 02/12/19 14:35 Resp 16 02/12/19 14:35 BP 128/51 L 02/12/19 14:35 Pulse Ox 100 02/12/19 14:35 - Orders/Labs/Meds Orders: Active Orders 24 hr Category Date Time Status EKG Documentation Completion [RC] STAT Care 02/12/19 14:49 Active Peripheral IV Care [RC] . DIRECTED Care 02/12/19 16:03 Active PACKED CELLS [RED BLOOD CELLS LP] [BBK] Stat Lab 02/12/19 15:18 Results TYPE AND SCREEN [BBK] Stat Lab 02/12/19 15:18 Results Sodium Chloride 0.9% [Normal Saline] 250 ml Med 02/12/19 16:30 Active IV ASDIRECTED Sodium Chloride 0.9% [Saline Flush] Med 02/12/19 16:02 Active 10 ml FLUSH ASDIRECTED PRN Peripheral IV Insertion Adult [OM.PC] Stat Oth 02/12/19 16:03 Ordered Medication Orders Sodium Chloride (Normal Saline) 250 mls @ 75 mls/hr IV ASDIRECTED LISA Last Admin: 02/12/19 16:32 Dose: 75 mls/hr Sodium Chloride (Saline Flush) 10 ml FLUSH ASDIRECTED PRN PRN Reason: Keep Vein Open Last Admin: 02/12/19 16:32 Dose: 10 ml Labs: Laboratory Tests 02/12/19 02/12/19 02/12/19 Range/Units 15:18 15:18 15:18 WBC 5.22 (3.98-10.04) K/mm3 RBC 3.05 L (3.98-5.22) M/mm3 Hgb 6.6 L* D (11.2-15.7) gm/L Hct 22.1 L (34.1-44.9) % MCV 72.5 L D (79.4-94.8) fl MCH 21.6 L (25.6-32.2) pg MCHC 29.9 L (32.2-35.5) g/dl RDW Std Deviation 42.8 (36.4-46.3) fL Plt Count 259 D (182-369) K/mm3 MPV 9.1 L (9.4-12.3) fl Neut % (Auto) 68.7 (34.0-71.1) % Lymph % (Auto) 14.4 L (19.3-51.7) % Lane % (Auto) 14.2 H (4.7-12.5) % Eos % (Auto) 2.1 (0.7-5.8) Baso % (Auto) 0.2 (0.1-1.2) % Neut # (Auto) 3.59 (1.56-6.13) K/mm3 Lymph # (Auto) 0.75 L (1.18-3.74) K/mm3 Lane # (Auto) 0.74 H (0.24-0.36) K/mm3 Eos # (Auto) 0.11 (0.04-0.36) K/mm3 Baso # (Auto) 0.01 (0.01-0.08) K/mm3 Manual Slide Review Abnormal smear Percent Retic (0.50-1.70) % PT (9.7-12.0) SECONDS INR APTT (22-31) SECONDS Sodium 133 L (136-145) mEq/L Potassium 4.0 (3.5-5.1) mEq/L Chloride 97 L (98-107) mEq/L Carbon Dioxide 27 (21-32) mEq/L Anion Gap 13.0 (5-15) BUN 15 (7-18) mg/dL Creatinine 0.9 (0.55-1.02) mg/dL Est Cr Clr Drug Dosing 43.56 mL/min Estimated GFR (MDRD) 60 (>60) mL/min BUN/Creatinine Ratio 16.7 (14-18) Glucose 113 (83-115) mg/dL Calcium 9.2 (8.5-10.1) mg/dL Magnesium 1.9 (1.8-2.4) mg/dl Iron (50-170) ug/dL TIBC (100-400) ug/dL % Saturation (20-55) % Transferrin (202-364) mg/dL Total Bilirubin 0.9 (0.2-1.0) mg/dL AST 26 (15-37) U/L ALT 25 (14-59) U/L Alkaline Phosphatase 143 H (46-116) U/L NT-Pro-B Natriuret Pep (0-450) pg/mL Total Protein 6.8 (6.4-8.2) g/dl Albumin 3.2 L (3.4-5.0) g/dl Globulin 3.6 gm/dL Albumin/Globulin Ratio 0.9 L (1-2) Blood Type O POSITIVE Gel Antibody Screen Negative Crossmatch See Detail 02/12/19 02/12/19 02/12/19 Range/Units 15:18 15:18 15:18 WBC (3.98-10.04) K/mm3 RBC (3.98-5.22) M/mm3 Hgb (11.2-15.7) gm/L Hct (34.1-44.9) % MCV (79.4-94.8) fl MCH (25.6-32.2) pg MCHC (32.2-35.5) g/dl RDW Std Deviation (36.4-46.3) fL Plt Count (182-369) K/mm3 MPV (9.4-12.3) fl Neut % (Auto) (34.0-71.1) % Lymph % (Auto) (19.3-51.7) % Lane % (Auto) (4.7-12.5) % Eos % (Auto) (0.7-5.8) Baso % (Auto) (0.1-1.2) % Neut # (Auto) (1.56-6.13) K/mm3 Lymph # (Auto) (1.18-3.74) K/mm3 Lane # (Auto) (0.24-0.36) K/mm3 Eos # (Auto) (0.04-0.36) K/mm3 Baso # (Auto) (0.01-0.08) K/mm3 Manual Slide Review Percent Retic 1.67 (0.50-1.70) % PT 14.3 H (9.7-12.0) SECONDS INR 1.33 APTT 27 (22-31) SECONDS Sodium (136-145) mEq/L Potassium (3.5-5.1) mEq/L Chloride (98-107) mEq/L Carbon Dioxide (21-32) mEq/L Anion Gap (5-15) BUN (7-18) mg/dL Creatinine (0.55-1.02) mg/dL Est Cr Clr Drug Dosing mL/min Estimated GFR (MDRD) (>60) mL/min BUN/Creatinine Ratio (14-18) Glucose (83-115) mg/dL Calcium (8.5-10.1) mg/dL Magnesium (1.8-2.4) mg/dl Iron (50-170) ug/dL TIBC (100-400) ug/dL % Saturation (20-55) % Transferrin (202-364) mg/dL Total Bilirubin (0.2-1.0) mg/dL AST (15-37) U/L ALT (14-59) U/L Alkaline Phosphatase (46-116) U/L NT-Pro-B Natriuret Pep 1430 H (0-450) pg/mL Total Protein (6.4-8.2) g/dl Albumin (3.4-5.0) g/dl Globulin gm/dL Albumin/Globulin Ratio (1-2) Blood Type Gel Antibody Screen Crossmatch 02/12/19 Range/Units 15:18 WBC (3.98-10.04) K/mm3 RBC (3.98-5.22) M/mm3 Hgb (11.2-15.7) gm/L Hct (34.1-44.9) % MCV (79.4-94.8) fl MCH (25.6-32.2) pg MCHC (32.2-35.5) g/dl RDW Std Deviation (36.4-46.3) fL Plt Count (182-369) K/mm3 MPV (9.4-12.3) fl Neut % (Auto) (34.0-71.1) % Lymph % (Auto) (19.3-51.7) % Lane % (Auto) (4.7-12.5) % Eos % (Auto) (0.7-5.8) Baso % (Auto) (0.1-1.2) % Neut # (Auto) (1.56-6.13) K/mm3 Lymph # (Auto) (1.18-3.74) K/mm3 Lane # (Auto) (0.24-0.36) K/mm3 Eos # (Auto) (0.04-0.36) K/mm3 Baso # (Auto) (0.01-0.08) K/mm3 Manual Slide Review Percent Retic (0.50-1.70) % PT (9.7-12.0) SECONDS INR APTT (22-31) SECONDS Sodium (136-145) mEq/L Potassium (3.5-5.1) mEq/L Chloride (98-107) mEq/L Carbon Dioxide (21-32) mEq/L Anion Gap (5-15) BUN (7-18) mg/dL Creatinine (0.55-1.02) mg/dL Est Cr Clr Drug Dosing mL/min Estimated GFR (MDRD) (>60) mL/min BUN/Creatinine Ratio (14-18) Glucose (83-115) mg/dL Calcium (8.5-10.1) mg/dL Magnesium (1.8-2.4) mg/dl Iron 9 L (50-170) ug/dL TIBC 458 H (100-400) ug/dL % Saturation 2 L (20-55) % Transferrin 366 H (202-364) mg/dL Total Bilirubin (0.2-1.0) mg/dL AST (15-37) U/L ALT (14-59) U/L Alkaline Phosphatase (46-116) U/L NT-Pro-B Natriuret Pep (0-450) pg/mL Total Protein (6.4-8.2) g/dl Albumin (3.4-5.0) g/dl Globulin gm/dL Albumin/Globulin Ratio (1-2) Blood Type Gel Antibody Screen Crossmatch Meds: Medications Generic Name Dose Route Start Last Admin Trade Name Freq PRN Reason Stop Dose Admin Sodium Chloride 250 mls @ 75 mls/hr 02/12/19 16:30 02/12/19 16:32 Normal Saline IV 75 mls/hr ASDIRECTED LISA Administration Sodium Chloride 10 ml 02/12/19 16:02 02/12/19 16:32 Saline Flush FLUSH 10 ml ASDIRECTED PRN Administration Keep Vein Open Discontinued Medications Generic Name Dose Route Start Last Admin Trade Name Freq PRN Reason Stop Dose Admin Furosemide 40 mg 02/12/19 16:03 02/12/19 16:32 Lasix IVPUSH 02/12/19 16:04 40 mg NOW ONE Administration - Radiology Interpretation Free Text/Narrative:: 83-year-old female sent to the ED for evaluation of a hemoglobin of 6.7 reported through the walk-in clinic at [facility] today. Her hemoglobin apparently has been dropping continuously since having right hemicolectomy performed on January 20 at [facility] in [place]. She was discharged on the 12th of this month. She required 2 units of blood she believes while in hospital after surgery. She required 1 unit of blood a week prior to the surgery. She is on Xarelto 20 mg daily and apparently has been taken off for a period of time and then placed back on etc. No blood work has accompanied the patient. On my examination however she is showing evidence of significant congestive failure query whether she has a right-sided pleural effusion. She has dependent edema to her knees bilaterally. Therefore her fluid status is concerning with she requires 3 units of packed cells to achieve a hemoglobin greater than 9. She'll be crossmatched for 3 units of packed RBCs. I will have routine labs performed including serum magnesium ,BNP and coags. Of course renal function needs to be checked as well. - Re-Assessments/Exams Free Text/Narrative Re-Assessment/Exam: 02/12/19 15:39 Initial hematology is back. Total white count is 5.22 with automated differential showing 60.7% neutrophils. Hemoglobin is very low at 6.6 with hematocrit of 22.1. MCV is low at 72.5 suggesting iron deficiency anemia. Platelet count is 259,000. Percent reticulocyte count is 1.67--this is within the normal range. 02/12/19 15:46 chest x-ray reveals cardiomegaly and a pacemaker left upper anterior chest. Other findings are believed to be incidental. Lungs for the most part are clear. Slight scoliosis is noted within the spine with diffuse degenerative change seen within the spine. Source seen within the right axillary region. Pleural effusion identified 02/12/19 16:02 Labs reveal a total white count of 5.22 with auto differential showing 68.7% neutrophils. Hemoglobin is low at 6.6 with hematocrit of 22.1. MCV is low at 72.5 suggesting iron deficiency. Platelet count is 259,000. Percent reticulocyte count is 1.67 within normal limits. The slide shows 2+ and ice was cytosis. 2+ microcytosis and 3+ hypochromasia. 1+ polychromasia. Sodium slightly low at 133. Potassium 4.0. Toward 97 with a bicarbonate 27. Anion gap is 13.0 BUN is 15 with a creatinine of 0.9. GFR is greater than 60. Glucose is 113 with a calcium of 9.2. Magnesium 1.9. Liver function normal. Alk phosphatase slightly elevated 143. BNP is elevated at 1430. Total protein 6.8 with an albumin fraction of 3.2. Case will be discussed with Dr. Flynn production miner hospitalist with a view to admission to the hospital for observation so that she can receive 3 packs of red blood cells and Lasix in between to keep her from going into significant heart failure. Patient will be given a dose of Lasix 40 mg IV now since she did not take her morning dose morning 02/12/19 16:51 consent has been signed for blood. She will require 3 units of packed cells. I have spoken with Dr. Flynn production miner hospitalist and he has agreed to admit her to the med surgery floor on telemetry. She will need Lasix 40 mg after the second unit and I would suggest 20 mg after the third unit as well. 02/12/19 16:56 patients is indeed significantly iron deficiency and perhaps would benefit from Venifer while she is in hospital. Departure - Departure Time of Disposition: 16:57 Disposition: Refer to Observation Condition: Fair Clinical Impression: Dependent edema Anemia Qualifiers: Anemia type: iron deficiency Iron deficiency anemia type: chronic blood loss Qualified Code(s): D50.0 - Iron deficiency anemia secondary to blood loss ( chronic) CHF (congestive heart failure), NYHA class II Qualifiers: Congestive heart failure type: diastolic Congestive heart failure chronicity: acute on chronic Qualified Code(s): I50.33 - Acute on chronic diastolic ( congestive) heart failure Instructions: Blood Transfusion, Adult, [id number] Referrals: Maggie Xavier MD [Primary Care Provider] - Forms: ED Department Discharge - My Orders Last 24 Hours: My Active Orders 02/12/19 14:49 EKG Documentation Completion [RC] STAT 02/12/19 15:18 PACKED CELLS [RED BLOOD CELLS LP] [BBK] Stat TYPE AND SCREEN [BBK] Stat 02/12/19 16:02 Sodium Chloride 0.9% [Saline Flush] 10 ml FLUSH ASDIRECTED PRN 02/12/19 16:03 Peripheral IV Care [RC] . DIRECTED Peripheral IV Insertion Adult [OM.PC] Stat 02/12/19 16:30 Sodium Chloride 0.9% [Normal Saline] 250 ml IV ASDIRECTED - Assessment/Plan Last 24 Hours: My Active Orders 02/12/19 14:49 EKG Documentation Completion [RC] STAT 02/12/19 15:18 PACKED CELLS [RED BLOOD CELLS LP] [BBK] Stat TYPE AND SCREEN [BBK] Stat 02/12/19 16:02 Sodium Chloride 0.9% [Saline Flush] 10 ml FLUSH ASDIRECTED PRN 02/12/19 16:03 Peripheral IV Care [RC] . DIRECTED Peripheral IV Insertion Adult [OM.PC] Stat 02/12/19 16:30 Sodium Chloride 0.9% [Normal Saline] 250 ml IV ASDIRECTED
--- NOTE | 2019-02-12 15:40 | CR ---
Chest: Portable view of the chest was obtained. Comparison: Previous chest x-ray of 08/31/16. Heart is enlarged. Unichamber pacemaker is noted. Lungs are clear. Slight scoliosis is noted within the spine with diffuse degenerative change also seen within the spine. Surgical clips are seen within the right axillary region. Impression: 1. Cardiomegaly and pacemaker. 2. Other findings believed to be incidental. 3. Nothing acute is appreciated on portable chest x-ray. Diagnostic code #2
[2019-02-12] MEDS ORDERED: Sodium Chloride 0.9% 10 ML Syringe FLUSH PRN (16:02)
[2019-02-12] MEDS ORDERED: Furosemide 40 MG/4 ML VIAL IVPUSH ONE (16:03)
[2019-02-12] MEDS ORDERED: Sodium Chloride 0.9% 250 ML IV SCH (16:30)
[2019-02-12] MEDS ORDERED: Acetaminophen 325 MG Tab PO PRN (19:03)
[2019-02-12] MEDS ORDERED: ALPRAZOLAM 0.25 MG PO PRN (19:04)
[2019-02-12] MEDS ORDERED: REFRESH OPTIVE EYE OP PRN (19:04)
--- NOTE | 2019-02-12 19:19 | PCM.HP.2 ---
H&P History of Present Illness - General Date of Service: 02/12/19 Admit Problem/Dx: Admission Diagnosis/Problem Admission Diagnosis/Problem Anemia Source of Information: Patient, Provider - History of Present Illness Initial Comments - Free Text/Narative: 83-year-old female post right hemicolectomy performed on January 20 at [facility] in [place] presented to the emergency room after being seen at the [facility] with a hemoglobin of 6.7. It appears patient has had a slowly dropping hemoglobin since discharge. I do not have prior blood counts available to me at this time. Per her and her records from the ER she did receive 2 units of blood ball in the hospital and one unit of blood week prior to surgery. It appears she had the hemicolectomy secondary to a mass. In the emergency room she was found to have a hemoglobin of 6.6 and a BNP of 1900. Patient has a history of atrial fibrillation with a pacemaker and congestive heart failure. Iron level was low at 9 and her percent saturation was 2%. She was given 40 mg of IV Lasix in the emergency room and started on her first unit of packed red blood cells. 3 units are ordered. Patient states that she is feeling well. She presented to [place] [facility] today with some shortness of breath and fatigue. She denies any hematemesis, melena, or hematochezia. She is on Xarelto for her atrial fibrillation. She complains of some dyspnea on exertion. Right now at rest she denies any symptoms. In the emergency room she was also found to have significant lower extremity pitting edema. Chest x-ray showed cardiomegaly with a pacemaker otherwise incidental findings. - Related Data Allergies/Adverse Reactions: Allergies Allergy/AdvReac Type Severity Reaction Status Date / Time ampicillin Allergy Cannot Verified 02/12/19 16:54 Remember clarithromycin [From Biaxin] Allergy Cannot Verified 02/12/19 16:54 Remember glucosamine Allergy Anaphylactic Verified 02/12/19 16:54 Shock hydrocodone Allergy Cannot Verified 02/12/19 16:54 Remember propoxyphene HCl Allergy Cannot Verified 02/12/19 16:54 [From Darvon] Remember amoxicillin [Amoxicillin] AdvReac Other Verified 02/12/19 16:54 aspirin AdvReac Cannot Verified 02/12/19 16:54 Remember clindamycin AdvReac Cannot Verified 02/12/19 16:54 Remember ibuprofen AdvReac Other Verified 02/12/19 16:54 olmesartan medoxomil AdvReac Other Verified 02/12/19 16:54 [From Benicar] Penicillins AdvReac Nausea and Verified 02/12/19 16:54 Vomiting sucralfate [From Carafate] AdvReac Other Verified 02/12/19 16:54 tramadol AdvReac Cannot Verified 02/12/19 16:54 Remember warfarin [Warfarin] AdvReac Other Verified 02/12/19 16:54 Home Medications: Home Meds Acetaminophen [Tylenol] 650 mg PO QID PRN 04/09/14 [History] L Acidophil/B Lactis/B Longum [Florajen3] 460 mg PO DAILY 04/09/14 [History] Losartan/Hydrochlorothiazide [Losartan-HCTZ 50-12.5 MG] 50 mg PO DAILY 04/09/14 [History] Omeprazole 20 mg PO BID 04/09/14 [History] Rivaroxaban [Xarelto] 20 mg PO DAILY 04/09/14 [History] Sodium Chloride [Rita-128] 1 drop EYEBOTH TID 04/09/14 [History] ALPRAZolam [Alprazolam] 0.25 mg PO BEDTIME PRN 08/30/16 [History] Carboxymethylcellulos/Glycerin [Refresh Optive Gel Eye Drops] 10 ml OP Q4HR PRN 02/12/19 [History] Furosemide [Lasix] 20 mg PO DAILY 02/12/19 [History] Lutein/Minerals/Vit A,C & E [Ocuvite] 1 tab PO DAILY 02/12/19 [History] Metoprolol Succinate [Toprol XL] 25 mg PO DAILY 02/12/19 [History] Multivitamin [Multivitamins] 1 each PO DAILY 02/12/19 [History] Nystatin [Nystatin Oral Syringe] 6 ml PO QID 02/12/19 [History] Past Medical History HEENT History: Reports: Cataract Cardiovascular History: Reports: Afib, Angina, CAD, High Cholesterol, Hypertension Gastrointestinal History: Reports: GERD, PUD Genitourinary History: Reports: Other (See Below) Other Genitourinary History: Kidney tumor taken out 5 years ago - CT scan done every 5 years [employer] History: Reports: Other OB/BYN History: Hysterectomy, 2 vaginal births Musculoskeletal History: Reports: Arthritis Psychiatric History: Reports: Anxiety Hematologic History: Reports: Anemia, Iron Deficiency Oncologic (Cancer) History: Reports: Colon, Other (See Below) Other Oncologic History: colon cancer removed january 20 2019 - Infectious Disease History Infectious Disease History: Reports: Chicken Pox - Past Surgical History HEENT Surgical History: Reports: Cataract Surgery Cardiovascular Surgical History: Reports: None GI Surgical History: Reports: Appendectomy, Cholecystectomy, Colonoscopy Musculoskeletal Surgical History: Reports: Knee Replacement Oncologic Surgical History: Reports: Biopsy of Breast Social & Family History - Family History Family Medical History: Noncontributory - Tobacco Use Smoking Status *Q: Never Smoker Second Hand Smoke Exposure: No - Caffeine Use Caffeine Use: Reports: None - Recreational Drug Use Recreational Drug Use: No - Living Situation & Occupation Living situation: Reports: , Alone Occupation: Retired H&P Review of Systems - Review of Systems: Review Of Systems: ROS reveals no pertinent complaints other than HPI. Exam - Exam Exam: See Below - Vital Signs Vital Signs: Last Vital Signs Temp 97.6 F 02/12/19 17:45 Pulse 70 02/12/19 17:45 Resp 14 02/12/19 17:45 BP 126/50 L 02/12/19 17:45 Pulse Ox 95 02/12/19 16:55 Weight: 188 lb 11.2 oz - Exam Quality Assessment: No: Supplemental Oxygen General: Alert, Oriented HEENT: Conjunctiva Clear Neck: Supple, Trachea Midline Lungs: Clear to Auscultation, Normal Respiratory Effort Cardiovascular: Regular Rate, Irregular Rhythm GI/Abdominal Exam: Normal Bowel Sounds, Soft, Non-Tender, No Organomegaly, No Distention, Other (Surgical incisions shows a small area of white fibrous Cap.) Extremities: Pedal Edema (2-3+ up to the knees and mildly tender) Skin: Incision (Small area of nonhealing) Neuro Extensive - Mental Status: Alert, Oriented x3, Normal Mood/Affect, Normal Cognition, Memory Intact Psychiatric: Alert, Normal Affect, Normal Mood - Patient Data Lab Results Last 24 hrs: Laboratory Results - last 24 hr 02/12/19 02/12/19 02/12/19 Range/Units 15:18 15:18 15:18 WBC 5.22 (3.98-10.04) K/mm3 RBC 3.05 L (3.98-5.22) M/mm3 Hgb 6.6 L* D (11.2-15.7) gm/L Hct 22.1 L (34.1-44.9) % MCV 72.5 L D (79.4-94.8) fl MCH 21.6 L (25.6-32.2) pg MCHC 29.9 L (32.2-35.5) g/dl RDW Std Deviation 42.8 (36.4-46.3) fL Plt Count 259 D (182-369) K/mm3 MPV 9.1 L (9.4-12.3) fl Neut % (Auto) 68.7 (34.0-71.1) % Lymph % (Auto) 14.4 L (19.3-51.7) % [place] % (Auto) 14.2 H (4.7-12.5) % Eos % (Auto) 2.1 (0.7-5.8) Baso % (Auto) 0.2 (0.1-1.2) % Neut # (Auto) 3.59 (1.56-6.13) K/mm3 Lymph # (Auto) 0.75 L (1.18-3.74) K/mm3 [place] # (Auto) 0.74 H (0.24-0.36) K/mm3 Eos # (Auto) 0.11 (0.04-0.36) K/mm3 Baso # (Auto) 0.01 (0.01-0.08) K/mm3 Manual Slide Review Abnormal smear Percent Retic (0.50-1.70) % PT (9.7-12.0) SECONDS INR APTT (22-31) SECONDS Sodium 133 L (136-145) mEq/L Potassium 4.0 (3.5-5.1) mEq/L Chloride 97 L (98-107) mEq/L Carbon Dioxide 27 (21-32) mEq/L Anion Gap 13.0 (5-15) BUN 15 (7-18) mg/dL Creatinine 0.9 (0.55-1.02) mg/dL Est Cr Clr Drug Dosing 43.56 mL/min Estimated GFR (MDRD) 60 (>60) mL/min BUN/Creatinine Ratio 16.7 (14-18) Glucose 113 (83-115) mg/dL Calcium 9.2 (8.5-10.1) mg/dL Magnesium 1.9 (1.8-2.4) mg/dl Iron (50-170) ug/dL TIBC (100-400) ug/dL % Saturation (20-55) % Transferrin (202-364) mg/dL Total Bilirubin 0.9 (0.2-1.0) mg/dL AST 26 (15-37) U/L ALT 25 (14-59) U/L Alkaline Phosphatase 143 H (46-116) U/L NT-Pro-B Natriuret Pep (0-450) pg/mL Total Protein 6.8 (6.4-8.2) g/dl Albumin 3.2 L (3.4-5.0) g/dl Globulin 3.6 gm/dL Albumin/Globulin Ratio 0.9 L (1-2) Blood Type O POSITIVE Gel Antibody Screen Negative Crossmatch See Detail 02/12/19 02/12/19 02/12/19 Range/Units 15:18 15:18 15:18 WBC (3.98-10.04) K/mm3 RBC (3.98-5.22) M/mm3 Hgb (11.2-15.7) gm/L Hct (34.1-44.9) % MCV (79.4-94.8) fl MCH (25.6-32.2) pg MCHC (32.2-35.5) g/dl RDW Std Deviation (36.4-46.3) fL Plt Count (182-369) K/mm3 MPV (9.4-12.3) fl Neut % (Auto) (34.0-71.1) % Lymph % (Auto) (19.3-51.7) % [place] % (Auto) (4.7-12.5) % Eos % (Auto) (0.7-5.8) Baso % (Auto) (0.1-1.2) % Neut # (Auto) (1.56-6.13) K/mm3 Lymph # (Auto) (1.18-3.74) K/mm3 [place] # (Auto) (0.24-0.36) K/mm3 Eos # (Auto) (0.04-0.36) K/mm3 Baso # (Auto) (0.01-0.08) K/mm3 Manual Slide Review Percent Retic 1.67 (0.50-1.70) % PT 14.3 H (9.7-12.0) SECONDS INR 1.33 APTT 27 (22-31) SECONDS Sodium (136-145) mEq/L Potassium (3.5-5.1) mEq/L Chloride (98-107) mEq/L Carbon Dioxide (21-32) mEq/L Anion Gap (5-15) BUN (7-18) mg/dL Creatinine (0.55-1.02) mg/dL Est Cr Clr Drug Dosing mL/min Estimated GFR (MDRD) (>60) mL/min BUN/Creatinine Ratio (14-18) Glucose (83-115) mg/dL Calcium (8.5-10.1) mg/dL Magnesium (1.8-2.4) mg/dl Iron (50-170) ug/dL TIBC (100-400) ug/dL % Saturation (20-55) % Transferrin (202-364) mg/dL Total Bilirubin (0.2-1.0) mg/dL AST (15-37) U/L ALT (14-59) U/L Alkaline Phosphatase (46-116) U/L NT-Pro-B Natriuret Pep 1430 H (0-450) pg/mL Total Protein (6.4-8.2) g/dl Albumin (3.4-5.0) g/dl Globulin gm/dL Albumin/Globulin Ratio (1-2) Blood Type Gel Antibody Screen Crossmatch 02/12/19 Range/Units 15:18 WBC (3.98-10.04) K/mm3 RBC (3.98-5.22) M/mm3 Hgb (11.2-15.7) gm/L Hct (34.1-44.9) % MCV (79.4-94.8) fl MCH (25.6-32.2) pg MCHC (32.2-35.5) g/dl RDW Std Deviation (36.4-46.3) fL Plt Count (182-369) K/mm3 MPV (9.4-12.3) fl Neut % (Auto) (34.0-71.1) % Lymph % (Auto) (19.3-51.7) % [place] % (Auto) (4.7-12.5) % Eos % (Auto) (0.7-5.8) Baso % (Auto) (0.1-1.2) % Neut # (Auto) (1.56-6.13) K/mm3 Lymph # (Auto) (1.18-3.74) K/mm3 [place] # (Auto) (0.24-0.36) K/mm3 Eos # (Auto) (0.04-0.36) K/mm3 Baso # (Auto) (0.01-0.08) K/mm3 Manual Slide Review Percent Retic (0.50-1.70) % PT (9.7-12.0) SECONDS INR APTT (22-31) SECONDS Sodium (136-145) mEq/L Potassium (3.5-5.1) mEq/L Chloride (98-107) mEq/L Carbon Dioxide (21-32) mEq/L Anion Gap (5-15) BUN (7-18) mg/dL Creatinine (0.55-1.02) mg/dL Est Cr Clr Drug Dosing mL/min Estimated GFR (MDRD) (>60) mL/min BUN/Creatinine Ratio (14-18) Glucose (83-115) mg/dL Calcium (8.5-10.1) mg/dL Magnesium (1.8-2.4) mg/dl Iron 9 L (50-170) ug/dL TIBC 458 H (100-400) ug/dL % Saturation 2 L (20-55) % Transferrin 366 H (202-364) mg/dL Total Bilirubin (0.2-1.0) mg/dL AST (15-37) U/L ALT (14-59) U/L Alkaline Phosphatase (46-116) U/L NT-Pro-B Natriuret Pep (0-450) pg/mL Total Protein (6.4-8.2) g/dl Albumin (3.4-5.0) g/dl Globulin gm/dL Albumin/Globulin Ratio (1-2) Blood Type Gel Antibody Screen Crossmatch Result Diagrams: 02/12/19 15:18 02/12/19 15:18 EKG INTERPRETATION EKG Date: 02/12/19 Rhythm: A-Fib (Paced rhythm) Problem List Initiated/Reviewed/Updated: Yes Orders Last 24hrs: Active Orders 24 hr Category Date Time Status Admission Status [Patient Status] [ADT] Routine ADT 02/12/19 16:54 Active Oxygen Therapy [RC] PRN Care 02/12/19 19:03 Ordered Up ad Casi [RC] ASDIRECTED Care 02/12/19 19:03 Ordered VTE/DVT Education [RC] PER UNIT ROUTINE Care 02/12/19 19:03 Ordered Vital Signs [RC] ASDIRECTED Care 02/12/19 19:03 Ordered Heart Healthy Diet [DIET] Diet 02/13/19 Breakfast Ordered CBC WITH AUTO DIFF [HEME] AM Lab 02/13/19 05:11 Ordered COMPREHENSIVE METABOLIC PN,CMP [CHEM] AM Lab 02/13/19 05:11 Ordered PACKED CELLS [RED BLOOD CELLS LP] [BBK] Stat Lab 02/12/19 15:18 Results TYPE AND SCREEN [BBK] Stat Lab 02/12/19 15:18 Results ALPRAZolam [Xanax] Med 02/12/19 19:04 Ordered 0.25 mg PO BEDTIME PRN Acetaminophen [Tylenol] Med 02/12/19 19:03 Ordered 650 mg PO Q4H PRN Carboxymethylcellulos/Glycerin [Refresh Optive Gel Eye Med 02/12/19 19:04 Ordered Drops] 10 ml OP Q4HR PRN Furosemide [Lasix] Med 02/12/19 23:00 Once 20 mg IVPUSH ONETIME ONE Furosemide [Lasix] Med 02/13/19 09:00 Ordered 40 mg PO DAILY Hydrochlorothiazide/Losartan Med 02/13/19 09:00 Ordered 50 mg PO DAILY L Acidophil/B Lactis/B Longum [Florajen3] Med 02/13/19 09:00 Ordered 460 mg PO DAILY Lutein/Minerals/Vit A,C & E Med 02/13/19 09:00 Ordered 1 tab PO DAILY Metoprolol Succinate [Toprol XL] Med 02/13/19 09:00 Ordered 25 mg PO DAILY Pantoprazole [ProTONIX] Med 02/13/19 06:00 Ordered 40 mg PO BIDAC Sodium Chloride 0.9% [Normal Saline] 250 ml Med 02/12/19 16:30 Active IV ASDIRECTED Sodium Chloride 0.9% [Saline Flush] Med 02/12/19 16:02 Active 10 ml FLUSH ASDIRECTED PRN Sodium Chloride 5% Med 02/12/19 21:00 Ordered 1 drop EYEBOTH TID Peripheral IV Insertion Adult [OM.PC] Stat Oth 02/12/19 16:03 Ordered Code Status [Resuscitation Status] Routine Resus Stat 02/12/19 19:02 Ordered Medication Orders Acetaminophen (Tylenol) 650 mg PO Q4H PRN PRN Reason: Pain (Mild 1-3)/fever Alprazolam (Xanax) 0.25 mg PO BEDTIME PRN PRN Reason: Sleep Furosemide (Lasix) 40 mg PO DAILY LISA Furosemide (Lasix) 20 mg IVPUSH ONETIME ONE Stop: 02/12/19 23:01 Sodium Chloride (Normal Saline) 250 mls @ 75 mls/hr IV ASDIRECTED LISA Last Admin: 02/12/19 16:32 Dose: 75 mls/hr Metoprolol Succinate (Toprol Xl) 25 mg PO DAILY LISA Non-Formulary Medication (Carboxymethylcellulos/Glycerin [Refresh Optive Gel Eye Drops]) 10 ml OP Q4HR PRN PRN Reason: Dry Eyes Non-Formulary Medication (Hydrochlorothiazide/Losartan) 50 mg PO DAILY LISA Non-Formulary Medication (L Acidophil/B Lactis/B Longum [Florajen3]) 460 mg PO DAILY LISA Non-Formulary Medication (Lutein/Minerals/Vit A,C & E) 1 tab PO DAILY LISA Non-Formulary Medication (Sodium Chloride 5%) 1 drop EYEBOTH TID LISA Pantoprazole Sodium (Protonix) 40 mg PO BIDAC LISA Sodium Chloride (Saline Flush) 10 ml FLUSH ASDIRECTED PRN PRN Reason: Keep Vein Open Last Admin: 02/12/19 16:32 Dose: 10 ml Assessment/Plan Comment:: Assessment * Iron deficiency anemia likely secondary to blood loss post right hemicolectomy * Atrial fibrillation treated with Xarelto * Congestive heart failure with BNP of 1900 * Nonhealing section of surgical incision * History of hypertension Plan * Patient be given 3 units packed red blood cells in total * Lasix 40 mg given in ER another 40 mg IV push will be given after second unit and then in the morning she'll restart her 20 mg oral tablet. * Recheck CBC, CMP, and BNP in the morning. * Consider giving IV iron in the morning secondary to iron deficiency. * Restart home meds * Wound care management * CODE STATUS: Full code - Mortality Measure Prognosis:: Poor
[2019-02-12] MEDS: SODIUM CHLORIDE 5% EYEBOTH SCH (22:02)
[2019-02-12] MEDS ORDERED: Furosemide 20 MG/2 ML VIAL IVPUSH ONE (23:00)
[2019-02-13] MEDS ORDERED: PANTOPRAZOLE 20 MG PO SCH (06:00)
[2019-02-13] MEDS ORDERED: Sodium Chloride 0.9% 250 ML IV SCH (08:45)
[2019-02-13] MEDS ORDERED: Potassium Chloride 10% 20 MEQ/15 ML Soln 15 ML UD Cup PO ONE ×3 (08:47→15:30)
[2019-02-13] MEDS ORDERED: Furosemide 20 MG Tab ** OWN MED PO SCH (09:00)
[2019-02-13] MEDS ORDERED: [UNRECOGNIZED DRUG - OTHER] PO SCH (09:00)
[2019-02-13] MEDS ORDERED: Saccharomyces Boulardii (Probiotic) 250 MG Cap PO SCH (09:00)
[2019-02-13] MEDS ORDERED: VIT A C PO SCH (09:00)
[2019-02-13] MEDS ORDERED: LUTEIN PO SCH (09:00)
[2019-02-13] MEDS ORDERED: MINERALS PO SCH (09:00)
[2019-02-13] MEDS ORDERED: METOPROLOL SUCCINATE 25 MG PO SCH (09:00)
[2019-02-13] MEDS ORDERED: LOSARTAN PO SCH (09:00)
[2019-02-13] MEDS ORDERED: HCTZ PO SCH (09:00)
[2019-02-13] MEDS: Potassium Chloride 10 MEQ in Premix Bag 1 BAG IV SCH ×2 (09:29→10:52)
[2019-02-13] MEDS: SODIUM CHLORIDE 5% EYEBOTH SCH ×2 (09:35→15:37)
[2019-02-13 14:53] VITALS: BP 134/60
--- NOTE | 2019-02-13 16:18 | PCM.DCSUM1 ---
Discharge Summary - Hospital Course HPI Initial Comments: 83-year-old female post right hemicolectomy performed on January 20 at [facility] in [place] presented to the emergency room after being seen at the [place] [facility] with a hemoglobin of 6.7. It appears patient has had a slowly dropping hemoglobin since discharge. I do not have prior blood counts available to me at this time. Per her and her records from the ER she did receive 2 units of blood ball in the hospital and one unit of blood week prior to surgery. It appears she had the hemicolectomy secondary to a mass. In the emergency room she was found to have a hemoglobin of 6.6 and a BNP of 1900. Patient has a history of atrial fibrillation with a pacemaker and congestive heart failure. Iron level was low at 9 and her percent saturation was 2%. She was given 40 mg of IV Lasix in the emergency room and started on her first unit of packed red blood cells. 3 units are ordered. Patient states that she is feeling well. She presented to [place] [facility] today with some shortness of breath and fatigue. She denies any hematemesis, melena, or hematochezia. She is on Xarelto for her atrial fibrillation. She complains of some dyspnea on exertion. Right now at rest she denies any symptoms. In the emergency room she was also found to have significant lower extremity pitting edema. Chest x-ray showed cardiomegaly with a pacemaker otherwise incidental findings. Diagnosis: Stroke: No - Discharge Data Discharge Date: 02/13/19 Discharge Disposition: Home, Self-Care 01 Condition: Good - Patient Summary/Data Hospital Course: patient was given 3 units of packed red blood cells and iron infusion. During the infusion of the packed red blood cells she was given extra Lasix for fluid retention. Because of this she had a slight drop in her potassium and that too had to be replaced. Patient tolerated all of these things very well without any complication. Chance was stopped and will continue to be stopped at discharge. She will need to discuss with her surgeon, primary care provider, and firearms specialist the risk of restarting Xarelto versus the risk of a stroke. At this time, since she had to receive 3 units of packed red blood cells, the risk of bleeding outweighs the risk of stroke reduction with Xarelto. - Patient Instructions Diet: Usual Diet as Tolerated Driving: Do Not Drive Showering/Bathing: May Shower Other/Special Instructions: Stop Xarelto. Follow up on Friday with PCP and get a blood count and potassium level. - Discharge Plan *PRESCRIPTION DRUG MONITORING PROGRAM REVIEWED*: No *COPY OF PRESCRIPTION DRUG MONITORING REPORT IN PATIENT KATHERIN: No Home Medications: Home Meds Acetaminophen [Tylenol] 650 mg PO QID PRN 04/09/14 [History] L Acidophil/B Lactis/B Longum [Florajen3] 460 mg PO DAILY 04/09/14 [History] Losartan/Hydrochlorothiazide [Losartan-HCTZ 50-12.5 MG] 50 mg PO DAILY 04/09/14 [History] Omeprazole 20 mg PO BID 04/09/14 [History] Sodium Chloride [Rita-128] 1 drop EYEBOTH TID 04/09/14 [History] ALPRAZolam [Alprazolam] 0.25 mg PO BEDTIME PRN 08/30/16 [History] Carboxymethylcellulos/Glycerin [Refresh Optive Gel Eye Drops] 10 ml OP Q4HR PRN 02/12/19 [History] Furosemide [Lasix] 20 mg PO DAILY 02/12/19 [History] Lutein/Minerals/Vit A,C & E [Ocuvite] 1 tab PO DAILY 02/12/19 [History] Metoprolol Succinate [Toprol XL] 25 mg PO DAILY 02/12/19 [History] Multivitamin [Multivitamins] 1 each PO DAILY 02/12/19 [History] Nystatin [Nystatin Oral Syringe] 6 ml PO QID 02/12/19 [History] Oxygen Therapy Mode: Room Air Patient Handouts: Blood Transfusion, Adult, [id number], Hypokalemia, Iron- Rich Diet Forms: ED Department Discharge Referrals: Maggie Solis MD [Primary Care Provider] - (Please schedule a follow up with your primary care provider on February 15. It is recommended that your provider check labs including a hemoglobin, iron, and potassium during your appointment. ) - Discharge Summary/Plan Comment DC Time >30 min.: Yes Discharge Summary/Plan Comment: hold Xarelto Follow-up with primary care provider for labs to include a hemoglobin and potassium on Saturday, February 16, 2019. Follow-up with surgeon and cardiology. - General Info Date of Service: 02/13/19 Admission Dx/Problem (Free Text: Admission Diagnosis/Problem Admission Diagnosis/Problem Anemia Subjective Update: patient is doing well without any complaints of shortness of breath. Lower extremity edema has improved with extra Lasix. Functional Status: Reports: Pain Controlled - Review of Systems General: Reports: No Symptoms HEENT: Reports: No Symptoms Pulmonary: Reports: No Symptoms. Denies: Shortness of Breath Cardiovascular: Reports: No Symptoms Gastrointestinal: Reports: No Symptoms. Denies: Abdominal Pain Musculoskeletal: Reports: No Symptoms Neurological: Reports: No Symptoms - Patient Data Vitals - Most Recent: Last Vital Signs Temp 98.2 F 02/13/19 07:46 Pulse 68 02/13/19 11:26 Resp 14 02/13/19 11:26 BP 134/60 02/13/19 11:26 Pulse Ox 99 02/13/19 11:26 Weight - Most Recent: 183 lb 8 oz I&O - Last 24 hours: Intake & Output 02/13/19 02/13/19 02/13/19 06:59 14:59 22:59 Intake Total 850 300 460 Output Total 3450 Balance -2600 300 460 Lab Results - Last 24 hrs: Laboratory Results - last 24 hr 02/12/19 02/12/19 02/13/19 Range/Units 15:18 15:18 05:46 WBC 6.48 (3.98-10.04) K/mm3 RBC 3.99 (3.98-5.22) M/mm3 Hgb 9.5 L D (11.2-15.7) gm/L Hct 29.7 L (34.1-44.9) % MCV 74.4 L (79.4-94.8) fl MCH 23.8 L (25.6-32.2) pg MCHC 32.0 L (32.2-35.5) g/dl RDW Std Deviation 46.6 H (36.4-46.3) fL Plt Count 213 (182-369) K/mm3 MPV 9.8 (9.4-12.3) fl Neut % (Auto) 72.3 H (34.0-71.1) % Lymph % (Auto) 13.1 L (19.3-51.7) % Sampson % (Auto) 11.6 (4.7-12.5) % Eos % (Auto) 2.5 (0.7-5.8) Baso % (Auto) 0.3 (0.1-1.2) % Neut # (Auto) 4.69 (1.56-6.13) K/mm3 Lymph # (Auto) 0.85 L (1.18-3.74) K/mm3 Sampson # (Auto) 0.75 H (0.24-0.36) K/mm3 Eos # (Auto) 0.16 (0.04-0.36) K/mm3 Baso # (Auto) 0.02 (0.01-0.08) K/mm3 Manual Slide Review Abnormal smear Sodium (136-145) mEq/L Potassium (3.5-5.1) mEq/L Chloride (98-107) mEq/L Carbon Dioxide (21-32) mEq/L Anion Gap (5-15) BUN (7-18) mg/dL Creatinine (0.55-1.02) mg/dL Est Cr Clr Drug Dosing mL/min Estimated GFR (MDRD) (>60) mL/min BUN/Creatinine Ratio (14-18) Glucose (83-115) mg/dL Calcium (8.5-10.1) mg/dL Iron 9 L (50-170) ug/dL TIBC 458 H (100-400) ug/dL % Saturation 2 L (20-55) % Transferrin 366 H (202-364) mg/dL Total Bilirubin (0.2-1.0) mg/dL AST (15-37) U/L ALT (14-59) U/L Alkaline Phosphatase (46-116) U/L NT-Pro-B Natriuret Pep (0-450) pg/mL Total Protein (6.4-8.2) g/dl Albumin (3.4-5.0) g/dl Globulin gm/dL Albumin/Globulin Ratio (1-2) Blood Type O POSITIVE Gel Antibody Screen Negative Crossmatch See Detail 02/13/19 02/13/19 02/13/19 Range/Units 05:46 05:46 15:43 WBC (3.98-10.04) K/mm3 RBC (3.98-5.22) M/mm3 Hgb 10.6 L (11.2-15.7) gm/L Hct 32.9 L (34.1-44.9) % MCV (79.4-94.8) fl MCH (25.6-32.2) pg MCHC (32.2-35.5) g/dl RDW Std Deviation (36.4-46.3) fL Plt Count (182-369) K/mm3 MPV (9.4-12.3) fl Neut % (Auto) (34.0-71.1) % Lymph % (Auto) (19.3-51.7) % Sampson % (Auto) (4.7-12.5) % Eos % (Auto) (0.7-5.8) Baso % (Auto) (0.1-1.2) % Neut # (Auto) (1.56-6.13) K/mm3 Lymph # (Auto) (1.18-3.74) K/mm3 Sampson # (Auto) (0.24-0.36) K/mm3 Eos # (Auto) (0.04-0.36) K/mm3 Baso # (Auto) (0.01-0.08) K/mm3 Manual Slide Review Sodium 134 L (136-145) mEq/L Potassium 3.2 L (3.5-5.1) mEq/L Chloride 96 L (98-107) mEq/L Carbon Dioxide 26 (21-32) mEq/L Anion Gap 15.2 H (5-15) BUN 13 (7-18) mg/dL Creatinine 0.9 (0.55-1.02) mg/dL Est Cr Clr Drug Dosing 43.56 mL/min Estimated GFR (MDRD) 60 (>60) mL/min BUN/Creatinine Ratio 14.4 (14-18) Glucose 122 H (83-115) mg/dL Calcium 8.5 (8.5-10.1) mg/dL Iron (50-170) ug/dL TIBC (100-400) ug/dL % Saturation (20-55) % Transferrin (202-364) mg/dL Total Bilirubin 1.4 H (0.2-1.0) mg/dL AST 27 (15-37) U/L ALT 21 (14-59) U/L Alkaline Phosphatase 135 H (46-116) U/L NT-Pro-B Natriuret Pep 1560 H (0-450) pg/mL Total Protein 6.4 (6.4-8.2) g/dl Albumin 2.9 L (3.4-5.0) g/dl Globulin 3.5 gm/dL Albumin/Globulin Ratio 0.8 L (1-2) Blood Type Gel Antibody Screen Crossmatch 02/13/19 Range/Units 15:43 WBC (3.98-10.04) K/mm3 RBC (3.98-5.22) M/mm3 Hgb (11.2-15.7) gm/L Hct (34.1-44.9) % MCV (79.4-94.8) fl MCH (25.6-32.2) pg MCHC (32.2-35.5) g/dl RDW Std Deviation (36.4-46.3) fL Plt Count (182-369) K/mm3 MPV (9.4-12.3) fl Neut % (Auto) (34.0-71.1) % Lymph % (Auto) (19.3-51.7) % Sampson % (Auto) (4.7-12.5) % Eos % (Auto) (0.7-5.8) Baso % (Auto) (0.1-1.2) % Neut # (Auto) (1.56-6.13) K/mm3 Lymph # (Auto) (1.18-3.74) K/mm3 Sampson # (Auto) (0.24-0.36) K/mm3 Eos # (Auto) (0.04-0.36) K/mm3 Baso # (Auto) (0.01-0.08) K/mm3 Manual Slide Review Sodium (136-145) mEq/L Potassium 3.6 (3.5-5.1) mEq/L Chloride (98-107) mEq/L Carbon Dioxide (21-32) mEq/L Anion Gap (5-15) BUN (7-18) mg/dL Creatinine (0.55-1.02) mg/dL Est Cr Clr Drug Dosing mL/min Estimated GFR (MDRD) (>60) mL/min BUN/Creatinine Ratio (14-18) Glucose (83-115) mg/dL Calcium (8.5-10.1) mg/dL Iron (50-170) ug/dL TIBC (100-400) ug/dL % Saturation (20-55) % Transferrin (202-364) mg/dL Total Bilirubin (0.2-1.0) mg/dL AST (15-37) U/L ALT (14-59) U/L Alkaline Phosphatase (46-116) U/L NT-Pro-B Natriuret Pep (0-450) pg/mL Total Protein (6.4-8.2) g/dl Albumin (3.4-5.0) g/dl Globulin gm/dL Albumin/Globulin Ratio (1-2) Blood Type Gel Antibody Screen Crossmatch Med Orders - Current: Current Medications Acetaminophen (Tylenol) 650 mg PO Q4H PRN PRN Reason: Pain (Mild 1-3)/fever Alprazolam (Xanax) 0.25 mg PO BEDTIME PRN PRN Reason: Sleep Furosemide (Lasix) 40 mg PO DAILY [facility] Last Admin: 02/13/19 09:35 Dose: 40 mg Sodium Chloride (Normal Saline) 250 mls @ 50 mls/hr IV ASDIRECTED [facility] Last Admin: 02/13/19 09:29 Dose: 50 mls/hr Metoprolol Succinate (Toprol Xl) 25 mg PO DAILY [facility] Last Admin: 02/13/19 09:35 Dose: 25 mg Refresh Optive Eye (Drops Own Med) 0 ml OP Q4H PRN PRN Reason: Dry Eyes Losartan/Hctz 50/12. 5mg Tab Own Med * * 0 mg PO DAILY [facility] Last Admin: 02/13/19 09:34 Dose: 1 mg Lutein/Minerals/Vit A,C & E (Ocuvite) Own Med 1 tab PO DAILY [facility] Last Admin: 02/13/19 09:35 Dose: 1 tab Sodium Chloride 5% (Oph Own Med) 0 drop EYEBOTH TID [facility] Last Admin: 02/13/19 15:37 Dose: 1 drop (Omeprazole 20 Mg)* (Pt Own Med*) 20 mg PO BID@0600,1600 [facility] Last Admin: 02/13/19 15:37 Dose: 20 mg Saccharomyces Boulardii (Florastor) 250 mg PO DAILY [facility] Last Admin: 02/13/19 09:29 Dose: 250 mg Sodium Chloride (Saline Flush) 10 ml FLUSH ASDIRECTED PRN PRN Reason: Keep Vein Open Last Admin: 02/12/19 16:32 Dose: 10 ml Discontinued Medications Ferric Sodium Gluconate Complex (Sodium Ferric Gluc Cplx 62.5 Mg/5 Ml) 25 mg IV ONETIME ONE Stop: 02/13/19 11:31 Last Admin: 02/13/19 12:49 Dose: 25 mg Furosemide (Lasix) 40 mg IVPUSH NOW ONE Stop: 02/12/19 16:04 Last Admin: 02/12/19 16:32 Dose: 40 mg Furosemide (Lasix) 20 mg IVPUSH ONETIME ONE Stop: 02/12/19 23:01 Last Admin: 02/12/19 22:03 Dose: 20 mg Sodium Chloride (Normal Saline) 250 mls @ 75 mls/hr IV ASDIRECTED [facility] Last Admin: 02/12/19 16:32 Dose: 75 mls/hr Potassium Chloride 10 meq/ (Premix) 100 mls @ 100 mls/hr IV Q1H [facility] Stop: 02/13/19 10:29 Last Admin: 02/13/19 10:52 Dose: 100 mls/hr Ferric Sodium Gluconate Complex 125 mg/ Sodium Chloride 110 mls @ 110 mls/hr IV ONETIME ONE Stop: 02/13/19 12:59 Last Admin: 02/13/19 13:32 Dose: 110 mls/hr Pantoprazole 20mg Capsule Own Med * * 1 each PO BIDAC [facility] Last Admin: 02/13/19 07:20 Dose: Not Given Potassium Chloride (Potassium Chloride Solution) 20 meq PO ONETIME ONE Stop: 02/13/19 08:48 Last Admin: 02/13/19 09:29 Dose: 20 meq Potassium Chloride (Potassium Chloride Solution) 20 meq PO ONETIME ONE Stop: 02/13/19 13:36 Last Admin: 02/13/19 15:27 Dose: Not Given Potassium Chloride (Potassium Chloride Solution) 20 meq PO ONETIME ONE Stop: 02/13/19 15:31 Last Admin: 02/13/19 15:37 Dose: 20 meq - Exam Quality Assessment: Denies: Supplemental Oxygen General: Reports: Alert, Oriented HEENT: Reports: Pupils Equal, Pupils Reactive Neck: Reports: Supple Lungs: Reports: Clear to Auscultation, Normal Respiratory Effort Cardiovascular: Reports: Regular Rate, Regular Rhythm GI/Abdominal Exam: Normal Bowel Sounds, Soft, Non-Tender, No Organomegaly, No Distention Extremities: Normal Inspection, Normal Range of Motion, Pedal Edema (1+ bilateral lower shoulder AP edema up to her knee.) Skin: Reports: Warm, Dry Neurological: Reports: No New Focal Deficit Psy/Mental Status: Reports: Alert, Normal Affect, Normal Mood
== END 2019-02-13 16:50 | disposition home or self-care (01) ==
LOC: JD.ED 14:23 → JD.MS 16:54 → UNDOADMOB 16:54
PROVIDERS: ADMIT Emergency Medicine; ATTEND Family Medicine
DX: D64.9 Anemia, unspecified (principal); I11.0 Hypertensive heart disease with heart failure; I50.9 Heart failure, unspecified; I48.91 Unspecified atrial fibrillation; I25.10 Atherosclerotic heart disease of native coronary artery without angina pectoris; E78.00 Pure hypercholesterolemia, unspecified; K21.9 Gastro-esophageal reflux disease without esophagitis; M19.90 Unspecified osteoarthritis, unspecified site; F41.9 Anxiety disorder, unspecified; T81.89XA Other complications of procedures, not elsewhere classified, initial encounter; Z95.0 Presence of cardiac pacemaker; Z79.01 Long term (current) use of anticoagulants; Z79.899 Other long term (current) drug therapy; Z88.0 Allergy status to penicillin; Z88.1 Allergy status to other antibiotic agents; Z88.5 Allergy status to narcotic agent; Z88.6 Allergy status to analgesic agent
CPT/HCPCS: 36415; 36430; 71045; 80053; 83540; 83735; 83880; 84132; 84466; 85014; 85018; 85025; 85045; 85610; 85730; 86850; 86900; 86901; 86922; 93005; 96361; 96374; 99285; A9270; J1940; J2916; J3480; J7030; J7050; P9016; 96365; 96366; 96367; 96375; 96376; G0378

== ENCOUNTER 2019-09-22 17:20 | Inpatient (IN) | payer MEDICARE, BC, OTHER ==
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
[2019-09-22] MEDS ORDERED: Sodium Chloride 0.9% 10 ML Syringe FLUSH PRN (17:54)
--- NOTE | 2019-09-22 18:18 | CR ---
Chest: Frontal view of the chest was obtained. Comparison: Previous chest x-ray of 02/12/19. Patient's hand overlies the right lower lung. Lungs otherwise are clear. Heart is enlarged. Slight upper lobe pulmonary vascular redistribution is seen. Surgical clips seen within the right axillary region from prior lymph node dissection. Unichamber pacemaker is noted. Bony structures are grossly intact. Impression: 1. Cardiomegaly with mild upper lobe pulmonary vascular redistribution which is most likely chronic. 2. Increased density within the right lung base most likely representing patient's hand. 3. Cardiomegaly and other findings as noted above. Nothing acute is seen. Diagnostic code #2 Study was dictated in MDT
[2019-09-22] MEDS ORDERED: Acetaminophen 325 MG Tab PO ONE (18:53)
[2019-09-22] MEDS ORDERED: Acetaminophen 325 MG Tab ONE (18:54)
[2019-09-22] MEDS ORDERED: Ondansetron 4 MG/2 ML SDV IVPUSH ONE (19:46)
--- NOTE | 2019-09-22 22:13 | PCM.HP.2 ---
H&P History of Present Illness - General Date of Service: 09/22/19 Admit Problem/Dx: Admission Diagnosis/Problem Admission Diagnosis/Problem Hip fracture requiring operative repair - History of Present Illness Initial Comments - Free Text/Narative: 83-year-old female with atrial fibrillation, coronary artery disease, hypertension, peptic ulcer disease, GERD, anxiety, iron deficiency anemia, colon cancer in January 2019 with resection who was taking a shortcut through her yard when the wind caught her and she fell onto her left side. Patient landed on her left hip and elbow. Neighbors help dragged her into the house and EMS was called. Patient denies any head trauma or loss of consciousness. Patient takes a baby aspirin but is not anticoagulated for her A. fib. X-ray in the emergency room found a left femoral neck fracture. Dr. Vick, orthopedist , plans on her needing surgical repair. And states that she has a history of gastric ulcers and cannot tolerate or take Xarelto. She has a large amount of medications that were either not tolerated or she had an allergy to. Warfarin is among those. Left Hip Pain Score (Numeric/FACES): 2 - Related Data Allergies/Adverse Reactions: Allergies Allergy/AdvReac Type Severity Reaction Status Date / Time ampicillin Allergy Cannot Verified 09/22/19 19:55 Remember ciprofloxacin Allergy Dizziness Verified 09/22/19 19:39 clarithromycin [From Biaxin] Allergy Cannot Verified 02/12/19 16:54 Remember clavulanic acid Allergy Rash Verified 09/22/19 19:41 [From Augmentin] glucosamine Allergy Anaphylactic Verified 09/22/19 19:53 Shock hydrocodone Allergy Cannot Verified 09/22/19 19:55 Remember levofloxacin Allergy Nausea and Verified 09/22/19 19:42 Vomiting metronidazole Allergy Drowsiness Verified 09/22/19 19:42 olmesartan [From Benicar] Allergy Cannot Verified 09/22/19 19:52 Remember propoxyphene HCl Allergy Cannot Verified 09/22/19 20:51 [From Darvon] Remember amoxicillin [Amoxicillin] AdvReac Other Verified 09/22/19 19:33 aspirin AdvReac Cannot Verified 09/22/19 19:33 Remember clindamycin AdvReac Cannot Verified 09/22/19 19:40 Remember ibuprofen AdvReac Other Verified 09/22/19 19:40 olmesartan medoxomil AdvReac Other Verified 09/22/19 19:54 [From Benicar] Penicillins AdvReac Nausea and Verified 09/22/19 19:54 Vomiting sucralfate [From Carafate] AdvReac Other Verified 09/22/19 19:38 tramadol AdvReac Cannot Verified 09/22/19 19:32 Remember warfarin [Warfarin] AdvReac Other Verified 09/22/19 19:33 Home Medications: Home Meds Acetaminophen [Tylenol] 650 mg PO QID PRN 04/09/14 [History] L Acidophil/B Lactis/B Longum [Florajen3] 460 mg PO DAILY 04/09/14 [History] Losartan/Hydrochlorothiazide [Losartan-HCTZ 50-12.5 MG] 50 mg PO DAILY 04/09/14 [History] Omeprazole 20 mg PO DAILY 04/09/14 [History] Sodium Chloride [Rita-128] 1 drop EYEBOTH TID 04/09/14 [History] ALPRAZolam [Alprazolam] 0.25 mg PO BEDTIME PRN 08/30/16 [History] Carboxymethylcellulos/Glycerin [Refresh Optive Gel Eye Drops] 1 drop OP Q4HR PRN 02/12/19 [History] Furosemide [Lasix] 20 mg PO DAILY 02/12/19 [History] Lutein/Minerals/Vit A,C & E [Ocuvite] 1 tab PO DAILY 02/12/19 [History] Metoprolol Succinate [Toprol XL] 25 mg PO DAILY 02/12/19 [History] Multivitamin [Multivitamins] 1 each PO DAILY 02/12/19 [History] Past Medical History HEENT History: Reports: Cataract Cardiovascular History: Reports: Afib, Angina, CAD, High Cholesterol, Hypertension Gastrointestinal History: Reports: GERD, PUD Genitourinary History: Reports: Other (See Below) Other Genitourinary History: Kidney tumor taken out 5 years ago - CT scan done every 5 years 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: Other OB/BYN History: Hysterectomy, 2 vaginal births Musculoskeletal History: Reports: Arthritis Psychiatric History: Reports: Anxiety Hematologic History: Reports: Anemia, Iron Deficiency Oncologic (Cancer) History: Reports: Colon, Other (See Below) Other Oncologic History: colon cancer removed january 20 2019 - Infectious Disease History Infectious Disease History: Reports: Chicken Pox - Past Surgical History HEENT Surgical History: Reports: Cataract Surgery Cardiovascular Surgical History: Reports: None GI Surgical History: Reports: Appendectomy, Cholecystectomy, Colonoscopy Musculoskeletal Surgical History: Reports: Knee Replacement Oncologic Surgical History: Reports: Biopsy of Breast Social & Family History - Family History Family Medical History: Noncontributory - Tobacco Use Smoking Status *Q: Never Smoker - Caffeine Use Caffeine Use: Reports: Coffee - Living Situation & Occupation Living situation: Reports: , Alone Occupation: Retired H&P Review of Systems - Review of Systems: Review Of Systems: Comprehensive ROS is negative, except as noted in HPI. Exam - Exam Exam: See Below - Vital Signs Vital Signs: Last Vital Signs Temp 97.7 F 09/22/19 17:24 Pulse 78 09/22/19 17:24 Resp 18 09/22/19 17:24 BP 139/61 09/22/19 17:24 Pulse Ox 96 09/22/19 17:24 Weight: 175 lb - Exam Quality Assessment: No: Supplemental Oxygen General: Alert, Oriented, 4 HEENT: Conjunctiva Clear, Hearing Intact, Mucosa Moist & [place] Neck: Supple, Trachea Midline, 2 Lungs: Clear to Auscultation, Normal Respiratory Effort Cardiovascular: Regular Rate, Regular Rhythm GI/Abdominal Exam: Normal Bowel Sounds, Soft, Non-Tender, No Organomegaly, No Distention, No Abnormal Bruit, No Mass, Pelvis Stable Extremities: No Pedal Edema, Normal Capillary Refill, Leg Pain Peripheral Pulses: 1+: Posterior Tibial (L), Posterior Tibial (R), Dorsalis Pedis (L), Dorsalis Pedis (R) Skin: Warm, Dry, Intact Neuro Extensive - Mental Status: Alert, Oriented x3, Normal Mood/Affect, Normal Cognition Neuro Extensive - Motor, Sensory, Reflexes: CN II-XII Intact Psychiatric: Alert, Normal Affect, Normal Mood - Patient Data Lab Results Last 24 hrs: Laboratory Results - last 24 hr 09/22/19 09/22/19 09/22/19 Range/Units 18:20 18:20 18:20 WBC 7.65 (3.98-10.04) K/mm3 RBC 4.51 (3.98-5.22) M/mm3 Hgb 13.7 D (11.2-15.7) gm/dl Hct 39.4 (34.1-44.9) % MCV 87.4 D (79.4-94.8) fl MCH 30.4 (25.6-32.2) pg MCHC 34.8 (32.2-35.5) g/dl RDW Std Deviation 46.3 (36.4-46.3) fL Plt Count 124 L D (182-369) K/mm3 MPV 9.3 L (9.4-12.3) fl Neut % (Auto) 82.6 H (34.0-71.1) % Lymph % (Auto) 8.6 L (19.3-51.7) % [place] % (Auto) 6.8 (4.7-12.5) % Eos % (Auto) 1.6 (0.7-5.8) Baso % (Auto) 0.1 (0.1-1.2) % Neut # (Auto) 6.32 H (1.56-6.13) K/mm3 Lymph # (Auto) 0.66 L (1.18-3.74) K/mm3 [place] # (Auto) 0.52 H (0.24-0.36) K/mm3 Eos # (Auto) 0.12 (0.04-0.36) K/mm3 Baso # (Auto) 0.01 (0.01-0.08) K/mm3 Manual Slide Review Normal smear PT 12.2 H (9.7-12.0) SECONDS INR 1.13 Sodium 129 L (136-145) mEq/L Potassium 3.9 (3.5-5.1) mEq/L Chloride 93 L (98-107) mEq/L Carbon Dioxide 27 (21-32) mEq/L Anion Gap 12.9 (5-15) BUN 17 (7-18) mg/dL Creatinine 1.0 (0.55-1.02) mg/dL Est Cr Clr Drug Dosing 39.20 mL/min Estimated GFR (MDRD) 53 (>60) mL/min BUN/Creatinine Ratio 17.0 (14-18) Glucose 132 H (83-115) mg/dL Calcium 9.6 (8.5-10.1) mg/dL Total Bilirubin 0.9 (0.2-1.0) mg/dL AST 31 (15-37) U/L ALT 28 (14-59) U/L Alkaline Phosphatase 133 H (46-116) U/L Total Protein 8.0 (6.4-8.2) g/dl Albumin 4.2 (3.4-5.0) g/dl Globulin 3.8 gm/dL Albumin/Globulin Ratio 1.1 (1-2) Blood Type Gel Antibody Screen 09/22/19 Range/Units 18:20 WBC (3.98-10.04) K/mm3 RBC (3.98-5.22) M/mm3 Hgb (11.2-15.7) gm/dl Hct (34.1-44.9) % MCV (79.4-94.8) fl MCH (25.6-32.2) pg MCHC (32.2-35.5) g/dl RDW Std Deviation (36.4-46.3) fL Plt Count (182-369) K/mm3 MPV (9.4-12.3) fl Neut % (Auto) (34.0-71.1) % Lymph % (Auto) (19.3-51.7) % [place] % (Auto) (4.7-12.5) % Eos % (Auto) (0.7-5.8) Baso % (Auto) (0.1-1.2) % Neut # (Auto) (1.56-6.13) K/mm3 Lymph # (Auto) (1.18-3.74) K/mm3 [place] # (Auto) (0.24-0.36) K/mm3 Eos # (Auto) (0.04-0.36) K/mm3 Baso # (Auto) (0.01-0.08) K/mm3 Manual Slide Review PT (9.7-12.0) SECONDS INR Sodium (136-145) mEq/L Potassium (3.5-5.1) mEq/L Chloride (98-107) mEq/L Carbon Dioxide (21-32) mEq/L Anion Gap (5-15) BUN (7-18) mg/dL Creatinine (0.55-1.02) mg/dL Est Cr Clr Drug Dosing mL/min Estimated GFR (MDRD) (>60) mL/min BUN/Creatinine Ratio (14-18) Glucose (83-115) mg/dL Calcium (8.5-10.1) mg/dL Total Bilirubin (0.2-1.0) mg/dL AST (15-37) U/L ALT (14-59) U/L Alkaline Phosphatase (46-116) U/L Total Protein (6.4-8.2) g/dl Albumin (3.4-5.0) g/dl Globulin gm/dL Albumin/Globulin Ratio (1-2) Blood Type O POSITIVE Gel Antibody Screen Negative Result Diagrams: 09/22/19 18:20 09/22/19 18:20 EKG INTERPRETATION EKG Date: 09/22/19 Rhythm: A-Fib Rate (Beats/Min): 61 EKG Interpretation Comments: Ventricular pacing so no other analysis attempted. Sepsis Event Note - Evaluation Sepsis Screening Result: No Definite Risk - Focused Exam Vital Signs: Vital Signs Temp Pulse Resp BP Pulse Ox 09/22/19 17:24 97.7 F 78 18 139/61 96 Date Exam was Performed: 09/22/19 Time Exam was Performed: 23:58 Problem List Initiated/Reviewed/Updated: Yes Orders Last 24hrs: Active Orders 24 hr Category Date Time Status Patient Status [ADT] Routine ADT 09/22/19 18:15 Active Mcmahon Catheter Insertion [Insert Urinary Catheter] [OM. Care 09/22/19 18:15 Ordered PC] Q24H Peripheral IV Care [RC] . DIRECTED Care 09/22/19 17:55 Active Urinary Catheter Assessment [RC] ASDIRECTED Care 09/22/19 18:14 Active Hip Min 2V or 3V w Pelvis Lt [CR] Stat Exams 09/22/19 17:30 Taken Sodium Chloride 0.9% [Saline Flush] Med 09/22/19 17:54 Active 10 ml FLUSH ASDIRECTED PRN Peripheral IV Insertion Adult [OM.PC] Stat Oth 09/22/19 17:54 Ordered EKG 12 Lead [EK] Stat Ther 09/22/19 17:54 Ordered Medication Orders Sodium Chloride (Saline Flush) 10 ml FLUSH ASDIRECTED PRN PRN Reason: Keep Vein Open Last Admin: 09/22/19 18:56 Dose: 10 ml Assessment/Plan Comment:: Assessment 83-year-old female who fell in her yard sustained a left femoral neck fracture. * Chest x-ray shows cardiomegaly with no acute findings * History of left TKA * 12-lead EKG shows ventricularly paced atrial fibrillation with a rate of 61 * Type and screen * Dr. Vick planning on surgical correction in the next day or 2 * PT/OT postoperatively * Bedrest until postop * Maintenance IV fluids * Incentive spirometry * Case management and medical social worker Hyponatremia * Sodium 129 * NS at 100 mL an hour * Check CMP in the morning * History of mild chronic hyponatremia in the low 130s Chronic atrial fibrillation, ventricularly paced, without anticoagulation * Patient has a history of peptic ulcer disease * She is intolerant of Xarelto and Coumadin * Takes a low-dose baby aspirin * On metoprolol XL 25 mg at night Hypertension * On metoprolol, losartan, hydrochlorothiazide, and Lasix Plan * Admit to medical floor on telemetry * Review home medications * Hold losartan, hydrochlorothiazide, and Lasix in the morning * CMP, CBC, and magnesium in the morning * PT/OT postoperatively * VTE prophylaxis with SCDs * CODE STATUS: DNR/DNI * Length of stay anticipated 3 to 4 days. - Mortality Measure Prognosis:: Poor (Overall prognosis is poor based on comorbidities and age.)
[2019-09-22] MEDS ORDERED: ALPRAZolam 0.25 MG Tab PO PRN (22:15)
[2019-09-22] MEDS ORDERED: Acetaminophen 650 MG Supp RECTAL PRN (22:17)
[2019-09-22] MEDS: Metoprolol Succinate 25 MG Tab.ER PO SCH (22:39)
[2019-09-22] MEDS ORDERED: Sodium Chloride 0.9% 1,000 ML IV SCH (23:45)
[2019-09-23] MEDS ORDERED: Acetaminophen 325 MG Tab PO ONE (01:01)
[2019-09-23] MEDS ORDERED: Morphine 2 MG/ML Syringe IVPUSH ONE (03:59)
[2019-09-23] MEDS ORDERED: Cyclobenzaprine 10 MG Tab PO PRN (07:18)
[2019-09-23] MEDS ORDERED: Naloxone 0.4 MG/ML SDV IVPUSH PRN (07:19)
--- NOTE | 2019-09-23 08:08 | PCM.PREANE ---
Preanesthetic Assessment - Procedure Proposed Procedure: left hip surgery - Anesthesia/Transfusion/Family Hx Anesthesia History: Prior Anesthesia Reaction Type of Anesthesia Reaction: Other (see below) (tummy blows up after surgery ) Family History of Anesthesia Reaction: No Transfusion History: Prior Transfusion Without Reaction Intubation History: Unknown - Review of Systems General: No Symptoms Pulmonary: No Symptoms Cardiovascular: No Symptoms Gastrointestinal: No Symptoms Neurological: No Symptoms Other: Reports: Anxiety - Physical Assessment NPO Status Date: 09/22/19 NPO Status Time: 23:55 Vital Signs: Last Vital Signs Temp 98.1 F 09/23/19 03:56 Pulse 67 09/23/19 03:56 Resp 16 09/23/19 03:56 BP 126/61 09/23/19 03:56 Pulse Ox 95 09/23/19 03:56 Height: 5 ft 8 in Weight: 83.96 kg ASA Class: 3 Mental Status: Alert & Oriented x3 Airway Class: Mallampati = 1 Dentition: Reports: Missing Tooth/Teeth Thyro-Mental Finger Breadths: 3 Mouth Opening Finger Breadths: 3 ROM/Head Extension: Full Lungs: Clear to Auscultation, Normal Respiratory Effort Cardiovascular: Regular Rate, Regular Rhythm, Murmurs - Lab Values: Laboratory Last Values WBC 7.65 K/mm3 (3.98-10.04) 09/22/19 18:20 RBC 4.51 M/mm3 (3.98-5.22) 09/22/19 18:20 Hgb 13.7 gm/dl (11.2-15.7) D 09/22/19 18:20 Hct 39.4 % (34.1-44.9) 09/22/19 18:20 MCV 87.4 fl (79.4-94.8) D 09/22/19 18:20 MCH 30.4 pg (25.6-32.2) 09/22/19 18:20 MCHC 34.8 g/dl (32.2-35.5) 09/22/19 18:20 RDW Std Deviation 46.3 fL (36.4-46.3) 09/22/19 18:20 Plt Count 124 K/mm3 (182-369) L D 09/22/19 18:20 MPV 9.3 fl (9.4-12.3) L 09/22/19 18:20 Neut % (Auto) 82.6 % (34.0-71.1) H 09/22/19 18:20 Lymph % (Auto) 8.6 % (19.3-51.7) L 09/22/19 18:20 [place] % (Auto) 6.8 % (4.7-12.5) 09/22/19 18:20 Eos % (Auto) 1.6 (0.7-5.8) 09/22/19 18:20 Baso % (Auto) 0.1 % (0.1-1.2) 09/22/19 18:20 Neut # (Auto) 6.32 K/mm3 (1.56-6.13) H 09/22/19 18:20 Lymph # (Auto) 0.66 K/mm3 (1.18-3.74) L 09/22/19 18:20 [place] # (Auto) 0.52 K/mm3 (0.24-0.36) H 09/22/19 18:20 Eos # (Auto) 0.12 K/mm3 (0.04-0.36) 09/22/19 18:20 Baso # (Auto) 0.01 K/mm3 (0.01-0.08) 09/22/19 18:20 Manual Slide Review Normal smear 09/22/19 18:20 PT 12.2 SECONDS (9.7-12.0) H 09/22/19 18:20 INR 1.13 09/22/19 18:20 Sodium 129 mEq/L (136-145) L 09/22/19 18:20 Potassium 3.9 mEq/L (3.5-5.1) 09/22/19 18:20 Chloride 93 mEq/L (98-107) L 09/22/19 18:20 Carbon Dioxide 27 mEq/L (21-32) 09/22/19 18:20 Anion Gap 12.9 (5-15) 09/22/19 18:20 BUN 17 mg/dL (7-18) 09/22/19 18:20 Creatinine 1.0 mg/dL (0.55-1.02) 09/22/19 18:20 Est Cr Clr Drug Dosing 39.20 mL/min 09/22/19 18:20 Estimated GFR (MDRD) 53 mL/min (>60) 09/22/19 18:20 BUN/Creatinine Ratio 17.0 (14-18) 09/22/19 18:20 Glucose 132 mg/dL (83-115) H 09/22/19 18:20 Calcium 9.6 mg/dL (8.5-10.1) 09/22/19 18:20 Total Bilirubin 0.9 mg/dL (0.2-1.0) 09/22/19 18:20 AST 31 U/L (15-37) 09/22/19 18:20 ALT 28 U/L (14-59) 09/22/19 18:20 Alkaline Phosphatase 133 U/L (46-116) H 09/22/19 18:20 Total Protein 8.0 g/dl (6.4-8.2) 09/22/19 18:20 Albumin 4.2 g/dl (3.4-5.0) 09/22/19 18:20 Globulin 3.8 gm/dL 09/22/19 18:20 Albumin/Globulin Ratio 1.1 (1-2) 09/22/19 18:20 MRSA (PCR) Negative 09/22/19 23:23 Blood Type O POSITIVE 09/22/19 18:20 Gel Antibody Screen Negative 09/22/19 18:20 - Allergies Allergies/Adverse Reactions: Allergies Allergy/AdvReac Type Severity Reaction Status Date / Time ampicillin Allergy Cannot Verified 09/22/19 19:55 Remember ciprofloxacin Allergy Dizziness Verified 09/22/19 19:39 clarithromycin [From Biaxin] Allergy Cannot Verified 02/12/19 16:54 Remember clavulanic acid Allergy Rash Verified 09/22/19 19:41 [From Augmentin] glucosamine Allergy Anaphylactic Verified 09/22/19 19:53 Shock hydrocodone Allergy Cannot Verified 09/22/19 19:55 Remember levofloxacin Allergy Nausea and Verified 09/22/19 19:42 Vomiting metronidazole Allergy Drowsiness Verified 09/22/19 19:42 olmesartan [From Benicar] Allergy Cannot Verified 09/22/19 19:52 Remember propoxyphene HCl Allergy Cannot Verified 09/22/19 20:51 [From Darvon] Remember amoxicillin [Amoxicillin] AdvReac Other Verified 09/22/19 19:33 aspirin AdvReac Cannot Verified 09/22/19 19:33 Remember clindamycin AdvReac Cannot Verified 09/22/19 19:40 Remember ibuprofen AdvReac Other Verified 09/22/19 19:40 olmesartan medoxomil AdvReac Other Verified 09/22/19 19:54 [From Benicar] Penicillins AdvReac Nausea and Verified 09/22/19 19:54 Vomiting sucralfate [From Carafate] AdvReac Other Verified 09/22/19 19:38 tramadol AdvReac Cannot Verified 09/22/19 19:32 Remember warfarin [Warfarin] AdvReac Other Verified 09/22/19 19:33 - Blood Blood Available: Yes - Anesthesia Plan Pre-Op Medication Ordered: Beta Corona Beta Corona: Metoprolol Med Last Dose Date: 09/22/19 Med Last Dose Time: 22:39 - Acknowledgements Anesthesia Type Planned: Spinal Pt an Appropriate Candidate for the Planned Anesthesia: Yes Alternatives and Risks of Anesthesia Discussed w Pt/Guardian: Yes Pt/Guardian Understands and Agrees with Anesthesia Plan: Yes PreAnesthesia Questionnaire HEENT History: Reports: Cataract Cardiovascular History: Reports: Afib, Angina, CAD, High Cholesterol, Hypertension Respiratory History: Reports: None Gastrointestinal History: Reports: GERD, PUD Genitourinary History: Reports: Other (See Below) Other Genitourinary History: Kidney tumor taken out 5 years ago - CT scan done every 5 years 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: Other OB/BYN History: Hysterectomy, 2 vaginal births Musculoskeletal History: Reports: Arthritis Psychiatric History: Reports: Anxiety Hematologic History: Reports: Anemia, Iron Deficiency Oncologic (Cancer) History: Reports: Colon, Other (See Below) Other Oncologic History: colon cancer removed january 20 2019 - Infectious Disease History Infectious Disease History: Reports: Chicken Pox - Past Surgical History HEENT Surgical History: Reports: Cataract Surgery Cardiovascular Surgical History: Reports: None GI Surgical History: Reports: Appendectomy, Cholecystectomy, Colonoscopy, Other (See Below) (colon resection) Musculoskeletal Surgical History: Reports: Knee Replacement Oncologic Surgical History: Reports: Biopsy of Breast - History Comment History Comment: takes baby asa at home - SUBSTANCE USE Smoking Status *Q: Never Smoker Tobacco Use Within Last Twelve Months: No Second Hand Smoke Exposure: No Days Per Week of Alcohol Use: 0 Recreational Drug Use History: No - HOME MEDS Home Medications: Home Meds Acetaminophen [Tylenol] 650 mg PO QID PRN 04/09/14 [History] L Acidophil/B Lactis/B Longum [Florajen3] 460 mg PO DAILY 04/09/14 [History] Losartan/Hydrochlorothiazide [Losartan-HCTZ 50-12.5 MG] 50 mg PO DAILY 04/09/14 [History] Omeprazole 20 mg PO DAILY 04/09/14 [History] Sodium Chloride [Rita-128] 1 drop EYEBOTH TID 04/09/14 [History] ALPRAZolam [Alprazolam] 0.25 mg PO BEDTIME PRN 08/30/16 [History] Carboxymethylcellulos/Glycerin [Refresh Optive Gel Eye Drops] 1 drop OP Q4HR PRN 02/12/19 [History] Furosemide [Lasix] 20 mg PO DAILY 02/12/19 [History] Lutein/Minerals/Vit A,C & E [Ocuvite] 1 tab PO DAILY 02/12/19 [History] Metoprolol Succinate [Toprol XL] 25 mg PO DAILY 02/12/19 [History] Multivitamin [Multivitamins] 1 each PO DAILY 02/12/19 [History] - CURRENT (IN HOUSE) MEDS Current Meds: Current Medications Acetaminophen (Tylenol) 650 mg RECTAL Q4H PRN PRN Reason: Pain Alprazolam (Xanax) 0.25 mg PO BEDTIME PRN PRN Reason: other Artificial Tears (Refresh Liquigel 1%) 0 ml EYEBOTH Q4HR PRN PRN Reason: Dry Eyes Cyclobenzaprine HCl (Flexeril) 5 mg PO BID PRN PRN Reason: Spasms Sodium Chloride (Normal Saline) 1,000 mls @ 75 mls/hr IV ASDIRECTED [facility] Last Admin: 09/23/19 01:11 Dose: 75 mls/hr Cefazolin Sodium/Dextrose 2 gm (/ Premix) 50 mls @ 100 mls/hr IV Q8H [facility] Stop: 09/23/19 23:59 Metoprolol Succinate (Toprol Xl) 25 mg PO BEDTIME [facility] Last Admin: 09/22/19 22:39 Dose: 25 mg Naloxone HCl (Narcan) 0.1 mg IVPUSH Q5M PRN PRN Reason: Oversedation Sodium Chloride 5% 1 (Drop) 0 each EYEBOTH TID [facility] Sodium Chloride (Saline Flush) 10 ml FLUSH ASDIRECTED PRN PRN Reason: Keep Vein Open Last Admin: 09/22/19 18:56 Dose: 10 ml Discontinued Medications Acetaminophen (Tylenol) 975 mg PO NOW ONE Stop: 09/22/19 18:54 Last Admin: 09/22/19 18:56 Dose: 975 mg Acetaminophen (Tylenol) Confirm Administered Dose 975 mg .ROUTE .STK-MED ONE Stop: 09/22/19 18:55 Last Admin: 09/22/19 22:40 Dose: Not Given Acetaminophen (Tylenol) 650 mg PO NOW ONE Stop: 09/23/19 01:02 Last Admin: 09/23/19 01:15 Dose: 650 mg Alprazolam (Xanax) 0.25 mg PO BEDTIME PRN PRN Reason: Sleep Last Admin: 09/22/19 22:39 Dose: 0.25 mg Morphine Sulfate 8 mg/Epinephrine HCl 0.3 mg/Cefuroxime Sodium 750 mg/Ketorolac Tromethamine 30 mg/Sodium Chloride 7.9 ml 0 mg .XX ONETIME ONE Stop: 09/23/19 07:31 Morphine Sulfate (Morphine) 1 mg IVPUSH ONETIME ONE Stop: 09/23/19 04:00 Last Admin: 09/23/19 04:14 Dose: 1 mg Ondansetron HCl (Zofran) 4 mg IVPUSH ONETIME ONE Stop: 09/22/19 19:47 Last Admin: 09/22/19 19:53 Dose: 4 mg
--- NOTE | 2019-09-23 08:32 | CR ---
Pelvis and left hip: AP view of the pelvis was obtained as well as AP view of the left hip and crosstable lateral view of the left hip. Displaced and angulated subcapital fracture is noted within the left hip. Degenerative change partially visualized within the lower lumbar spine. Bony structures are osteoporotic. No additional fracture or other bony abnormality is identified. Impression: 1. Left hip fracture as described above. 2. Other findings as noted above which are nonacute. Diagnostic code #3 This report was dictated in MDT
--- NOTE | 2019-09-23 08:57 | PCM.PN ---
- General Info Date of Service: 09/23/19 Admission Dx/Problem (Free Text): Admission Diagnosis/Problem Admission Diagnosis/Problem Hip fracture requiring operative repair Functional Status: Reports: Pain Controlled, Tolerating Diet, Ambulating, Urinating, New Symptoms, Incentive Spirometry - Review of Systems General: Reports: No Symptoms. Denies: Fever, Weakness, Fatigue, Malaise, Chills HEENT: Reports: No Symptoms. Denies: Headaches, Sore Throat Pulmonary: Reports: No Symptoms. Denies: Shortness of Breath, Cough, Sputum, Wheezing Cardiovascular: Reports: No Symptoms. Denies: Chest Pain, Palpitations Gastrointestinal: Reports: No Symptoms. Denies: Abdominal Pain, Constipation, Diarrhea, Nausea, Vomiting Genitourinary: Reports: No Symptoms. Denies: Pain Musculoskeletal: Reports: Leg Pain Skin: Reports: No Symptoms. Denies: Cyanosis Neurological: Reports: No Symptoms, Difficulty Walking, Weakness, Gait Disturbance. Denies: Confusion Psychiatric: Reports: No Symptoms - Patient Data Vitals - Most Recent: Last Vital Signs Temp 98.1 F 09/23/19 03:56 Pulse 67 09/23/19 03:56 Resp 16 09/23/19 03:56 BP 126/61 09/23/19 03:56 Pulse Ox 95 09/23/19 03:56 Weight - Most Recent: 185 lb 1.6 oz I&O - Last 24 Hours: Intake & Output 09/22/19 09/23/19 09/23/19 22:59 06:59 14:59 Intake Total 367 Output Total 450 Balance -83 Lab Results Last 24 Hours: Laboratory Results - last 24 hr 09/22/19 09/22/19 09/22/19 Range/Units 18:20 18:20 18:20 WBC 7.65 (3.98-10.04) K/mm3 RBC 4.51 (3.98-5.22) M/mm3 Hgb 13.7 D (11.2-15.7) gm/dl Hct 39.4 (34.1-44.9) % MCV 87.4 D (79.4-94.8) fl MCH 30.4 (25.6-32.2) pg MCHC 34.8 (32.2-35.5) g/dl RDW Std Deviation 46.3 (36.4-46.3) fL Plt Count 124 L D (182-369) K/mm3 MPV 9.3 L (9.4-12.3) fl Neut % (Auto) 82.6 H (34.0-71.1) % Lymph % (Auto) 8.6 L (19.3-51.7) % [place] % (Auto) 6.8 (4.7-12.5) % Eos % (Auto) 1.6 (0.7-5.8) Baso % (Auto) 0.1 (0.1-1.2) % Neut # (Auto) 6.32 H (1.56-6.13) K/mm3 Lymph # (Auto) 0.66 L (1.18-3.74) K/mm3 [place] # (Auto) 0.52 H (0.24-0.36) K/mm3 Eos # (Auto) 0.12 (0.04-0.36) K/mm3 Baso # (Auto) 0.01 (0.01-0.08) K/mm3 Manual Slide Review Normal smear PT 12.2 H (9.7-12.0) SECONDS INR 1.13 Sodium 129 L (136-145) mEq/L Potassium 3.9 (3.5-5.1) mEq/L Chloride 93 L (98-107) mEq/L Carbon Dioxide 27 (21-32) mEq/L Anion Gap 12.9 (5-15) BUN 17 (7-18) mg/dL Creatinine 1.0 (0.55-1.02) mg/dL Est Cr Clr Drug Dosing 39.20 mL/min Estimated GFR (MDRD) 53 (>60) mL/min BUN/Creatinine Ratio 17.0 (14-18) Glucose 132 H (83-115) mg/dL Calcium 9.6 (8.5-10.1) mg/dL Total Bilirubin 0.9 (0.2-1.0) mg/dL AST 31 (15-37) U/L ALT 28 (14-59) U/L Alkaline Phosphatase 133 H (46-116) U/L Total Protein 8.0 (6.4-8.2) g/dl Albumin 4.2 (3.4-5.0) g/dl Globulin 3.8 gm/dL Albumin/Globulin Ratio 1.1 (1-2) MRSA (PCR) Blood Type Gel Antibody Screen 09/22/19 09/22/19 09/23/19 Range/Units 18:20 23:23 08:23 WBC 9.39 (3.98-10.04) K/mm3 RBC 4.31 (3.98-5.22) M/mm3 Hgb 12.9 (11.2-15.7) gm/dl Hct 37.8 (34.1-44.9) % MCV 87.7 (79.4-94.8) fl MCH 29.9 (25.6-32.2) pg MCHC 34.1 (32.2-35.5) g/dl RDW Std Deviation 46.4 H (36.4-46.3) fL Plt Count 116 L (182-369) K/mm3 MPV 9.7 (9.4-12.3) fl Neut % (Auto) (34.0-71.1) % Lymph % (Auto) (19.3-51.7) % [place] % (Auto) (4.7-12.5) % Eos % (Auto) (0.7-5.8) Baso % (Auto) (0.1-1.2) % Neut # (Auto) (1.56-6.13) K/mm3 Lymph # (Auto) (1.18-3.74) K/mm3 [place] # (Auto) (0.24-0.36) K/mm3 Eos # (Auto) (0.04-0.36) K/mm3 Baso # (Auto) (0.01-0.08) K/mm3 Manual Slide Review PT (9.7-12.0) SECONDS INR Sodium (136-145) mEq/L Potassium (3.5-5.1) mEq/L Chloride (98-107) mEq/L Carbon Dioxide (21-32) mEq/L Anion Gap (5-15) BUN (7-18) mg/dL Creatinine (0.55-1.02) mg/dL Est Cr Clr Drug Dosing mL/min Estimated GFR (MDRD) (>60) mL/min BUN/Creatinine Ratio (14-18) Glucose (83-115) mg/dL Calcium (8.5-10.1) mg/dL Total Bilirubin (0.2-1.0) mg/dL AST (15-37) U/L ALT (14-59) U/L Alkaline Phosphatase (46-116) U/L Total Protein (6.4-8.2) g/dl Albumin (3.4-5.0) g/dl Globulin gm/dL Albumin/Globulin Ratio (1-2) MRSA (PCR) Negative Blood Type O POSITIVE Gel Antibody Screen Negative Med Orders - Current: Current Medications Acetaminophen (Tylenol) 650 mg RECTAL Q4H PRN PRN Reason: Pain Alprazolam (Xanax) 0.25 mg PO BEDTIME PRN PRN Reason: other Artificial Tears (Refresh Liquigel 1%) 0 ml EYEBOTH Q4HR PRN PRN Reason: Dry Eyes Cyclobenzaprine HCl (Flexeril) 5 mg PO BID PRN PRN Reason: Spasms Sodium Chloride (Normal Saline) 1,000 mls @ 75 mls/hr IV ASDIRECTED [facility] Last Admin: 09/23/19 01:11 Dose: 75 mls/hr Cefazolin Sodium/Dextrose 2 gm (/ Premix) 50 mls @ 100 mls/hr IV Q8H [facility] Stop: 09/23/19 23:59 Metoprolol Succinate (Toprol Xl) 25 mg PO BEDTIME [facility] Last Admin: 09/22/19 22:39 Dose: 25 mg Naloxone HCl (Narcan) 0.1 mg IVPUSH Q5M PRN PRN Reason: Oversedation Sodium Chloride 5% 1 (Drop) 0 each EYEBOTH TID [facility] Sodium Chloride (Saline Flush) 10 ml FLUSH ASDIRECTED PRN PRN Reason: Keep Vein Open Last Admin: 09/22/19 18:56 Dose: 10 ml Discontinued Medications Acetaminophen (Tylenol) 975 mg PO NOW ONE Stop: 09/22/19 18:54 Last Admin: 09/22/19 18:56 Dose: 975 mg Acetaminophen (Tylenol) Confirm Administered Dose 975 mg .ROUTE .STK-MED ONE Stop: 09/22/19 18:55 Last Admin: 09/22/19 22:40 Dose: Not Given Acetaminophen (Tylenol) 650 mg PO NOW ONE Stop: 09/23/19 01:02 Last Admin: 09/23/19 01:15 Dose: 650 mg Alprazolam (Xanax) 0.25 mg PO BEDTIME PRN PRN Reason: Sleep Last Admin: 09/22/19 22:39 Dose: 0.25 mg Morphine Sulfate 8 mg/Epinephrine HCl 0.3 mg/Cefuroxime Sodium 750 mg/Ketorolac Tromethamine 30 mg/Sodium Chloride 7.9 ml 0 mg .XX ONETIME ONE Stop: 09/23/19 07:31 Morphine Sulfate (Morphine) 1 mg IVPUSH ONETIME ONE Stop: 09/23/19 04:00 Last Admin: 09/23/19 04:14 Dose: 1 mg Ondansetron HCl (Zofran) 4 mg IVPUSH ONETIME ONE Stop: 09/22/19 19:47 Last Admin: 09/22/19 19:53 Dose: 4 mg - Exam Quality Assessment: Supplemental Oxygen, Urine Catheter, DVT Prophylaxis General: Alert, Oriented, Cooperative, No Acute Distress HEENT: Pupils Equal, Pupils Reactive, Mucous Membr. Moist/[place] Neck: Supple, Trachea Midline Lungs: Clear to Auscultation, Normal Respiratory Effort Cardiovascular: Regular Rate, Regular Rhythm GI/Abdominal Exam: Normal Bowel Sounds, Soft, Non-Tender, No Distention (Female) Exam: Deferred Back Exam: Normal Inspection, Full Range of Motion Extremities: Normal Capillary Refill, Leg Pain, Limited Range of Motion, Other ( Bandage in place on left leg. cooling pack in place.) Peripheral Pulses: 2+: Radial (L), Radial (R), Dorsalis Pedis (L), Dorsalis Pedis (R) Skin: Warm, Dry, Intact Wound/Incisions: Dressing Dry and Intact Neurological: No New Focal Deficit Psy/Mental Status: Alert Sepsis Event Note - Evaluation Sepsis Screening Result: No Definite Risk - Focused Exam Vital Signs: Vital Signs Temp Pulse Resp BP Pulse Ox 09/23/19 03:56 98.1 F 67 16 126/61 95 09/22/19 22:39 64 117/67 09/22/19 21:35 97.7 F 64 18 117/67 97 Date Exam was Performed: 09/23/19 Time Exam was Performed: 16:33 - Problem List & Annotations (1) S/P total hip arthroplasty SNOMED Code(s): 730807422731, 737694254135 Code(s): Z96.649 - PRESENCE OF UNSPECIFIED ARTIFICIAL HIP JOINT Status: Acute Priority: High Current Visit: Yes Qualifiers: Laterality: right Qualified Code(s): Z96.641 - Presence of right artificial hip joint (2) Fracture of neck of femur, hip SNOMED Code(s): 0119206 Code(s): S72.009A - FRACTURE OF UNSP PART OF NECK OF UNSP FEMUR, INIT Status: Acute Priority: High Current Visit: Yes (3) Hypernatremia SNOMED Code(s): 563781254 Code(s): E87.0 - HYPEROSMOLALITY AND HYPERNATREMIA Status: Chronic Priority: High Current Visit: Yes (4) Chronic a-fib SNOMED Code(s): 201820752 Code(s): I48.20 - CHRONIC ATRIAL FIBRILLATION, UNSPECIFIED Status: Chronic Priority: Medium Current Visit: No (5) Pacemaker SNOMED Code(s): 907643682 Code(s): Z95.0 - PRESENCE OF CARDIAC PACEMAKER Status: Chronic Priority: Low Current Visit: No (6) Hypertension SNOMED Code(s): 28273825 Code(s): I10 - ESSENTIAL (PRIMARY) HYPERTENSION Status: Chronic Priority : Medium Current Visit: No Qualifiers: Hypertension type: unspecified Qualified Code(s): I10 - Essential (primary ) hypertension (7) Status post fall SNOMED Code(s): 915231682 Code(s): Z91.81 - HISTORY OF FALLING Status: Acute Priority: High Current Visit: Yes - Problem List Review Problem List Initiated/Reviewed/Updated: Yes - My Orders Last 24 Hours: My Active Orders 09/23/19 07:37 Consult to Case Management/Installment Loan Collector [CONS] Routine - Plan Plan:: Assessment 83-year-old female who fell in her yard sustained a left femoral neck fracture. * Chest x-ray shows cardiomegaly with no acute findings * History of left TKA * 12-lead EKG shows ventricularly paced atrial fibrillation with a rate of 61 * Type and screen * S/P left hip endoprosthesis with Dr Vick today (09/23/19) Post-op day 0 * PT/OT postoperatively * Bedrest until postop * Maintenance IV fluids * Incentive spirometry * Case management and psychotherapist social worker Hyponatremia * Sodium 129-->132 * NS at 100 mL an hour --> discontinue * Check CMP in the morning * History of mild chronic hyponatremia in the low 130s Chronic atrial fibrillation, ventricularly paced, without anticoagulation * Patient has a history of peptic ulcer disease * She is intolerant of Xarelto and Coumadin * Takes a low-dose baby aspirin * On metoprolol XL 25 mg at night Hypertension * On metoprolol, losartan, hydrochlorothiazide, and Lasix Plan * Admit to medical floor on telemetry * Review home medications * Hold losartan, hydrochlorothiazide, and Lasix in the morning * CMP, CBC, and magnesium in the morning * PT/OT postoperatively * VTE prophylaxis with SCDs * CODE STATUS: DNR/DNI * Length of stay anticipated 3 to 4 days total . * CM/SW consult
[2019-09-23] MEDS ORDERED: Propofol 200 MG/20 ML SDV ONE ×2 (10:55→12:31)
[2019-09-23] MEDS ORDERED: fentaNYL 100 MCG/2 ML SDV ONE (10:55)
[2019-09-23] MEDS ORDERED: Midazolam 1 MG/ML 2 ML SDV ONE (10:56)
[2019-09-23] MEDS ORDERED: Iodine/Sodium Iodide 2% Tincture 30 ML Bottle ONE (11:00)
[2019-09-23] MEDS ORDERED: ceFAZolin 1 GM Vial ONE (11:00)
[2019-09-23] MEDS ORDERED: Lactated Ringers 1,000 ML ONE ×2 (11:55)
[2019-09-23] MEDS: Bupivacaine 0.25% 10 ML SDV ONE ×2 (12:30→12:53)
[2019-09-23] MEDS: ceFAZolin 1 GM Vial ONE ×2 (12:31→12:49)
[2019-09-23] MEDS: Morphine 8 MG, EPINEPHrine 0.3 MG, Cefuroxime 750 MG, Ketorolac 30 MG, Sodium Chloride ... ONE ×10 (12:33→12:54)
[2019-09-23] MEDS: Vancomycin 1 GM SDV ONE ×2 (12:34→12:55)
[2019-09-23] MEDS: SODIUM CHLORIDE 5% EYEBOTH SCH ×3 (12:48→21:49)
--- NOTE | 2019-09-23 13:35 | PCM.POSTAN ---
POST ANESTHESIA ASSESSMENT - MENTAL STATUS Mental Status: Somnolent - VITAL SIGNS Vital Signs: Last Vital Signs Temp 36.7 C 09/23/19 08:52 Pulse 65 09/23/19 08:52 Resp 20 09/23/19 08:52 BP 101/71 09/23/19 08:52 Pulse Ox 90 L 09/23/19 08:52 - RESPIRATORY Respiratory Status: Respiratory Rate WNL, Airway Patent, O2 Saturation Stable, Supplemental Oxygen - CARDIOVASCULAR CV Status: Pulse Rate WNL, Blood Pressure Stable - GASTROINTESTINAL GI Status: No Symptoms - PAIN Pain Score: 0 - POST OP HYDRATION Hydration Status: Adequate & Stable - OBSERVATIONS Free Text/Narrative:: no anesthesia complications noted
--- NOTE | 2019-09-23 13:59 | CR ---
Pelvis and left hip: AP view of the pelvis was obtained as well as crosstable lateral views left hip. Comparison: Previous left hip and pelvis study of 09/22/19. Left hip prosthesis is noted. Component is aligned to the acetabulum. Disc space narrowing and endplate spurring is partially visualized within the lumbar spine. Osteopenia is present. No acute finding is seen. Impression: 1. Recently placed left hip prosthesis which appears within normal limits. 2. Other findings which are stable from previous exam. Diagnostic code #2 Study was dictated in MDT
[2019-09-23] MEDS: Carboxymethylcellulose Sodium 1% Ophth Gel 15 ML Bottle EYEBOTH PRN (16:36)
[2019-09-23] MEDS ORDERED: Ondansetron 4 MG/2 ML SDV IVPUSH PRN (17:55)
[2019-09-23] MEDS ORDERED: Morphine 2 MG/ML Syringe IVPUSH PRN (17:56)
[2019-09-23] MEDS: ceFAZolin 2 GM in Premix Bag 1 BAG IV SCH (18:18)
[2019-09-23] MEDS ORDERED: Metoprolol Succinate 25 MG Tab.ER PO SCH (21:00)
[2019-09-23] MEDS: Metoprolol Succinate 25 MG Tab.ER PO SCH (21:47)
[2019-09-23] MEDS ORDERED: Metoprolol Succinate 25 MG Tab.ER PO ONE (22:24)
[2019-09-24] MEDS: Acetaminophen/oxyCODONE 325-5 MG Tab PO PRN ×2 (00:21→20:44)
[2019-09-24] MEDS: ceFAZolin 2 GM in Premix Bag 1 BAG IV SCH ×2 (04:06→10:59)
[2019-09-24] MEDS: Pantoprazole 40 MG Tab.CR PO SCH (06:20)
--- NOTE | 2019-09-24 07:15 | PCM.PN ---
- General Info Date of Service: 09/24/19 Admission Dx/Problem (Free Text): Admission Diagnosis/Problem Admission Diagnosis/Problem Hip fracture requiring operative repair Functional Status: Reports: Pain Controlled, Tolerating Diet, Ambulating, Urinating, Incentive Spirometry. Denies: New Symptoms - Review of Systems General: Reports: Weakness. Denies: Fever, Fatigue, Malaise, Chills HEENT: Reports: No Symptoms. Denies: Headaches, Sore Throat Pulmonary: Reports: No Symptoms. Denies: Shortness of Breath, Cough, Sputum, Wheezing Cardiovascular: Reports: No Symptoms. Denies: Chest Pain, Palpitations, Edema Gastrointestinal: Reports: No Symptoms. Denies: Abdominal Pain, Constipation, Diarrhea, Nausea, Vomiting Genitourinary: Reports: No Symptoms. Denies: Pain Musculoskeletal: Reports: Leg Pain Skin: Reports: No Symptoms. Denies: Cyanosis Neurological: Reports: Difficulty Walking, Weakness, Gait Disturbance. Denies: Confusion Psychiatric: Reports: No Symptoms - Patient Data Vitals - Most Recent: Last Vital Signs Temp 98.1 F 09/23/19 23:54 Pulse 59 L 09/23/19 23:54 Resp 14 09/23/19 20:23 BP 87/46 L 09/23/19 23:54 Pulse Ox 90 L 09/23/19 23:54 Weight - Most Recent: 185 lb 1.6 oz I&O - Last 24 Hours: Intake & Output 09/23/19 09/24/19 09/24/19 22:59 06:59 14:59 Intake Total 121 Balance 121 Lab Results Last 24 Hours: Laboratory Results - last 24 hr 09/23/19 09/23/19 09/24/19 Range/Units 08:23 08:23 04:46 WBC 9.39 11.42 H (3.98-10.04) K/mm3 RBC 4.31 4.14 (3.98-5.22) M/mm3 Hgb 12.9 12.3 (11.2-15.7) gm/dl Hct 37.8 37.3 (34.1-44.9) % MCV 87.7 90.1 (79.4-94.8) fl MCH 29.9 29.7 (25.6-32.2) pg MCHC 34.1 33.0 (32.2-35.5) g/dl RDW Std Deviation 46.4 H 49.7 H (36.4-46.3) fL Plt Count 116 L 109 L (182-369) K/mm3 MPV 9.7 10.5 (9.4-12.3) fl Neut % (Auto) 87.5 H (34.0-71.1) % Lymph % (Auto) 5.5 L (19.3-51.7) % [place] % (Auto) 6.0 (4.7-12.5) % Eos % (Auto) 0.6 L (0.7-5.8) Baso % (Auto) 0.1 (0.1-1.2) % Neut # (Auto) 9.99 H (1.56-6.13) K/mm3 Lymph # (Auto) 0.63 L (1.18-3.74) K/mm3 [place] # (Auto) 0.69 H (0.24-0.36) K/mm3 Eos # (Auto) 0.07 (0.04-0.36) K/mm3 Baso # (Auto) 0.01 (0.01-0.08) K/mm3 Manual Slide Review Abnormal smear Sodium 132 L (136-145) mEq/L Potassium 4.0 (3.5-5.1) mEq/L Chloride 96 L (98-107) mEq/L Carbon Dioxide 25 (21-32) mEq/L Anion Gap 15.0 (5-15) BUN 14 (7-18) mg/dL Creatinine 0.9 (0.55-1.02) mg/dL Est Cr Clr Drug Dosing 46.94 mL/min Estimated GFR (MDRD) 60 (>60) mL/min BUN/Creatinine Ratio 15.6 (14-18) Glucose 132 H (83-115) mg/dL Calcium 9.1 (8.5-10.1) mg/dL Magnesium 1.8 (1.8-2.4) mg/dl Total Bilirubin 1.4 H (0.2-1.0) mg/dL AST 28 (15-37) U/L ALT 26 (14-59) U/L Alkaline Phosphatase 117 H (46-116) U/L Total Protein 7.3 (6.4-8.2) g/dl Albumin 3.5 (3.4-5.0) g/dl Globulin 3.8 gm/dL Albumin/Globulin Ratio 0.9 L (1-2) Med Orders - Current: Current Medications Acetaminophen (Tylenol) 650 mg RECTAL Q4H PRN PRN Reason: Pain Alprazolam (Xanax) 0.25 mg PO BEDTIME PRN PRN Reason: other Artificial Tears (Refresh Liquigel 1%) 0 ml EYEBOTH Q4HR PRN PRN Reason: Dry Eyes Last Admin: 09/23/19 16:36 Dose: 1 drop Cyclobenzaprine HCl (Flexeril) 5 mg PO BID PRN PRN Reason: Spasms Docusate Sodium (Colace) 100 mg PO BID [facility] Cefazolin Sodium/Dextrose 2 gm (/ Premix) 50 mls @ 100 mls/hr IV Q8H [facility] Stop: 09/24/19 11:29 Last Admin: 09/24/19 04:06 Dose: 100 mls/hr Metoprolol Succinate (Toprol Xl) 25 mg PO BEDTIME [facility] Last Admin: 09/23/19 21:47 Dose: 25 mg Morphine Sulfate (Morphine) 2 mg IVPUSH Q2H PRN PRN Reason: Breakthrough Pain Naloxone HCl (Narcan) 0.1 mg IVPUSH Q5M PRN PRN Reason: Oversedation Ondansetron HCl (Zofran) 4 mg IVPUSH Q8H PRN PRN Reason: Nausea/Vomiting Last Admin: 09/23/19 18:29 Dose: 4 mg Oxycodone/Acetaminophen (Percocet 325-5 Mg) 1 - 2 tab PO Q4H PRN PRN Reason: Pain Last Admin: 09/24/19 00:21 Dose: 1 tab Pantoprazole Sodium (Protonix) 40 mg PO DAILY@0700 [facility] Sodium Chloride 5% 1 (Drop) 0 each EYEBOTH TID [facility] Last Admin: 09/23/19 21:49 Dose: 1 each Sodium Chloride (Saline Flush) 10 ml FLUSH ASDIRECTED PRN PRN Reason: Keep Vein Open Last Admin: 09/22/19 18:56 Dose: 10 ml Discontinued Medications Acetaminophen (Tylenol) 975 mg PO NOW ONE Stop: 09/22/19 18:54 Last Admin: 09/22/19 18:56 Dose: 975 mg Acetaminophen (Tylenol) Confirm Administered Dose 975 mg .ROUTE .STK-MED ONE Stop: 09/22/19 18:55 Last Admin: 09/22/19 22:40 Dose: Not Given Acetaminophen (Tylenol) 650 mg PO NOW ONE Stop: 09/23/19 01:02 Last Admin: 09/23/19 01:15 Dose: 650 mg Alprazolam (Xanax) 0.25 mg PO BEDTIME PRN PRN Reason: Sleep Last Admin: 09/22/19 22:39 Dose: 0.25 mg Bupivacaine HCl (Sensorcaine-Mpf 0.25%) Confirm Administered Dose 30 ml .ROUTE .STK-MED ONE Stop: 09/23/19 11:01 Last Admin: 09/23/19 12:53 Dose: 30 ml Cefazolin Sodium (Ancef) Confirm Administered Dose 2 gm .ROUTE .STK-MED ONE Stop: 09/23/19 10:57 Last Admin: 09/23/19 12:49 Dose: 2 gm Cefazolin Sodium (Ancef) Confirm Administered Dose 2 gm .ROUTE .STK-MED ONE Stop: 09/23/19 11:01 Morphine Sulfate 8 mg/Epinephrine HCl 0.3 mg/Cefuroxime Sodium 750 mg/Ketorolac Tromethamine 30 mg/Sodium Chloride 7.9 ml 0 mg .XX ONETIME ONE Stop: 09/23/19 07:31 Last Admin: 09/23/19 12:54 Dose: 788.3 mg Fentanyl (Sublimaze) Confirm Administered Dose 100 mcg .ROUTE .STK-MED ONE Stop: 09/23/19 10:56 Sodium Chloride (Normal Saline) 1,000 mls @ 75 mls/hr IV ASDIRECTED [facility] Last Admin: 09/23/19 01:11 Dose: 75 mls/hr Lactated Ringer's (Ringers, Lactated) Confirm Administered Dose 1,000 mls @ as directed .ROUTE .STK-MED ONE Stop: 09/23/19 11:56 Lactated Ringer's (Ringers, Lactated) Confirm Administered Dose 1,000 mls @ as directed .ROUTE .STK-MED ONE Stop: 09/23/19 11:56 Iodine (Iodine 2% Mild Tincture) Confirm Administered Dose 30 ml .ROUTE .STK- MED ONE Stop: 09/23/19 11:01 Midazolam HCl (Versed 1 Mg/Ml) Confirm Administered Dose 2 mg .ROUTE .STK-MED ONE Stop: 09/23/19 10:57 Miscellaneous Medication (Phenylephrine 1 Mg/10 Ml-Ns) Confirm Administered Dose 1 mg IV .STK-MED ONE Stop: 09/23/19 12:38 Morphine Sulfate (Morphine) 1 mg IVPUSH ONETIME ONE Stop: 09/23/19 04:00 Last Admin: 09/23/19 04:14 Dose: 1 mg Ondansetron HCl (Zofran) 4 mg IVPUSH ONETIME ONE Stop: 09/22/19 19:47 Last Admin: 09/22/19 19:53 Dose: 4 mg Propofol (Diprivan 20 Ml) Confirm Administered Dose 200 mg .ROUTE .STK-MED ONE Stop: 09/23/19 10:56 Propofol (Diprivan 20 Ml) Confirm Administered Dose 200 mg .ROUTE .STK-MED ONE Stop: 09/23/19 12:32 Tranexamic Acid (Cyklokapron) Confirm Administered Dose 1,000 mg .ROUTE .STK- MED ONE Stop: 09/23/19 11:00 Last Admin: 09/23/19 12:55 Dose: 1,000 mg Vancomycin HCl (Vancomycin) Confirm Administered Dose 1 gm .ROUTE .STK-MED ONE Stop: 09/23/19 11:01 Last Admin: 09/23/19 12:55 Dose: 1 gm - Exam Quality Assessment: DVT Prophylaxis. No: Supplemental Oxygen, Urine Catheter General: Alert, Oriented, Cooperative, No Acute Distress HEENT: Pupils Equal, Pupils Reactive, Mucous Membr. Moist/[place] Neck: Supple, Trachea Midline Lungs: Clear to Auscultation, Normal Respiratory Effort Cardiovascular: Regular Rate, Regular Rhythm, Murmurs GI/Abdominal Exam: Normal Bowel Sounds, Soft, Non-Tender, No Distention (Female) Exam: Deferred Back Exam: Normal Inspection, Full Range of Motion Extremities: Normal Capillary Refill, Leg Pain, Limited Range of Motion, Other ( Bandage in place on right leg) Skin: Warm, Dry, Intact Neurological: No New Focal Deficit Psy/Mental Status: Alert, Normal Affect, Normal Mood Sepsis Event Note - Evaluation Sepsis Screening Result: No Definite Risk - Focused Exam Vital Signs: Vital Signs Temp Pulse Resp BP Pulse Ox 09/23/19 23:54 98.1 F 59 L 87/46 L 90 L 09/23/19 21:47 69 109/57 L 09/23/19 20:23 97.5 F 69 14 109/57 L 91 L Date Exam was Performed: 09/24/19 Time Exam was Performed: 16:04 - Problem List & Annotations (1) S/P total hip arthroplasty SNOMED Code(s): 016803355224, 539387934415 Code(s): Z96.649 - PRESENCE OF UNSPECIFIED ARTIFICIAL HIP JOINT Status: Acute Priority: High Current Visit: Yes Qualifiers: Laterality: right Qualified Code(s): Z96.641 - Presence of right artificial hip joint (2) Fracture of neck of femur, hip SNOMED Code(s): 9410828 Code(s): S72.009A - FRACTURE OF UNSP PART OF NECK OF UNSP FEMUR, INIT Status: Acute Priority: High Current Visit: Yes (3) Hypernatremia SNOMED Code(s): 868785698 Code(s): E87.0 - HYPEROSMOLALITY AND HYPERNATREMIA Status: Chronic Priority: High Current Visit: Yes (4) Chronic a-fib SNOMED Code(s): 170243825 Code(s): I48.20 - CHRONIC ATRIAL FIBRILLATION, UNSPECIFIED Status: Chronic Priority: Medium Current Visit: No (5) Pacemaker SNOMED Code(s): 941364732 Code(s): Z95.0 - PRESENCE OF CARDIAC PACEMAKER Status: Chronic Priority: Low Current Visit: No (6) Hypertension SNOMED Code(s): 16190471 Code(s): I10 - ESSENTIAL (PRIMARY) HYPERTENSION Status: Chronic Priority : Medium Current Visit: No Qualifiers: Hypertension type: unspecified Qualified Code(s): I10 - Essential (primary ) hypertension (7) Status post fall SNOMED Code(s): 788598775 Code(s): Z91.81 - HISTORY OF FALLING Status: Acute Priority: High Current Visit: Yes (8) Acute kidney injury SNOMED Code(s): 62597397, 42327948 Code(s): N17.9 - ACUTE KIDNEY FAILURE, UNSPECIFIED Status: Acute Current Visit: Yes - Problem List Review Problem List Initiated/Reviewed/Updated: Yes - My Orders Last 24 Hours: My Active Orders 09/23/19 07:37 Consult to Case Management/Bricklayer Tender [CONS] Routine 09/23/19 17:54 Acetaminophen/oxyCODONE [Percocet 325-5 MG] 1 - 2 tab PO Q4H PRN 09/23/19 17:55 Ondansetron [Zofran] 4 mg IVPUSH Q8H PRN 09/23/19 17:56 Morphine 2 mg IVPUSH Q2H PRN 09/23/19 Dinner Heart Healthy Diet [DIET] 09/24/19 05:11 CMP [COMPREHENSIVE METABOLIC PN,CMP] [CHEM] AM MAGNESIUM [CHEM] AM 09/24/19 07:00 Pantoprazole [ProTONIX] 40 mg PO DAILY@0700 09/25/19 05:11 CBC WITH AUTO DIFF [HEME] AM CMP [COMPREHENSIVE METABOLIC PN,CMP] [CHEM] AM MAGNESIUM [CHEM] AM 09/26/19 05:11 CBC WITH AUTO DIFF [HEME] AM CMP [COMPREHENSIVE METABOLIC PN,CMP] [CHEM] AM MAGNESIUM [CHEM] AM 09/27/19 05:11 CBC WITH AUTO DIFF [HEME] AM CMP [COMPREHENSIVE METABOLIC PN,CMP] [CHEM] AM MAGNESIUM [CHEM] AM - Plan Plan:: Assessment 83-year-old female who fell in her yard sustained a left femoral neck fracture. * Chest x-ray shows cardiomegaly with no acute findings * History of left TKA * 12-lead EKG shows ventricularly paced atrial fibrillation with a rate of 61 * Type and screen * S/P left hip endoprosthesis with Dr Vick (09/23/19); Post-op day 1 * PT/OT postoperatively * Up with assistance * Maintenance IV fluids * Incentive spirometry * Case management and dialysis social worker Hyponatremia * Sodium 129-->132-->130 * NS at 100 mL an hour --> discontinue * Check CMP in the morning * History of mild chronic hyponatremia in the low 130s Chronic atrial fibrillation, ventricularly paced, without anticoagulation * Patient has a history of peptic ulcer disease * She is intolerant of Xarelto and Coumadin * Takes a low-dose baby aspirin * On metoprolol XL 25 mg at night Hypertension * On metoprolol, losartan, hydrochlorothiazide, and Lasix Acute Kidney Injury * BUN 17-->14-->22 * Creatinine 1.0-->0.9-->1.4 * GFR 53-->60-->36 * Likely 2/2 poor oral intake and anesthesia * IV fluids as directed * Caution with baseline CHF Plan * Admit to medical floor on telemetry * Review home medications * Hold losartan, hydrochlorothiazide, and Lasix in the morning * CMP, CBC, and magnesium in the morning * PT/OT -> recommending SNF rehab stay * VTE prophylaxis with SCDs * CODE STATUS: DNR/DNI * Length of stay anticipated 3 to 4 days total . * CM/SW consult
--- NOTE | 2019-09-24 07:59 | PCM48HPAN ---
Post Anesthesia Note - EVALUATION WITHIN 48HRS OF ANESTHETIC Vital Signs in Normal Range: Yes Patient Participated in Evaluation: Yes Respiratory Function Stable: Yes Airway Patent: Yes Cardiovascular Function Stable: Yes Hydration Status Stable: Yes Pain Control Satisfactory: Yes Nausea and Vomiting Control Satisfactory: Yes Mental Status Recovered: Yes Vital Signs: Last Vital Signs Temp 98.1 F 09/23/19 23:54 Pulse 59 L 09/23/19 23:54 Resp 14 09/23/19 20:23 BP 87/46 L 09/23/19 23:54 Pulse Ox 90 L 09/23/19 23:54 - COMMENTS/OBSERVATIONS Free Text/Narrative:: Patient on her postoperative day 1. Pain level under control. States having been out of bed, denies nausea, headaches or backaches. No apparent anesthesia complications noted.
[2019-09-24] MEDS ORDERED: Lactated Ringers 1,000 ML IV SCH (09:00)
[2019-09-24] MEDS: Apixaban 2.5 MG Tab PO SCH ×2 (09:40→20:39)
[2019-09-24] MEDS: Docusate Sodium 100 MG Cap PO SCH ×2 (09:42→20:39)
[2019-09-24] MEDS: SODIUM CHLORIDE 5% EYEBOTH SCH ×3 (09:43→20:43)
[2019-09-24] MEDS: Carboxymethylcellulose Sodium 1% Ophth Gel 15 ML Bottle EYEBOTH PRN ×3 (09:58→20:44)
--- NOTE | 2019-09-24 12:18 | PCM.SURGPN ---
- General Info Date of Service: 09/24/19 POD#: 1 Functional Status: Reports: Pain Controlled, Tolerating Diet, Ambulating, Urinating, Incentive Spirometry, Other (Pt states she is tired "from that shower and PT too". She reports she didn't sleep well, however, not due to pain.) - Patient Data Vitals - Most Recent: Last Vital Signs Temp 97.3 F 09/24/19 08:19 Pulse 62 09/24/19 08:19 Resp 17 09/24/19 08:19 BP 109/69 09/24/19 08:19 Pulse Ox 91 L 09/24/19 08:19 Weight - Most Recent: 185 lb 1.6 oz I&O - Last 24 Hours: Intake & Output 09/23/19 09/24/19 09/24/19 22:59 06:59 14:59 Intake Total 121 900 Output Total 150 Balance 121 750 Lab Results Last 24 Hrs: Laboratory Results - last 24 hr 09/24/19 09/24/19 Range/Units 04:46 04:46 WBC 11.42 H (3.98-10.04) K/mm3 RBC 4.14 (3.98-5.22) M/mm3 Hgb 12.3 (11.2-15.7) gm/dl Hct 37.3 (34.1-44.9) % MCV 90.1 (79.4-94.8) fl MCH 29.7 (25.6-32.2) pg MCHC 33.0 (32.2-35.5) g/dl RDW Std Deviation 49.7 H (36.4-46.3) fL Plt Count 109 L (182-369) K/mm3 MPV 10.5 (9.4-12.3) fl Neut % (Auto) 87.5 H (34.0-71.1) % Lymph % (Auto) 5.5 L (19.3-51.7) % Ada % (Auto) 6.0 (4.7-12.5) % Eos % (Auto) 0.6 L (0.7-5.8) Baso % (Auto) 0.1 (0.1-1.2) % Neut # (Auto) 9.99 H (1.56-6.13) K/mm3 Lymph # (Auto) 0.63 L (1.18-3.74) K/mm3 Ada # (Auto) 0.69 H (0.24-0.36) K/mm3 Eos # (Auto) 0.07 (0.04-0.36) K/mm3 Baso # (Auto) 0.01 (0.01-0.08) K/mm3 Manual Slide Review Abnormal smear Sodium 130 L (136-145) mEq/L Potassium 4.1 (3.5-5.1) mEq/L Chloride 94 L (98-107) mEq/L Carbon Dioxide 25 (21-32) mEq/L Anion Gap 15.1 H (5-15) BUN 22 H (7-18) mg/dL Creatinine 1.4 H (0.55-1.02) mg/dL Est Cr Clr Drug Dosing 30.18 mL/min Estimated GFR (MDRD) 36 (>60) mL/min BUN/Creatinine Ratio 15.7 (14-18) Glucose 127 H (83-115) mg/dL Calcium 9.0 (8.5-10.1) mg/dL Magnesium 1.9 (1.8-2.4) mg/dl Total Bilirubin 1.7 H (0.2-1.0) mg/dL AST 49 H (15-37) U/L ALT 28 (14-59) U/L Alkaline Phosphatase 111 (46-116) U/L Total Protein 6.7 (6.4-8.2) g/dl Albumin 3.2 L (3.4-5.0) g/dl Globulin 3.5 gm/dL Albumin/Globulin Ratio 0.9 L (1-2) Med Orders - Current: Current Medications Acetaminophen (Tylenol) 650 mg RECTAL Q4H PRN PRN Reason: Pain Alprazolam (Xanax) 0.25 mg PO BEDTIME PRN PRN Reason: other Apixaban (Eliquis) 2.5 mg PO BID [facility] Last Admin: 09/24/19 09:40 Dose: 2.5 mg Artificial Tears (Refresh Liquigel 1%) 0 ml EYEBOTH Q4HR PRN PRN Reason: Dry Eyes Last Admin: 09/24/19 09:58 Dose: 1 drop Cyclobenzaprine HCl (Flexeril) 5 mg PO BID PRN PRN Reason: Spasms Docusate Sodium (Colace) 100 mg PO BID [facility] Last Admin: 09/24/19 09:42 Dose: 100 mg Lactated Ringer's (Ringers, Lactated) 1,000 mls @ 125 mls/hr IV ASDIRECTED [facility] Stop: 09/25/19 16:59 Last Admin: 09/24/19 10:59 Dose: 125 mls/hr Metoprolol Succinate (Toprol Xl) 25 mg PO BEDTIME [facility] Last Admin: 09/23/19 21:47 Dose: 25 mg Morphine Sulfate (Morphine) 2 mg IVPUSH Q2H PRN PRN Reason: Breakthrough Pain Naloxone HCl (Narcan) 0.1 mg IVPUSH Q5M PRN PRN Reason: Oversedation Ondansetron HCl (Zofran) 4 mg IVPUSH Q8H PRN PRN Reason: Nausea/Vomiting Last Admin: 09/23/19 18:29 Dose: 4 mg Oxycodone/Acetaminophen (Percocet 325-5 Mg) 1 - 2 tab PO Q4H PRN PRN Reason: Pain Last Admin: 09/24/19 00:21 Dose: 1 tab Pantoprazole Sodium (Protonix) 40 mg PO DAILY@0700 [facility] Last Admin: 09/24/19 06:20 Dose: 40 mg Sodium Chloride 5% 1 (Drop) 0 each EYEBOTH TID [facility] Last Admin: 09/24/19 09:43 Dose: 1 each Sodium Chloride (Saline Flush) 10 ml FLUSH ASDIRECTED PRN PRN Reason: Keep Vein Open Last Admin: 09/22/19 18:56 Dose: 10 ml Discontinued Medications Acetaminophen (Tylenol) 975 mg PO NOW ONE Stop: 09/22/19 18:54 Last Admin: 09/22/19 18:56 Dose: 975 mg Acetaminophen (Tylenol) Confirm Administered Dose 975 mg .ROUTE .STK-MED ONE Stop: 09/22/19 18:55 Last Admin: 09/22/19 22:40 Dose: Not Given Acetaminophen (Tylenol) 650 mg PO NOW ONE Stop: 09/23/19 01:02 Last Admin: 09/23/19 01:15 Dose: 650 mg Alprazolam (Xanax) 0.25 mg PO BEDTIME PRN PRN Reason: Sleep Last Admin: 09/22/19 22:39 Dose: 0.25 mg Bupivacaine HCl (Sensorcaine-Mpf 0.25%) Confirm Administered Dose 30 ml .ROUTE .STK-MED ONE Stop: 09/23/19 11:01 Last Admin: 09/23/19 12:53 Dose: 30 ml Cefazolin Sodium (Ancef) Confirm Administered Dose 2 gm .ROUTE .STK-MED ONE Stop: 09/23/19 10:57 Last Admin: 09/23/19 12:49 Dose: 2 gm Cefazolin Sodium (Ancef) Confirm Administered Dose 2 gm .ROUTE .STK-MED ONE Stop: 09/23/19 11:01 Morphine Sulfate 8 mg/Epinephrine HCl 0.3 mg/Cefuroxime Sodium 750 mg/Ketorolac Tromethamine 30 mg/Sodium Chloride 7.9 ml 0 mg .XX ONETIME ONE Stop: 09/23/19 07:31 Last Admin: 09/23/19 12:54 Dose: 788.3 mg Fentanyl (Sublimaze) Confirm Administered Dose 100 mcg .ROUTE .STK-MED ONE Stop: 09/23/19 10:56 Sodium Chloride (Normal Saline) 1,000 mls @ 75 mls/hr IV ASDIRECTED [facility] Last Admin: 09/23/19 01:11 Dose: 75 mls/hr Cefazolin Sodium/Dextrose 2 gm (/ Premix) 50 mls @ 100 mls/hr IV Q8H [facility] Stop: 09/24/19 11:29 Last Admin: 09/24/19 10:59 Dose: 100 mls/hr Lactated Ringer's (Ringers, Lactated) Confirm Administered Dose 1,000 mls @ as directed .ROUTE .STK-MED ONE Stop: 09/23/19 11:56 Lactated Ringer's (Ringers, Lactated) Confirm Administered Dose 1,000 mls @ as directed .ROUTE .STK-MED ONE Stop: 09/23/19 11:56 Iodine (Iodine 2% Mild Tincture) Confirm Administered Dose 30 ml .ROUTE .STK- MED ONE Stop: 09/23/19 11:01 Midazolam HCl (Versed 1 Mg/Ml) Confirm Administered Dose 2 mg .ROUTE .STK-MED ONE Stop: 09/23/19 10:57 Miscellaneous Medication (Phenylephrine 1 Mg/10 Ml-Ns) Confirm Administered Dose 1 mg IV .STK-MED ONE Stop: 09/23/19 12:38 Morphine Sulfate (Morphine) 1 mg IVPUSH ONETIME ONE Stop: 09/23/19 04:00 Last Admin: 09/23/19 04:14 Dose: 1 mg Ondansetron HCl (Zofran) 4 mg IVPUSH ONETIME ONE Stop: 09/22/19 19:47 Last Admin: 09/22/19 19:53 Dose: 4 mg Propofol (Diprivan 20 Ml) Confirm Administered Dose 200 mg .ROUTE .STK-MED ONE Stop: 09/23/19 10:56 Propofol (Diprivan 20 Ml) Confirm Administered Dose 200 mg .ROUTE .STK-MED ONE Stop: 09/23/19 12:32 Tranexamic Acid (Cyklokapron) Confirm Administered Dose 1,000 mg .ROUTE .STK- MED ONE Stop: 09/23/19 11:00 Last Admin: 09/23/19 12:55 Dose: 1,000 mg Vancomycin HCl (Vancomycin) Confirm Administered Dose 1 gm .ROUTE .STK-MED ONE Stop: 09/23/19 11:01 Last Admin: 09/23/19 12:55 Dose: 1 gm - Exam Wound/Incisions: Dressing Dry and Intact General: Alert, Cooperative, No Acute Distress Lungs: Normal Respiratory Effort Extremities: Other (Left thigh soft. NVS intact for BLE. Yee's negative LLE. ) Sepsis Event Note - Evaluation Sepsis Screening Result: No Definite Risk - Focused Exam Vital Signs: Vital Signs Temp Pulse Resp BP Pulse Ox 09/24/19 08:19 97.3 F 62 17 109/69 91 L 09/24/19 03:44 97.9 F 69 20 103/49 L 92 L Date Exam was Performed: 09/24/19 Time Exam was Performed: 12:11 - Problem List Review Problem List Initiated/Reviewed/Updated: Yes - My Orders Last 24 Hours: Active Orders 24 hr Category Date Time Status Notify Provider [RC] ASDIRECTED Care 09/23/19 13:34 Active Pulse Oximetry [RC] ASDIRECTED Care 09/23/19 13:33 Active Vital Signs [RC] Q15M Care 09/23/19 13:33 Inactive Heart Healthy Diet [DIET] Diet 09/23/19 Dinner Active CBC WITH AUTO DIFF [HEME] AM Lab 09/25/19 05:11 Ordered CBC WITH AUTO DIFF [HEME] AM Lab 09/26/19 05:11 Ordered CBC WITH AUTO DIFF [HEME] AM Lab 09/27/19 05:11 Ordered CMP [COMPREHENSIVE METABOLIC PN,CMP] [CHEM] AM Lab 09/25/19 05:11 Ordered CMP [COMPREHENSIVE METABOLIC PN,CMP] [CHEM] AM Lab 09/26/19 05:11 Ordered CMP [COMPREHENSIVE METABOLIC PN,CMP] [CHEM] AM Lab 09/27/19 05:11 Ordered MAGNESIUM [CHEM] AM Lab 09/25/19 05:11 Ordered MAGNESIUM [CHEM] AM Lab 09/26/19 05:11 Ordered MAGNESIUM [CHEM] AM Lab 09/27/19 05:11 Ordered Acetaminophen/oxyCODONE [Percocet 325-5 MG] Med 09/23/19 17:54 Active 1 - 2 tab PO Q4H PRN Apixaban [Eliquis] Med 09/24/19 09:30 Active 2.5 mg PO BID Docusate Sodium [Colace] Med 09/24/19 09:00 Active 100 mg PO BID Lactated Ringers [Ringers, Lactated] 1,000 ml Med 09/24/19 09:00 Active IV ASDIRECTED Morphine Med 09/23/19 17:56 Active 2 mg IVPUSH Q2H PRN Ondansetron [Zofran] Med 09/23/19 17:55 Active 4 mg IVPUSH Q8H PRN Pantoprazole [ProTONIX] Med 09/24/19 07:00 Active 40 mg PO DAILY@0700 Weight bearing status [OM.PC] Routine Oth 09/23/19 13:38 Ordered Medication Orders Acetaminophen (Tylenol) 650 mg RECTAL Q4H PRN PRN Reason: Pain Alprazolam (Xanax) 0.25 mg PO BEDTIME PRN PRN Reason: other Apixaban (Eliquis) 2.5 mg PO BID [facility] Last Admin: 09/24/19 09:40 Dose: 2.5 mg Artificial Tears (Refresh Liquigel 1%) 0 ml EYEBOTH Q4HR PRN PRN Reason: Dry Eyes Last Admin: 09/24/19 09:58 Dose: 1 drop Admin: 09/23/19 16:36 Dose: 1 drop Cyclobenzaprine HCl (Flexeril) 5 mg PO BID PRN PRN Reason: Spasms Docusate Sodium (Colace) 100 mg PO BID [facility] Last Admin: 09/24/19 09:42 Dose: 100 mg Lactated Ringer's (Ringers, Lactated) 1,000 mls @ 125 mls/hr IV ASDIRECTED [facility] Stop: 09/25/19 16:59 Last Admin: 09/24/19 10:59 Dose: 125 mls/hr Metoprolol Succinate (Toprol Xl) 25 mg PO BEDTIME [facility] Last Admin: 09/23/19 21:47 Dose: 25 mg Admin: 09/22/19 22:39 Dose: 25 mg Morphine Sulfate (Morphine) 2 mg IVPUSH Q2H PRN PRN Reason: Breakthrough Pain Naloxone HCl (Narcan) 0.1 mg IVPUSH Q5M PRN PRN Reason: Oversedation Ondansetron HCl (Zofran) 4 mg IVPUSH Q8H PRN PRN Reason: Nausea/Vomiting Last Admin: 09/23/19 18:29 Dose: 4 mg Oxycodone/Acetaminophen (Percocet 325-5 Mg) 1 - 2 tab PO Q4H PRN PRN Reason: Pain Last Admin: 09/24/19 00:21 Dose: 1 tab Pantoprazole Sodium (Protonix) 40 mg PO DAILY@0700 [facility] Last Admin: 09/24/19 06:20 Dose: 40 mg Sodium Chloride 5% 1 (Drop) 0 each EYEBOTH TID [facility] Last Admin: 09/24/19 09:43 Dose: 1 each Admin: 09/23/19 21:49 Dose: 1 each Admin: 09/23/19 16:35 Dose: 1 each Admin: 09/23/19 12:48 Dose: Sodium Chloride (Saline Flush) 10 ml FLUSH ASDIRECTED PRN PRN Reason: Keep Vein Open Last Admin: 09/22/19 18:56 Dose: 10 ml - Assessment Assessment (Free Text/Narrative):: POD#1 - left endoprosthesis for left hip fracture - Plan Plan (Free Text/Narrative):: 1. Eliquis 2.5mg PO BID for VTE prophylaxis. This was discussed with Hospitalist service and pharmacy. 2. WBAT LLE. CHAKA precautions. 3. Discharge to home vs. NH/[facility] for continued therapy. The pt's case was discussed with Dr. Vick.
--- NOTE | 2019-09-24 13:49 | PCM.OPNOTE ---
- General Post-Op/Procedure Note Date of Surgery/Procedure: 09/23/19 Operative Procedure(s): left hip hemiarthroplasty Pre Op Diagnosis: left displaced femoral neck fracture Post-Op Diagnosis: Same Anesthesia Technique: Local, MAC, Spinal Primary Surgeon: Kwabena Vick Anesthesia Provider: Jun Hamilton Utilities Estimator And Drafter: Nancy Jennings Utilities Estimator And Drafter: Shivani Schrader EBL in mLs: 200 Complications: None Condition: Good Free Text/Narrative:: Intake & Output 09/23/19 09/24/19 09/24/19 22:59 06:59 14:59 Intake Total 121 900 120 Output Total 150 Balance 121 750 120 7 stem +0 51mm
--- NOTE | 2019-09-24 15:20 | OR ---
DATE OF OPERATION: 09/23/2019 SURGEON: Kwabena Vick MD OPERATION PERFORMED: Left hip hemiarthroplasty. PREOPERATIVE DIAGNOSIS: Left displaced femoral neck fracture. POSTOPERATIVE DIAGNOSIS: Left displaced femoral neck fracture. ANESTHESIA: Local MAC with spinal. ANESTHESIA PROVIDER: Jun Hamilton CRNA ASSISTANTS: Nancy Jennings PA-C, and Shivani Schrader LPN. ESTIMATED BLOOD LOSS: 200 mL. COMPLICATIONS: None. CONDITION: Stable. IMPLANT: 1. Trisha size 7 Accolade II stem. 2. +0 neck sleeve. 3. 51 mm hemiarthroplasty head. DESCRIPTION OF PROCEDURE: The patient was identified in the preoperative holding area. Proper site was marked and identified by surgeon. The patient was taken back to the operative theater, where after adequate anesthesia, the patient was placed in a right lateral decubitus position. Axillary roll was placed. Pegs were then placed and well padded. The patient's gluteal fold was parallel to the floor. Left hip was then sterilely prepped and draped in the usual sterile fashion. OR time - out was performed. The patient received 2 g of IV Ancef. A standard posterior incision was made. This was taken down to the IT band and gluteal fascia, which was incised along the incisional length. The patient did have significant amount of soft tissue, so was rather deep incision making it more difficult. At this time, short external rotators were identified and takedown of short external rotators done down to the level of the lesser trochanter. Again, the patient was significantly obese making visualization more difficult. Once the capsulotomy was performed, the fracture was identified and the head was rotated. The bone hook and then the corkscrew were then used for removal of the femoral head. I did have to do a clean-up cut at this point. I got a direct visualization of the acetabulum. There were no signs of acetabular wear or loose bodies in the acetabulum. At this time, it was decided the patient will undergo a hemiarthroplasty. A box chisel was used out laterally. Starter awl was placed down the canal. Starting with the 0 broach, I was able to broach up to a size 7 which was found to be rotationally and vertically stable. We trialed a -4 neck sleeve with a 51 head and was found to be just a minor amount short, so we used a +0 and was found to have adequate range of motion throughout and equal leg lengths. Trial components were then removed. The size 7 Accolade II stem was impacted in place and 0 neck sleeve was impacted in place and then the 51 mm hemiarthroplasty head. These were all then reduced. A #5 Ethibond suture was used for closure of the posterior capsule. 1 L dilute Betadine solution and 3 L of pulse lavage irrigation with Ancef were irrigated through the hip. Topical tranexamic acid and vancomycin powder were applied. A #2 barbed suture was used for closure of the IT band and gluteal fascia. 0 Vicryl then had to be used for closure of all the deep layers as the patient was significantly obese. Next, 2-0 Vicryl was used subcutaneously and Prineo was used for the skin. The patient tolerated the procedure well and sent to PACU in stable condition. MMODAL /[id number] ANGELA
[2019-09-24] MEDS: Metoprolol Succinate 25 MG Tab.ER PO SCH (20:42)
[2019-09-24] MEDS: ALPRAZolam 0.25 MG Tab PO PRN (22:07)
[2019-09-25] MEDS: Pantoprazole 40 MG Tab.CR PO SCH (06:53)
[2019-09-25] MEDS: Sodium Chloride 0.9% 1,000 ML IV SCH ×2 (09:04→23:45)
[2019-09-25] MEDS: Sodium Chloride/Potassium Chloride Tab PO SCH ×3 (09:04→20:07)
[2019-09-25] MEDS: Apixaban 2.5 MG Tab PO SCH ×2 (09:05→20:07)
[2019-09-25] MEDS: Docusate Sodium 100 MG Cap PO SCH ×2 (09:05→20:07)
[2019-09-25] MEDS: Magnesium Sulfate/Water 2 GM in Premix Bag 1 BAG IV ONE ×2 (09:05→09:13)
[2019-09-25] MEDS: SODIUM CHLORIDE 5% EYEBOTH SCH ×3 (09:06→20:07)
[2019-09-25] MEDS: Carboxymethylcellulose Sodium 1% Ophth Gel 15 ML Bottle EYEBOTH PRN ×2 (09:06→18:02)
[2019-09-25] MEDS: Acetaminophen/oxyCODONE 325-5 MG Tab PO PRN ×2 (12:22→20:08)
--- NOTE | 2019-09-25 13:49 | PCM.PN ---
- General Info Date of Service: 09/25/19 Admission Dx/Problem (Free Text): Admission Diagnosis/Problem Admission Diagnosis/Problem Hip fracture requiring operative repair Subjective Update: Patient states that she is doing well. She has decreased appetite. She had a bowel movement. Pain is well controlled with medication. Physical therapy has been in to see her. - Review of Systems General: Reports: No Symptoms HEENT: Reports: No Symptoms Pulmonary: Reports: No Symptoms Cardiovascular: Reports: No Symptoms Musculoskeletal: Reports: No Symptoms Psychiatric: Reports: No Symptoms - Patient Data Vitals - Most Recent: Last Vital Signs Temp 97.3 F 09/25/19 08:17 Pulse 61 09/25/19 08:17 Resp 16 09/25/19 08:17 BP 117/68 09/25/19 08:17 Pulse Ox 94 L 09/25/19 08:17 Weight - Most Recent: 194 lb 4.8 oz I&O - Last 24 Hours: Intake & Output 09/24/19 09/25/19 09/25/19 22:59 06:59 14:59 Intake Total 1572 800 360 Output Total 225 400 Balance 1347 400 360 Lab Results Last 24 Hours: Laboratory Results - last 24 hr 09/25/19 09/25/19 Range/Units 06:30 06:30 WBC 8.78 (3.98-10.04) K/mm3 RBC 3.79 L (3.98-5.22) M/mm3 Hgb 11.3 (11.2-15.7) gm/dl Hct 33.5 L (34.1-44.9) % MCV 88.4 (79.4-94.8) fl MCH 29.8 (25.6-32.2) pg MCHC 33.7 (32.2-35.5) g/dl RDW Std Deviation 46.1 (36.4-46.3) fL Plt Count 90 L (182-369) K/mm3 MPV 10.0 (9.4-12.3) fl Neut % (Auto) 81.0 H (34.0-71.1) % Lymph % (Auto) 7.2 L (19.3-51.7) % [place] % (Auto) 9.9 (4.7-12.5) % Eos % (Auto) 1.5 (0.7-5.8) Baso % (Auto) 0.1 (0.1-1.2) % Neut # (Auto) 7.11 H (1.56-6.13) K/mm3 Lymph # (Auto) 0.63 L (1.18-3.74) K/mm3 [place] # (Auto) 0.87 H (0.24-0.36) K/mm3 Eos # (Auto) 0.13 (0.04-0.36) K/mm3 Baso # (Auto) 0.01 (0.01-0.08) K/mm3 Manual Slide Review Abnormal smear Sodium 124 L (136-145) mEq/L Potassium 3.9 (3.5-5.1) mEq/L Chloride 91 L (98-107) mEq/L Carbon Dioxide 25 (21-32) mEq/L Anion Gap 11.9 (5-15) BUN 22 H (7-18) mg/dL Creatinine 1.1 H (0.55-1.02) mg/dL Est Cr Clr Drug Dosing 38.40 mL/min Estimated GFR (MDRD) 47 (>60) mL/min BUN/Creatinine Ratio 20.0 H (14-18) Glucose 130 H (83-115) mg/dL Calcium 8.7 (8.5-10.1) mg/dL Magnesium 1.7 L (1.8-2.4) mg/dl Total Bilirubin 1.8 H (0.2-1.0) mg/dL AST 52 H (15-37) U/L ALT 23 (14-59) U/L Alkaline Phosphatase 117 H (46-116) U/L Total Protein 6.2 L (6.4-8.2) g/dl Albumin 2.8 L (3.4-5.0) g/dl Globulin 3.4 gm/dL Albumin/Globulin Ratio 0.8 L (1-2) Med Orders - Current: Current Medications Acetaminophen (Tylenol) 650 mg RECTAL Q4H PRN PRN Reason: Pain Alprazolam (Xanax) 0.25 mg PO BEDTIME PRN PRN Reason: other Last Admin: 09/24/19 22:07 Dose: 0.25 mg Apixaban (Eliquis) 2.5 mg PO BID LISA Last Admin: 09/25/19 09:05 Dose: 2.5 mg Artificial Tears (Refresh Liquigel 1%) 0 ml EYEBOTH Q4HR PRN PRN Reason: Dry Eyes Last Admin: 09/24/19 20:44 Dose: 1 drop Cyclobenzaprine HCl (Flexeril) 5 mg PO BID PRN PRN Reason: Spasms Docusate Sodium (Colace) 100 mg PO BID [facility] Last Admin: 09/25/19 09:05 Dose: 100 mg Sodium Chloride (Normal Saline) 1,000 mls @ 75 mls/hr IV ASDIRECTED [facility], [facility] Last Admin: 09/25/19 09:04 Dose: 75 mls/hr Metoprolol Succinate (Toprol Xl) 25 mg PO BEDTIME [facility] Last Admin: 09/24/19 20:42 Dose: 25 mg Morphine Sulfate (Morphine) 2 mg IVPUSH Q2H PRN PRN Reason: Breakthrough Pain Naloxone HCl (Narcan) 0.1 mg IVPUSH Q5M PRN PRN Reason: Oversedation Non-Formulary Medication (Nf Drug) 1 each PO DAILY [facility] Ondansetron HCl (Zofran) 4 mg IVPUSH Q8H PRN PRN Reason: Nausea/Vomiting Last Admin: 09/23/19 18:29 Dose: 4 mg Oral Electrolytes (Thermotabs) 1 each PO TID [facility] Last Admin: 09/25/19 09:04 Dose: 1 each Oxycodone/Acetaminophen (Percocet 325-5 Mg) 1 - 2 tab PO Q4H PRN PRN Reason: Pain Last Admin: 09/25/19 12:22 Dose: 2 tab Pantoprazole Sodium (Protonix) 40 mg PO DAILY@0700 [facility] Last Admin: 09/25/19 06:53 Dose: 40 mg Sodium Chloride 5% 1 (Drop) 0 each EYEBOTH TID [facility] Last Admin: 09/25/19 09:06 Dose: 1 each Sodium Chloride (Saline Flush) 10 ml FLUSH ASDIRECTED PRN PRN Reason: Keep Vein Open Last Admin: 09/22/19 18:56 Dose: 10 ml Discontinued Medications Acetaminophen (Tylenol) 975 mg PO NOW ONE Stop: 09/22/19 18:54 Last Admin: 09/22/19 18:56 Dose: 975 mg Acetaminophen (Tylenol) Confirm Administered Dose 975 mg .ROUTE .STK-MED ONE Stop: 09/22/19 18:55 Last Admin: 09/22/19 22:40 Dose: Not Given Acetaminophen (Tylenol) 650 mg PO NOW ONE Stop: 09/23/19 01:02 Last Admin: 09/23/19 01:15 Dose: 650 mg Alprazolam (Xanax) 0.25 mg PO BEDTIME PRN PRN Reason: Sleep Last Admin: 09/22/19 22:39 Dose: 0.25 mg Bupivacaine HCl (Sensorcaine-Mpf 0.25%) Confirm Administered Dose 30 ml .ROUTE .STK-MED ONE Stop: 09/23/19 11:01 Last Admin: 09/23/19 12:53 Dose: 30 ml Cefazolin Sodium (Ancef) Confirm Administered Dose 2 gm .ROUTE .STK-MED ONE Stop: 09/23/19 10:57 Last Admin: 09/23/19 12:49 Dose: 2 gm Cefazolin Sodium (Ancef) Confirm Administered Dose 2 gm .ROUTE .STK-MED ONE Stop: 09/23/19 11:01 Morphine Sulfate 8 mg/Epinephrine HCl 0.3 mg/Cefuroxime Sodium 750 mg/Ketorolac Tromethamine 30 mg/Sodium Chloride 7.9 ml 0 mg .XX ONETIME ONE Stop: 09/23/19 07:31 Last Admin: 09/23/19 12:54 Dose: 788.3 mg Fentanyl (Sublimaze) Confirm Administered Dose 100 mcg .ROUTE .STK-MED ONE Stop: 09/23/19 10:56 Sodium Chloride (Normal Saline) 1,000 mls @ 75 mls/hr IV ASDIRECTED [facility] Last Admin: 09/23/19 01:11 Dose: 75 mls/hr Cefazolin Sodium/Dextrose 2 gm (/ Premix) 50 mls @ 100 mls/hr IV Q8H [facility] Stop: 09/24/19 11:29 Last Admin: 09/24/19 10:59 Dose: 100 mls/hr Lactated Ringer's (Ringers, Lactated) Confirm Administered Dose 1,000 mls @ as directed .ROUTE .STK-MED ONE Stop: 09/23/19 11:56 Lactated Ringer's (Ringers, Lactated) Confirm Administered Dose 1,000 mls @ as directed .ROUTE .STK-MED ONE Stop: 09/23/19 11:56 Lactated Ringer's (Ringers, Lactated) 1,000 mls @ 125 mls/hr IV ASDIRECTED [facility] Stop: 09/25/19 16:59 Last Admin: 09/24/19 10:59 Dose: 125 mls/hr Magnesium Sulfate 2 gm/ Premix 50 mls @ 25 mls/hr IV ONETIME ONE Stop: 09/25/19 10:34 Last Admin: 09/25/19 09:13 Dose: 25 mls/hr Iodine (Iodine 2% Mild Tincture) Confirm Administered Dose 30 ml .ROUTE .STK- MED ONE Stop: 09/23/19 11:01 Midazolam HCl (Versed 1 Mg/Ml) Confirm Administered Dose 2 mg .ROUTE .STK-MED ONE Stop: 09/23/19 10:57 Miscellaneous Medication (Phenylephrine 1 Mg/10 Ml-Ns) Confirm Administered Dose 1 mg IV .STK-MED ONE Stop: 09/23/19 12:38 Morphine Sulfate (Morphine) 1 mg IVPUSH ONETIME ONE Stop: 09/23/19 04:00 Last Admin: 09/23/19 04:14 Dose: 1 mg Ondansetron HCl (Zofran) 4 mg IVPUSH ONETIME ONE Stop: 09/22/19 19:47 Last Admin: 09/22/19 19:53 Dose: 4 mg Propofol (Diprivan 20 Ml) Confirm Administered Dose 200 mg .ROUTE .STK-MED ONE Stop: 09/23/19 10:56 Propofol (Diprivan 20 Ml) Confirm Administered Dose 200 mg .ROUTE .STK-MED ONE Stop: 09/23/19 12:32 Tranexamic Acid (Cyklokapron) Confirm Administered Dose 1,000 mg .ROUTE .STK- MED ONE Stop: 09/23/19 11:00 Last Admin: 09/23/19 12:55 Dose: 1,000 mg Vancomycin HCl (Vancomycin) Confirm Administered Dose 1 gm .ROUTE .STK-MED ONE Stop: 09/23/19 11:01 Last Admin: 09/23/19 12:55 Dose: 1 gm - Exam Quality Assessment: No: Supplemental Oxygen General: Alert HEENT: Pupils Equal, Mucous Membr. Moist/[place] Neck: Supple Lungs: Clear to Auscultation, Normal Respiratory Effort Cardiovascular: Regular Rate, Regular Rhythm GI/Abdominal Exam: Normal Bowel Sounds, Soft, Non-Tender, No Organomegaly, No Distention Extremities: Normal Inspection, Normal Range of Motion, Non-Tender, No Pedal Edema, Normal Capillary Refill Skin: Warm, Dry, Intact Psy/Mental Status: Alert, Normal Affect, Normal Mood Sepsis Event Note - Evaluation Sepsis Screening Result: No Definite Risk - Focused Exam Vital Signs: Vital Signs Temp Pulse Resp BP Pulse Ox Pulse Ox 09/25/19 08:17 97.3 F 61 16 117/68 94 L 09/25/19 07:00 94 L 09/25/19 04:20 98.6 F 62 16 128/64 95 Date Exam was Performed: 09/25/19 Time Exam was Performed: 13:44 - Problem List Review Problem List Initiated/Reviewed/Updated: Yes - My Orders Last 24 Hours: My Active Orders 09/25/19 08:45 Sodium Chloride 0.9% [Normal Saline] 1,000 ml IV ASDIRECTED 09/25/19 09:00 Sodium Chloride/KCl [Thermotabs] 1 each PO TID 09/25/19 11:40 CORONAVIRUS COVID-19 PCR PHL Urgent 09/26/19 09:00 Non-Formulary Medication [NF Drug] 1 each PO DAILY - Plan Plan:: Assessment 83-year-old female who fell in her yard sustained a left femoral neck fracture. 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 Hyponatremia * Sodium 129-->132-->130-->124 * NS at 75 mL an hour --> restart * Start Thermotabs * Check CMP in the morning * History of mild chronic hyponatremia in the low 130s Chronic atrial fibrillation, ventricularly paced, without anticoagulation * Patient has a history of peptic ulcer disease * She is intolerant of Xarelto and Coumadin * Takes a low-dose baby aspirin * On metoprolol XL 25 mg at night Hypertension * On metoprolol, losartan, hydrochlorothiazide, and Lasix Acute Kidney Injury * BUN 17-->14-->22-->22 * Creatinine 1.0-->0.9-->1.4-->1.1 * GFR 53-->60-->36-->47 * Likely 2/2 poor oral intake and anesthesia * IV fluids as directed * Caution with baseline CHF Plan * Admit to medical floor on telemetry * Start Thermotabs * Continue to hold losartan, hydrochlorothiazide, and Lasix in the morning * CMP, CBC, and magnesium in the morning * PT/OT -> recommending SNF rehab stay * VTE prophylaxis with SCDs * CODE STATUS: DNR/DNI * CM/SW consult * Length of stay greater than 96 hours due to SNF placement
[2019-09-25] MEDS: Metoprolol Succinate 25 MG Tab.ER PO SCH (20:07)
[2019-09-25] MEDS: ALPRAZolam 0.25 MG Tab PO PRN (20:31)
[2019-09-26] MEDS: Pantoprazole 40 MG Tab.CR PO SCH (06:07)
[2019-09-26] MEDS: Sodium Chloride/Potassium Chloride Tab PO SCH ×3 (08:14→20:21)
[2019-09-26] MEDS: Apixaban 2.5 MG Tab PO SCH ×2 (08:14→20:21)
[2019-09-26] MEDS: Docusate Sodium 100 MG Cap PO SCH ×2 (08:14→20:22)
[2019-09-26] MEDS: Carboxymethylcellulose Sodium 1% Ophth Gel 15 ML Bottle EYEBOTH PRN ×2 (08:20→20:27)
[2019-09-26] MEDS: SODIUM CHLORIDE 5% EYEBOTH SCH ×3 (08:21→20:27)
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
[2019-09-26] MEDS: Metoprolol Succinate 25 MG Tab.ER PO SCH (20:21)
[2019-09-26] MEDS: Acetaminophen/oxyCODONE 325-5 MG Tab PO PRN (20:22)
[2019-09-26] MEDS: ALPRAZolam 0.25 MG Tab PO PRN (20:23)
[2019-09-26] MEDS ORDERED: Ondansetron 4 MG Tab.DIS PO PRN (22:34)
[2019-09-27] MEDS: Pantoprazole 40 MG Tab.CR PO SCH (06:29)
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
[2019-09-27] MEDS: SODIUM CHLORIDE 5% EYEBOTH SCH ×3 (09:19→20:34)
[2019-09-27] MEDS: Docusate Sodium 100 MG Cap PO SCH ×2 (09:20→20:34)
[2019-09-27] MEDS: Apixaban 2.5 MG Tab PO SCH ×2 (09:21→20:33)
[2019-09-27] MEDS: Sodium Chloride/Potassium Chloride Tab PO SCH ×3 (09:21→20:34)
[2019-09-27] MEDS: Saccharomyces Boulardii (Probiotic) 250 MG Cap PO SCH (09:22)
[2019-09-27] MEDS: Carboxymethylcellulose Sodium 1% Ophth Gel 15 ML Bottle EYEBOTH PRN ×2 (09:23→14:47)
--- NOTE | 2019-09-27 11:13 | PCM.SURGPN ---
- General Info Date of Service: 09/27/19 POD#: 4 Functional Status: Reports: Pain Controlled, Tolerating Diet, Ambulating, Urinating, Incentive Spirometry, Other (The pt states she is doing well.) - Patient Data Vitals - Most Recent: Last Vital Signs Temp 97.7 F 09/27/19 07:42 Pulse 66 09/27/19 07:42 Resp 20 09/27/19 07:42 BP 116/75 09/27/19 07:42 Pulse Ox 97 09/27/19 07:42 Weight - Most Recent: 198 lb 9.6 oz I&O - Last 24 Hours: Intake & Output 09/26/19 09/27/19 09/27/19 22:59 06:59 14:59 Intake Total 1703 800 180 Output Total 400 Balance 1703 400 180 Lab Results Last 24 Hrs: Laboratory Results - last 24 hr 09/25/19 09/27/19 09/27/19 Range/Units 11:40 05:44 05:44 WBC 5.12 (3.98-10.04) K/mm3 RBC 3.40 L (3.98-5.22) M/mm3 Hgb 10.2 L (11.2-15.7) gm/dl Hct 30.5 L (34.1-44.9) % MCV 89.7 (79.4-94.8) fl MCH 30.0 (25.6-32.2) pg MCHC 33.4 (32.2-35.5) g/dl RDW Std Deviation 46.7 H (36.4-46.3) fL Plt Count 110 L (182-369) K/mm3 MPV 10.1 (9.4-12.3) fl Neut % (Auto) 69.7 (34.0-71.1) % Lymph % (Auto) 12.1 L (19.3-51.7) % [place] % (Auto) 13.1 H (4.7-12.5) % Eos % (Auto) 4.5 (0.7-5.8) Baso % (Auto) 0.2 (0.1-1.2) % Neut # (Auto) 3.57 (1.56-6.13) K/mm3 Lymph # (Auto) 0.62 L (1.18-3.74) K/mm3 [place] # (Auto) 0.67 H (0.24-0.36) K/mm3 Eos # (Auto) 0.23 (0.04-0.36) K/mm3 Baso # (Auto) 0.01 (0.01-0.08) K/mm3 Sodium 132 L (136-145) mEq/L Potassium 3.8 (3.5-5.1) mEq/L Chloride 97 L (98-107) mEq/L Carbon Dioxide 26 (21-32) mEq/L Anion Gap 12.8 (5-15) BUN 16 (7-18) mg/dL Creatinine 0.9 (0.55-1.02) mg/dL Est Cr Clr Drug Dosing 46.94 mL/min Estimated GFR (MDRD) 60 (>60) mL/min BUN/Creatinine Ratio 17.8 (14-18) Glucose 97 (83-115) mg/dL Calcium 8.0 L (8.5-10.1) mg/dL Magnesium 1.8 (1.8-2.4) mg/dl Total Bilirubin 1.5 H (0.2-1.0) mg/dL AST 41 H (15-37) U/L ALT 24 (14-59) U/L Alkaline Phosphatase 133 H (46-116) U/L Total Protein 5.7 L (6.4-8.2) g/dl Albumin 2.5 L (3.4-5.0) g/dl Globulin 3.2 gm/dL Albumin/Globulin Ratio 0.8 L (1-2) COVID-19 PCR Not detected (NOT DETECT) Med Orders - Current: Current Medications Acetaminophen (Tylenol) 650 mg RECTAL Q4H PRN PRN Reason: Pain Alprazolam (Xanax) 0.25 mg PO BEDTIME PRN PRN Reason: other Last Admin: 09/26/19 20:23 Dose: 0.25 mg Apixaban (Eliquis) 2.5 mg PO BID [facility] Last Admin: 09/27/19 09:21 Dose: 2.5 mg Artificial Tears (Refresh Liquigel 1%) 0 ml EYEBOTH Q4HR PRN PRN Reason: Dry Eyes Last Admin: 09/27/19 09:23 Dose: 1 drop Cyclobenzaprine HCl (Flexeril) 5 mg PO BID PRN PRN Reason: Spasms Docusate Sodium (Colace) 100 mg PO BID [facility] Last Admin: 09/27/19 09:20 Dose: 100 mg Metoprolol Succinate (Toprol Xl) 25 mg PO BEDTIME [facility] Last Admin: 09/26/19 20:21 Dose: 25 mg Ondansetron HCl (Zofran Odt) 4 mg PO Q8H PRN PRN Reason: Nausea/Vomiting Oral Electrolytes (Thermotabs) 1 each PO TID [facility] Last Admin: 09/27/19 09:21 Dose: 1 each Oxycodone/Acetaminophen (Percocet 325-5 Mg) 1 - 2 tab PO Q4H PRN PRN Reason: Pain Last Admin: 09/26/19 20:22 Dose: 1 tab Pantoprazole Sodium (Protonix) 40 mg PO DAILY@0700 [facility] Last Admin: 09/27/19 06:29 Dose: 40 mg Sodium Chloride 5% 1 (Drop) 0 each EYEBOTH TID [facility] Last Admin: 09/27/19 09:19 Dose: 1 each Saccharomyces Boulardii (Florastor) 250 mg PO DAILY [facility] Last Admin: 09/27/19 09:22 Dose: 250 mg Discontinued Medications Acetaminophen (Tylenol) 975 mg PO NOW ONE Stop: 09/22/19 18:54 Last Admin: 09/22/19 18:56 Dose: 975 mg Acetaminophen (Tylenol) Confirm Administered Dose 975 mg .ROUTE .STK-MED ONE Stop: 09/22/19 18:55 Last Admin: 09/22/19 22:40 Dose: Not Given Acetaminophen (Tylenol) 650 mg PO NOW ONE Stop: 09/23/19 01:02 Last Admin: 09/23/19 01:15 Dose: 650 mg Alprazolam (Xanax) 0.25 mg PO BEDTIME PRN PRN Reason: Sleep Last Admin: 09/22/19 22:39 Dose: 0.25 mg Bupivacaine HCl (Sensorcaine-Mpf 0.25%) Confirm Administered Dose 30 ml .ROUTE .STK-MED ONE Stop: 09/23/19 11:01 Last Admin: 09/23/19 12:53 Dose: 30 ml Cefazolin Sodium (Ancef) Confirm Administered Dose 2 gm .ROUTE .STK-MED ONE Stop: 09/23/19 10:57 Last Admin: 09/23/19 12:49 Dose: 2 gm Cefazolin Sodium (Ancef) Confirm Administered Dose 2 gm .ROUTE .[facility] ONE Stop: 09/23/19 11:01 Morphine Sulfate 8 mg/Epinephrine HCl 0.3 mg/Cefuroxime Sodium 750 mg/Ketorolac Tromethamine 30 mg/Sodium Chloride 7.9 ml 0 mg .XX ONETIME ONE Stop: 09/23/19 07:31 Last Admin: 09/23/19 12:54 Dose: 788.3 mg Fentanyl (Sublimaze) Confirm Administered Dose 100 mcg .ROUTE .[facility] ONE Stop: 09/23/19 10:56 Sodium Chloride (Normal Saline) 1,000 mls @ 75 [facility]ls[facility] Last Admin: 09/23/19 01:11 Dose: 75 mls/hr Cefazolin Sodium/Dextrose 2 gm (/ Premix) 50 mls @ 100 mls/hr IV Q8H [facility] Stop: 09/24/19 11:29 Last Admin: 09/24/19 10:59 Dose: 100 mls/hr Lactated Ringer's (Ringers, Lactated) Confirm Administered Dose 1,000 mls @ as directed .ROUTE .[facility] ONE Stop: 09/23/19 11:56 Lactated Ringer's (Ringers, Lactated) Confirm Administered Dose 1,000 mls @ as directed .ROUTE .[facility] ONE Stop: 09/23/19 11:56 Lactated Ringer's (Ringers, Lactated) 1,000 mls @ 125 mls/hr IV [facility] Stop: 09/25/19 16:59 Last Admin: 09/24/19 10:59 Dose: 125 mls/hr Sodium Chloride (Normal Saline) 1,000 mls @ [facility] Last Admin: 09/25/19 23:45 Dose: 75 mls/hr Magnesium Sulfate 2 gm/ Premix 50 mls @ 25 mls/hr IV ONETIME ONE Stop: 09/25/19 10:34 Last Admin: 09/25/19 09:13 Dose: 25 mls/hr Iodine (Iodine 2% Mild Tincture) Confirm Administered Dose 30 ml .ROUTE .[facility] ONE Stop: 09/23/19 11:01 Midazolam HCl (Versed 1 Mg/Ml) Confirm Administered Dose 2 mg .ROUTE .STK-MED ONE Stop: 09/23/19 10:57 Miscellaneous Medication (Phenylephrine 1 Mg/10 Ml-Ns) Confirm Administered Dose 1 mg IV .STK-MED ONE Stop: 09/23/19 12:38 Morphine Sulfate (Morphine) 1 mg IVPUSH ONETIME ONE Stop: 09/23/19 04:00 Last Admin: 09/23/19 04:14 Dose: 1 mg Morphine Sulfate (Morphine) 2 mg IVPUSH Q2H PRN PRN Reason: Breakthrough Pain Naloxone HCl (Narcan) 0.1 mg IVPUSH Q5M PRN PRN Reason: Oversedation Ondansetron HCl (Zofran) 4 mg IVPUSH ONETIME ONE Stop: 09/22/19 19:47 Last Admin: 09/22/19 19:53 Dose: 4 mg Ondansetron HCl (Zofran) 4 mg IVPUSH Q8H PRN PRN Reason: Nausea/Vomiting Last Admin: 09/23/19 18:29 Dose: 4 mg Propofol (Diprivan 20 Ml) Confirm Administered Dose 200 mg .ROUTE .STK-MED ONE Stop: 09/23/19 10:56 Propofol (Diprivan 20 Ml) Confirm Administered Dose 200 mg .ROUTE .STK-MED ONE Stop: 09/23/19 12:32 Sodium Chloride (Saline Flush) 10 ml FLUSH ASDIRECTED PRN PRN Reason: Keep Vein Open Last Admin: 09/22/19 18:56 Dose: 10 ml Tranexamic Acid (Cyklokapron) Confirm Administered Dose 1,000 mg .ROUTE .STK- MED ONE Stop: 09/23/19 11:00 Last Admin: 09/23/19 12:55 Dose: 1,000 mg Vancomycin HCl (Vancomycin) Confirm Administered Dose 1 gm .ROUTE .STK-MED ONE Stop: 09/23/19 11:01 Last Admin: 09/23/19 12:55 Dose: 1 gm - Exam Wound/Incisions: Other (No bleeding on bandage noted. ) General: Alert, Cooperative, No Acute Distress Extremities: Other (Able to stand with use of grab bar while showering.) Sepsis Event Note - Evaluation Sepsis Screening Result: No Definite Risk - Focused Exam Vital Signs: Vital Signs Temp Pulse Resp BP Pulse Ox 09/27/19 07:42 97.7 F 66 20 116/75 97 09/27/19 04:52 98.4 F 61 16 117/67 93 L 09/27/19 00:37 97.9 F 52 L 16 110/71 94 L Date Exam was Performed: 09/27/19 Time Exam was Performed: 11:11 - Problem List Review Problem List Initiated/Reviewed/Updated: Yes - My Orders Last 24 Hours: Active Orders 24 hr Category Date Time Status Communication Order [] Care 09/26/19 22:33 Active Dressing Change [Wound Care] [] DAILY Care 09/27/19 11:10 Ordered Ondansetron [Zofran ODT] Med 09/26/19 22:34 Active 4 mg PO Q8H PRN Saccharomyces Boulardii [Florastor] Med 09/27/19 09:00 Active 250 mg PO DAILY Medication Orders Acetaminophen (Tylenol) 650 mg RECTAL Q4H PRN PRN Reason: Pain Alprazolam (Xanax) 0.25 mg PO BEDTIME PRN PRN Reason: other Last Admin: 09/26/19 20:23 Dose: 0.25 mg Admin: 09/25/19 20:31 Dose: 0.25 mg Admin: 09/24/19 22:07 Dose: 0.25 mg Apixaban (Eliquis) 2.5 mg PO BID [facility] Last Admin: 09/27/19 09:21 Dose: 2.5 mg Admin: 09/26/19 20:21 Dose: 2.5 mg Admin: 09/26/19 08:14 Dose: 2.5 mg Admin: 09/25/19 20:07 Dose: 2.5 mg Admin: 09/25/19 09:05 Dose: 2.5 mg Admin: 09/24/19 20:39 Dose: 2.5 mg Admin: 09/24/19 09:40 Dose: 2.5 mg Artificial Tears (Refresh Liquigel 1%) 0 ml EYEBOTH Q4HR PRN PRN Reason: Dry Eyes Last Admin: 09/27/19 09:23 Dose: 1 drop Admin: 09/26/19 20:27 Dose: 1 drop Admin: 09/26/19 08:20 Dose: 1 drop Admin: 09/25/19 18:02 Dose: 1 drop Admin: 09/25/19 09:06 Dose: 1 drop Admin: 09/24/19 20:44 Dose: 1 drop Admin: 09/24/19 14:15 Dose: 1 drop Admin: 09/24/19 09:58 Dose: 1 drop Admin: 09/23/19 16:36 Dose: 1 drop Cyclobenzaprine HCl (Flexeril) 5 mg PO BID PRN PRN Reason: Spasms Docusate Sodium (Colace) 100 mg PO BID [facility] Last Admin: 09/27/19 09:20 Dose: 100 mg Admin: 09/26/19 20:22 Dose: 100 mg Admin: 09/26/19 08:14 Dose: 100 mg Admin: 09/25/19 20:07 Dose: 100 mg Admin: 09/25/19 09:05 Dose: 100 mg Admin: 09/24/19 20:39 Dose: 100 mg Admin: 09/24/19 09:42 Dose: 100 mg Metoprolol Succinate (Toprol Xl) 25 mg PO BEDTIME [facility] Last Admin: 09/26/19 20:21 Dose: 25 mg Admin: 09/25/19 20:07 Dose: 25 mg Admin: 09/24/19 20:42 Dose: 25 mg Admin: 09/23/19 21:47 Dose: 25 mg Admin: 09/22/19 22:39 Dose: 25 mg Ondansetron HCl (Zofran Odt) 4 mg PO Q8H PRN PRN Reason: Nausea/Vomiting Oral Electrolytes (Thermotabs) 1 each PO TID [facility] Last Admin: 09/27/19 09:21 Dose: 1 each Admin: 09/26/19 20:21 Dose: 1 each Admin: 09/26/19 15:15 Dose: 1 each Admin: 09/26/19 08:14 Dose: 1 each Admin: 09/25/19 20:07 Dose: 1 each Admin: 09/25/19 16:00 Dose: 1 each Admin: 09/25/19 09:04 Dose: 1 each Oxycodone/Acetaminophen (Percocet 325-5 Mg) 1 - 2 tab PO Q4H PRN PRN Reason: Pain Last Admin: 09/26/19 20:22 Dose: 1 tab Admin: 09/25/19 20:08 Dose: 1 tab Admin: 09/25/19 12:22 Dose: 2 tab Admin: 09/24/19 20:44 Dose: 1 tab Admin: 09/24/19 00:21 Dose: 1 tab Pantoprazole Sodium (Protonix) 40 mg PO DAILY@0700 [facility] Last Admin: 09/27/19 06:29 Dose: 40 mg Admin: 09/26/19 06:07 Dose: 40 mg Admin: 09/25/19 06:53 Dose: 40 mg Admin: 09/24/19 06:20 Dose: 40 mg Sodium Chloride 5% 1 (Drop) 0 each EYEBOTH TID [facility] Last Admin: 09/27/19 09:19 Dose: 1 each Admin: 09/26/19 20:27 Dose: 1 each Admin: 09/26/19 15:15 Dose: 1 each Admin: 09/26/19 08:21 Dose: 1 each Admin: 09/25/19 20:07 Dose: 1 each Admin: 09/25/19 16:00 Dose: 1 each Admin: 09/25/19 09:06 Dose: 1 each Admin: 09/24/19 20:43 Dose: 1 each Admin: 09/24/19 14:15 Dose: 1 each Admin: 09/24/19 09:43 Dose: 1 each Admin: 09/23/19 21:49 Dose: 1 each Admin: 09/23/19 16:35 Dose: 1 each Admin: 09/23/19 12:48 Dose: Saccharomyces Boulardii (Florastor) 250 mg PO DAILY [facility] Last Admin: 09/27/19 09:22 Dose: 250 mg - Assessment Assessment (Free Text/Narrative):: POD#4 - s/p left hip endoprosthesis - Plan Plan (Free Text/Narrative):: 1. The pt will d[place]c to [place] today. 2. Eliquis BID x 35 days total. TEDs, frequent mobility. 3. [facility]. 4. WBAT. CHAKA precautions. The pt's case was discussed with Dr. Vick.
[2019-09-27] MEDS: Acetaminophen/oxyCODONE 325-5 MG Tab PO PRN (14:49)
[2019-09-27] MEDS ORDERED: Magnesium Hydroxide 400 MG/5 ML Susp 30 ML Cup PO ONE (16:15)
[2019-09-27] MEDS: Metoprolol Succinate 25 MG Tab.ER PO SCH (20:45)
[2019-09-27] MEDS: ALPRAZolam 0.25 MG Tab PO PRN (22:51)
[2019-09-28] MEDS: Pantoprazole 40 MG Tab.CR PO SCH (06:48)
[2019-09-28] MEDS ORDERED: Furosemide 20 MG Tab PO SCH (09:00)
[2019-09-28] MEDS: Docusate Sodium 100 MG Cap PO SCH (09:42)
[2019-09-28] MEDS: Sodium Chloride/Potassium Chloride Tab PO SCH (09:42)
[2019-09-28] MEDS: Apixaban 2.5 MG Tab PO SCH (09:43)
[2019-09-28] MEDS: SODIUM CHLORIDE 5% EYEBOTH SCH (09:43)
[2019-09-28] MEDS: Saccharomyces Boulardii (Probiotic) 250 MG Cap PO SCH (09:43)
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
[2019-09-28] MEDS: Carboxymethylcellulose Sodium 1% Ophth Gel 15 ML Bottle EYEBOTH PRN (10:15)
[2019-09-28 11:06] VITALS: BP 139/71; PULSE 81
== END 2019-09-28 12:35 | DRG 470 ==
LOC: JD.ED 17:20 → JD.MS 18:59
PROVIDERS: ADMIT Family Medicine; ATTEND Family Medicine
PROC: 0SRS0JZ Replacement of Left Hip Joint, Femoral Surface with Synthetic Substitute, Open Approach (ICD-10-PCS; principal; 2019-09-23)
DX: S72.002A Fracture of unspecified part of neck of left femur, initial encounter for closed fracture (principal); W18.39XA Other fall on same level, initial encounter; E87.1 Hypo-osmolality and hyponatremia; I48.91 Unspecified atrial fibrillation; I48.20 Chronic atrial fibrillation, unspecified; N17.9 Acute kidney failure, unspecified; E78.00 Pure hypercholesterolemia, unspecified; I25.10 Atherosclerotic heart disease of native coronary artery without angina pectoris; I10 Essential (primary) hypertension; K21.9 Gastro-esophageal reflux disease without esophagitis; F41.9 Anxiety disorder, unspecified; E61.1 Iron deficiency; Z66 Do not resuscitate; D50.9 Iron deficiency anemia, unspecified; K59.00 Constipation, unspecified; Z96.652 Presence of left artificial knee joint; Z96.659 Presence of unspecified artificial knee joint; M19.90 Unspecified osteoarthritis, unspecified site; W19.XXXA Unspecified fall, initial encounter; Z87.11 Personal history of peptic ulcer disease; Z85.038 Personal history of other malignant neoplasm of large intestine; Z79.82 Long term (current) use of aspirin; Z95.0 Presence of cardiac pacemaker; Z91.81 History of falling; Z79.899 Other long term (current) drug therapy; Z88.1 Allergy status to other antibiotic agents; Z88.8 Allergy status to other drugs, medicaments and biological substances; Z88.6 Allergy status to analgesic agent; Z88.5 Allergy status to narcotic agent; Y92.007 Garden or yard of unspecified non-institutional (private) residence as the place of occurrence of the external cause; Z90.710 Acquired absence of both cervix and uterus; Z90.49 Acquired absence of other specified parts of digestive tract; Z98.49 Cataract extraction status, unspecified eye
CPT/HCPCS: 36415; 71045; 73502; 80053; 85025; 85610; 86850; 86900; 86901; 99285; A9270; 01230; 73501-26-LT; 73501-LT; 80048; 83735; 85027; 87641; 93005; 97110-GO; 97110-GP; 97116-GP; 97162-GP; 97165-GO; 97530-GP; 97535-GO; 99222; 99231; 99232; 99239; 99284; C1776; J0171; J0690; J0697; J1885; J2250; J2270; J2370; J2405; J2704; J3010; J3370; J3475; J3490; J7030; J7120; U0002

== ENCOUNTER 2020-02-08 04:15 | Emergency (ER) | payer MEDICARE, BC ==
[2020-02-08 04:31] VITALS: BP 142/92; PULSE 78
[2020-02-08] MEDS ORDERED: Sodium Chloride 0.9% 10 ML Syringe FLUSH PRN (04:47)
--- NOTE | 2020-02-08 04:48 | EDM.PDOC ---
ED HPI GENERAL MEDICAL PROBLEM - General Chief Complaint: Abdominal Pain Stated Complaint: BLOOD IN URINE Time Seen by Provider: 02/08/20 04:29 Source of Information: Reports: Patient, RN Notes Reviewed - History of Present Illness INITIAL COMMENTS - FREE TEXT/NARRATIVE: 84 yr old lady comes in with nausea, abd pain. She has had this for 7 to 10 days but worse this morning. She has also had hematuria which she has had before. Decreased appetite. No fever or chills. States she was started on eliquis and "has not been feeling well since that time". No chest pain, cough or difficulty breathing. Hx Htn, chronic a fib. Abdomen Pain Score (Numeric/FACES): 5 - Related Data Allergies Allergy/AdvReac Type Severity Reaction Status Date / Time ampicillin Allergy Cannot Verified 02/08/20 04:27 Remember clarithromycin [From Biaxin] Allergy Cannot Verified 02/08/20 04:27 Remember clavulanic acid Allergy Rash Verified 02/08/20 04:27 [From Augmentin] glucosamine Allergy Anaphylactic Verified 02/08/20 04:27 Shock hydrocodone Allergy Cannot Verified 02/08/20 04:27 Remember olmesartan [From Benicar] Allergy Cannot Verified 02/08/20 04:27 Remember propoxyphene HCl Allergy Cannot Verified 02/08/20 04:27 [From Darvon] Remember amoxicillin [Amoxicillin] AdvReac Other Verified 02/08/20 04:27 aspirin AdvReac Cannot Verified 02/08/20 04:27 Remember ciprofloxacin AdvReac Dizziness Verified 02/08/20 04:27 clindamycin AdvReac Cannot Verified 02/08/20 04:27 Remember ibuprofen AdvReac Other Verified 02/08/20 04:27 levofloxacin AdvReac Nausea and Verified 02/08/20 04:27 Vomiting metronidazole AdvReac Drowsiness Verified 02/08/20 04:27 olmesartan medoxomil AdvReac Other Verified 02/08/20 04:27 [From Benicar] Penicillins AdvReac Nausea and Verified 02/08/20 04:27 Vomiting sucralfate [From Carafate] AdvReac Other Verified 02/08/20 04:27 tramadol AdvReac Cannot Verified 02/08/20 04:27 Remember warfarin [Warfarin] AdvReac Other Verified 02/08/20 04:27 Home Meds: Home Meds Sodium Chloride [Rita-128] 1 drop EYEBOTH TID 04/09/14 [History] ALPRAZolam [Alprazolam] 0.25 mg PO BEDTIME PRN 08/30/16 [History] Carboxymethylcellulos/Glycerin [Refresh Optive Gel Eye Drops] 1 drop OP Q4HR PRN 02/12/19 [History] Furosemide [Lasix] 20 mg PO DAILY 02/12/19 [History] Lutein/Minerals/Vit A,C & E [Ocuvite] 1 tab PO DAILY 02/12/19 [History] Multivitamin [Multivitamins] 1 each PO DAILY 02/12/19 [History] Apixaban [Eliquis] 2.5 mg PO BID #60 tablet 09/28/19 [Rx] Losartan/Hydrochlorothiazide [Losartan-HCTZ 50-12.5 MG] 1 tab PO DAILY 02/08/20 [History] Metoprolol Succinate [Toprol XL] 25 mg PO DAILY 02/08/20 [History] Pantoprazole [ProTONIX] 40 mg PO DAILY 02/08/20 [History] Past Medical History HEENT History: Reports: Cataract Cardiovascular History: Reports: Afib, Angina, CAD, High Cholesterol, Hypertension Respiratory History: Reports: None Gastrointestinal History: Reports: GERD, PUD Genitourinary History: Reports: Other (See Below) Other Genitourinary History: Kidney tumor taken out 5 years ago - CT scan done every 5 years [employer] History: Reports: Other [employer] History: Hysterectomy, 2 vaginal births Musculoskeletal History: Reports: Arthritis Psychiatric History: Reports: Anxiety Hematologic History: Reports: Anemia, Iron Deficiency Oncologic (Cancer) History: Reports: Colon, Other (See Below) Other Oncologic History: colon cancer removed january 20 2019 - Infectious Disease History Infectious Disease History: Reports: Chicken Pox - Past Surgical History HEENT Surgical History: Reports: Cataract Surgery Cardiovascular Surgical History: Reports: None GI Surgical History: Reports: Appendectomy, Cholecystectomy, Colonoscopy, Other (See Below) (colon resection) Musculoskeletal Surgical History: Reports: Knee Replacement Oncologic Surgical History: Reports: Biopsy of Breast - History Comment History Comment: takes baby asa at home Social & Family History - Family History Family Medical History: Noncontributory - Caffeine Use Caffeine Use: Reports: Coffee - Living Situation & Occupation Living situation: Reports: , Alone Occupation: Retired ED ROS GENERAL - Review of Systems Review Of Systems: See Below Constitutional: Denies: Fever, Chills, Diaphoresis HEENT: Reports: No Symptoms Respiratory: Denies: Shortness of Breath, Pleuritic Chest Pain, Cough Cardiovascular: Denies: Chest Pain GI/Abdominal: Reports: Abdominal Pain, Constipation, Nausea. Denies: Diarrhea, Decreased Appetite, Vomiting Musculoskeletal: Denies: Arm Pain, Leg Pain Skin: Denies: Rash Neurological: Reports: Dizziness, Weakness. Denies: Trouble Speaking ED EXAM, GI/ABD - Physical Exam Exam: See Below General Appearance: Alert, No Apparent Distress Head: Atraumatic. No: Facial Swelling Neck: Supple Respiratory/Chest: No Respiratory Distress, Lungs Clear, Normal Breath Sounds Cardiovascular: Irregularly Irregular GI/Abdominal Exam: Soft, Tender (mild upper mid abd tenderness) Back Exam: No: CVA Tenderness (L), CVA Tenderness (R) Extremities: Normal Inspection. No: Pedal Edema, Leg Pain, Increased Warmth, Redness Neurological: Alert, Oriented, No Motor/Sensory Deficits Skin Exam: Warm, Dry, Normal Color EKG INTERPRETATION EKG Date: 02/08/20 Rhythm: A-Fib Rate (Beats/Min): 62 [place]: Normal P-Wave: Absent QRS: Wide ST-T: Other (T wave inversions ant. leads) Course - Vital Signs Last Recorded V/S: Last Vital Signs Temp 98.1 F 02/08/20 04:27 Pulse 78 02/08/20 04:27 Resp 16 02/08/20 04:27 BP 142/92 H 02/08/20 04:27 Pulse Ox 99 02/08/20 04:27 - Orders/Labs/Meds Orders: Active Orders 24 hr Category Date Time Status Peripheral IV Insertion Adult [OM.PC] Stat Oth 02/08/20 04:47 Ordered Labs: Laboratory Tests 02/08/20 02/08/20 02/08/20 Range/Units 05:11 05:11 05:11 WBC 5.78 (3.98-10.04) K/mm3 RBC 4.48 (3.98-5.22) M/mm3 Hgb 13.8 D (11.2-15.7) gm/dl Hct 40.2 (34.1-44.9) % MCV 89.7 (79.4-94.8) fl MCH 30.8 (25.6-32.2) pg MCHC 34.3 (32.2-35.5) g/dl RDW Std Deviation 47.2 H (36.4-46.3) fL Plt Count 150 L (182-369) K/mm3 MPV 10.4 (9.4-12.3) fl Neut % (Auto) 74.1 H (34.0-71.1) % Lymph % (Auto) 11.4 L (19.3-51.7) % [place] % (Auto) 12.8 H (4.7-12.5) % Eos % (Auto) 1.2 (0.7-5.8) Baso % (Auto) 0.3 (0.1-1.2) % Neut # (Auto) 4.28 (1.56-6.13) K/mm3 Lymph # (Auto) 0.66 L (1.18-3.74) K/mm3 [place] # (Auto) 0.74 H (0.24-0.36) K/mm3 Eos # (Auto) 0.07 (0.04-0.36) K/mm3 Baso # (Auto) 0.02 (0.01-0.08) K/mm3 Sodium 131 L (136-145) mEq/L Potassium 3.6 (3.5-5.1) mEq/L Chloride 96 L (98-107) mEq/L Carbon Dioxide 28 (21-32) mEq/L Anion Gap 10.6 (5-15) BUN 13 (7-18) mg/dL Creatinine 0.9 (0.55-1.02) mg/dL Est Cr Clr Drug Dosing TNP Estimated GFR (MDRD) 60 (>60) mL/min BUN/Creatinine Ratio 14.4 (14-18) Glucose 106 (83-115) mg/dL Calcium 9.4 (8.5-10.1) mg/dL Total Bilirubin 3.1 H (0.2-1.0) mg/dL AST 67 H (15-37) U/L ALT 30 (14-59) U/L Alkaline Phosphatase 402 H (46-116) U/L C-Reactive Protein 5.3 H* (<1.0) mg/dL Total Protein 7.7 (6.4-8.2) g/dl Albumin 3.4 (3.4-5.0) g/dl Globulin 4.3 gm/dL Albumin/Globulin Ratio 0.8 L (1-2) Lipase (73-393) U/L Urine Color (Yellow) Urine Appearance (Clear) Urine pH (5.0-8.0) Ur Specific [place] (1.005-1.030) Urine Protein (Negative) Urine Glucose (UA) (Negative) Urine Ketones (Negative) Urine Occult Blood (Negative) Urine Nitrite (Negative) Urine Bilirubin (Negative) Urine Urobilinogen (0.2-1.0) Ur Leukocyte Esterase (Negative) Urine RBC (0-5) /hpf Urine WBC (0-5) /hpf Ur Squamous Epith Cells (0-5) /hpf Urine Bacteria (FEW) /hpf Urine Mucus (FEW) /hpf 02/08/20 02/08/20 Range/Units 05:11 05:26 WBC (3.98-10.04) K/mm3 RBC (3.98-5.22) M/mm3 Hgb (11.2-15.7) gm/dl Hct (34.1-44.9) % MCV (79.4-94.8) fl MCH (25.6-32.2) pg MCHC (32.2-35.5) g/dl RDW Std Deviation (36.4-46.3) fL Plt Count (182-369) K/mm3 MPV (9.4-12.3) fl Neut % (Auto) (34.0-71.1) % Lymph % (Auto) (19.3-51.7) % [place] % (Auto) (4.7-12.5) % Eos % (Auto) (0.7-5.8) Baso % (Auto) (0.1-1.2) % Neut # (Auto) (1.56-6.13) K/mm3 Lymph # (Auto) (1.18-3.74) K/mm3 [place] # (Auto) (0.24-0.36) K/mm3 Eos # (Auto) (0.04-0.36) K/mm3 Baso # (Auto) (0.01-0.08) K/mm3 Sodium (136-145) mEq/L Potassium (3.5-5.1) mEq/L Chloride (98-107) mEq/L Carbon Dioxide (21-32) mEq/L Anion Gap (5-15) BUN (7-18) mg/dL Creatinine (0.55-1.02) mg/dL Est Cr Clr Drug Dosing Estimated GFR (MDRD) (>60) mL/min BUN/Creatinine Ratio (14-18) Glucose (83-115) mg/dL Calcium (8.5-10.1) mg/dL Total Bilirubin (0.2-1.0) mg/dL AST (15-37) U/L ALT (14-59) U/L Alkaline Phosphatase (46-116) U/L C-Reactive Protein (<1.0) mg/dL Total Protein (6.4-8.2) g/dl Albumin (3.4-5.0) g/dl Globulin gm/dL Albumin/Globulin Ratio (1-2) Lipase 104 (73-393) U/L Urine Color Yellow (Yellow) Urine Appearance Clear (Clear) Urine pH 7.0 (5.0-8.0) Ur Specific [place] 1.015 (1.005-1.030) Urine Protein Negative (Negative) Urine Glucose (UA) Negative (Negative) Urine Ketones Negative (Negative) Urine Occult Blood Trace-intact H (Negative) Urine Nitrite Negative (Negative) Urine Bilirubin Negative (Negative) Urine Urobilinogen 1.0 (0.2-1.0) Ur Leukocyte Esterase Negative (Negative) Urine RBC 5-10 H (0-5) /hpf Urine WBC 0-5 (0-5) /hpf Ur Squamous Epith Cells 0-5 (0-5) /hpf Urine Bacteria Few (FEW) /hpf Urine Mucus Few (FEW) /hpf Meds: Medications Discontinued Medications Generic Name Dose Route Start Last Admin Trade Name Freq PRN Reason Stop Dose Admin Magnesium Hydroxide 30 ml 02/08/20 06:46 Milk Of Magnesia PO 02/08/20 06:47 ONETIME ONE Ondansetron HCl 4 mg 02/08/20 04:56 02/08/20 05:07 Zofran IVPUSH 02/08/20 04:57 4 mg ONETIME ONE Administration Sodium Chloride 10 ml 02/08/20 04:47 02/08/20 05:07 Saline Flush FLUSH 10 ml ASDIRECTED PRN Administration Keep Vein Open - Re-Assessments/Exams Free Text/Narrative Re-Assessment/Exam: 02/08/20 19:20 UA did not show infection, mild microscopic hematuria. Labs were good. Flat and upright abd does show mildly increased stool and gas. Will give a dose of MOM. She has a lot of anxiety, a lot of questions about her meds. Thinks the eliquis is maker her sick, causing abd pain. I reminded her that she is on it for stroke prevention and discussed with her that the eliquis should not be causing abd pain. I suspect she has chronic gastritis. Reviewed her CT report from yesterday and there are pul nodules and abnl liver findings. She is scheduled for MRI in 2 days. She has an appt. with Dr Franz next week. Discharge instr. as documented. Departure - Departure Time of Disposition: 06:47 Disposition: Home, Self-Care 01 Condition: Fair Clinical Impression: Abdominal pain Qualifiers: Abdominal location: upper abdomen, unspecified Qualified Code(s): R10.10 - Upper abdominal pain, unspecified - Discharge Information Instructions: Abdominal Pain, Adult, [id number] Referrals: Maggie Solis MD [Primary Care Provider] - Forms: ED Department Discharge Additional Instructions: Continue with bland diet, best to eat small amounts of food frequently. Drink plenty of water to maintain hydration. Continue your current medications. Here in the Emergency Department it is not appropriate for us to adjust or change your medications. See Dr Solis Friday or early next week for Abd CT and MRI results. See Dr Franz next week as planned. You may take tums 2 or 3 times daily in addition to your regular meds if needed for abd pain. You should also consider taking a stool softner once daily and that will help you have less abdominal pain. Sepsis Event Note (ED) - Evaluation Sepsis Screening Result: No Definite Risk - My Orders Last 24 Hours: My Active Orders 02/08/20 04:47 Peripheral IV Insertion Adult [OM.PC] Stat - Assessment/Plan Last 24 Hours: My Active Orders 02/08/20 04:47 Peripheral IV Insertion Adult [OM.PC] Stat
[2020-02-08] MEDS ORDERED: Ondansetron 4 MG/2 ML SDV IVPUSH ONE (04:56)
[2020-02-08] MEDS ORDERED: Magnesium Hydroxide 400 MG/5 ML Susp 30 ML Cup PO ONE (06:46)
--- NOTE | 2020-02-08 08:07 | CR ---
Abdomen: Supine and upright views of the abdomen were obtained. Comparison: No previous study. Degenerative change with mild scoliosis is noted within the spine. Left hip prosthesis is noted. Bony structures are osteopenic. Bowel gas pattern appears within normal limits. No free air is identified. Mild vascular calcification is seen. Impression: 1. Nothing acute is seen on 2 view abdominal x-ray. Diagnostic code #2 This report was dictated in MDT
== END 2020-02-08 07:00 | disposition home or self-care (01) ==
LOC: JD.ED 04:15
DX: R10.10 Upper abdominal pain, unspecified (principal); I48.20 Chronic atrial fibrillation, unspecified; I25.10 Atherosclerotic heart disease of native coronary artery without angina pectoris; I10 Essential (primary) hypertension; K21.9 Gastro-esophageal reflux disease without esophagitis; Z90.49 Acquired absence of other specified parts of digestive tract; Z90.710 Acquired absence of both cervix and uterus; Z88.1 Allergy status to other antibiotic agents; Z88.8 Allergy status to other drugs, medicaments and biological substances; Z88.5 Allergy status to narcotic agent; Z88.6 Allergy status to analgesic agent; Z88.0 Allergy status to penicillin; Z79.899 Other long term (current) drug therapy; Z79.01 Long term (current) use of anticoagulants
CPT/HCPCS: 36415; 74019; 80053; 81001; 83690; 85025; 86140; 93005; 96374; 99284; J2405; 93010; 99283

== ENCOUNTER 2020-03-07 11:54 | Emergency (ER) | payer MEDICARE, BC ==
[2020-03-07] MEDS ORDERED: Sodium Chloride 0.9% 1,000 ML IV ONE ×3 (12:21→17:01)
[2020-03-07] MEDS ORDERED: Sodium Chloride 0.9% 10 ML Syringe FLUSH PRN (12:21)
--- NOTE | 2020-03-07 12:33 | EDM.PDOC ---
ED HPI GENERAL MEDICAL PROBLEM - General Chief Complaint: General Stated Complaint: WEAK/UNABLE TO WALK/BLURRED VISION/DISCOLORATION Time Seen by Provider: 03/07/20 12:10 Source of Information: Reports: Patient, Old Records, RN Notes Reviewed History Limitations: Reports: No Limitations - History of Present Illness INITIAL COMMENTS - FREE TEXT/NARRATIVE: Patient is an 84-year-old female who presents to the ED for increasing weakness. Patient notes this has been a gradual onset, however she states that she has stomach, liver, breast cancer, that is end-stage. She states that she was told that she only has about 3 to 4 weeks to live. She notes this was told to her about 2 weeks ago. Her oncologist is Dr. Franz. Prior records from [place] states that she was taking chemo infusions, to help stop the spread of the cancer however it looks like it has spread quite diffusely. Patient states she has been in contact with some [facility] nursing homes to try to get him for care management, but is unable to do so due to the chemo infusions. Patient notes she is very fatigued, and she has generalized jaundice along with scleral icterus. Patient's other primary care provider is Dr. Solis. Patient states she is nauseous, but has not had any vomiting, no fevers chills, cough/shortness of breath. She is not had any black tarry stools. She is not complaining of any urinary symptoms at today's visit however she does state that her urine is quite orange due to her liver issues. Abdomen Pain Score (Numeric/FACES): 6 - Related Data Allergies Allergy/AdvReac Type Severity Reaction Status Date / Time ampicillin Allergy Cannot Verified 03/07/20 12:09 Remember clarithromycin [From Biaxin] Allergy Cannot Verified 03/07/20 12:09 Remember clavulanic acid Allergy Rash Verified 03/07/20 12:09 [From Augmentin] glucosamine Allergy Anaphylactic Verified 03/07/20 12:09 Shock hydrocodone Allergy Cannot Verified 03/07/20 12:09 Remember olmesartan [From Benicar] Allergy Cannot Verified 03/07/20 12:09 Remember propoxyphene HCl Allergy Cannot Verified 03/07/20 12:09 [From Darvon] Remember amoxicillin [Amoxicillin] AdvReac Other Verified 03/07/20 12:09 aspirin AdvReac Cannot Verified 03/07/20 12:09 Remember ciprofloxacin AdvReac Dizziness Verified 03/07/20 12:09 clindamycin AdvReac Cannot Verified 03/07/20 12:09 Remember ibuprofen AdvReac Other Verified 03/07/20 12:09 levofloxacin AdvReac Nausea and Verified 03/07/20 12:09 Vomiting metronidazole AdvReac Drowsiness Verified 03/07/20 12:09 olmesartan medoxomil AdvReac Other Verified 03/07/20 12:09 [From Benicar] Penicillins AdvReac Nausea and Verified 03/07/20 12:09 Vomiting sucralfate [From Carafate] AdvReac Other Verified 03/07/20 12:09 tramadol AdvReac Cannot Verified 03/07/20 12:09 Remember warfarin [Warfarin] AdvReac Other Verified 03/07/20 12:09 Home Meds: Home Meds Sodium Chloride [Rita-128] 1 drop EYEBOTH TID 04/09/14 [History] ALPRAZolam [Alprazolam] 0.25 mg PO BEDTIME PRN 08/30/16 [History] Carboxymethylcellulos/Glycerin [Refresh Optive Gel Eye Drops] 1 drop OP Q4HR PRN 02/12/19 [History] Furosemide [Lasix] 20 mg PO DAILY 02/12/19 [History] Multivitamin [Multivitamins] 1 each PO DAILY 02/12/19 [History] Apixaban [Eliquis] 2.5 mg PO BID #60 tablet 09/28/19 [Rx] Losartan/Hydrochlorothiazide [Losartan-HCTZ 50-12.5 MG] 1 tab PO DAILY 02/08/20 [History] Metoprolol Succinate [Toprol XL] 25 mg PO DAILY 02/08/20 [History] Past Medical History HEENT History: Reports: Cataract Cardiovascular History: Reports: Afib, Angina, CAD, High Cholesterol, Hypertension Gastrointestinal History: Reports: GERD, Jaundice, PUD Genitourinary History: Reports: Other (See Below) Other Genitourinary History: Kidney tumor taken out 5 years ago - CT scan done every 5 years SUSTAINABILITY MANAGER History: Reports: Other SUSTAINABILITY MANAGER History: Hysterectomy, 2 vaginal births Musculoskeletal History: Reports: Arthritis Psychiatric History: Reports: Anxiety Hematologic History: Reports: Anemia, Iron Deficiency Oncologic (Cancer) History: Reports: Breast, Colon, Liver, Other (See Below) Other Oncologic History: stomach - Infectious Disease History Infectious Disease History: Reports: Chicken Pox - Past Surgical History HEENT Surgical History: Reports: Cataract Surgery GI Surgical History: Reports: Appendectomy, Cholecystectomy, Colonoscopy Musculoskeletal Surgical History: Reports: Knee Replacement Oncologic Surgical History: Reports: Biopsy of Breast - History Comment History Comment: takes baby asa at home Social & Family History - Family History Family Medical History: Noncontributory - Tobacco Use Smoking Status *Q: Never Smoker Second Hand Smoke Exposure: No - Caffeine Use Caffeine Use: Reports: None - Recreational Drug Use Recreational Drug Use: No - Living Situation & Occupation Living situation: Reports: , Alone Occupation: Retired ED ROS GENERAL - Review of Systems Review Of Systems: Comprehensive ROS is negative, except as noted in HPI. ED EXAM, GENERAL - Physical Exam Exam: See Below Exam Limited By: No Limitations General Appearance: Alert, No Apparent Distress, Cachetic (patient has a generalized jaundiced appearanc with scleral icterus appreciated.) Eye Exam: Bilateral Eye: EOMI, PERRL, Other (scleral icterus) Throat/Mouth: Normal Inspection, Normal Lips, Normal Teeth, Normal Gums, Normal Oropharynx, Normal Voice, No Airway Compromise Head: Atraumatic, Normocephalic Neck: Normal Inspection Respiratory/Chest: No Respiratory Distress, Lungs Clear, Normal Breath Sounds, No Accessory Muscle Use, Chest Non-Tender Cardiovascular: Normal Peripheral Pulses, Regular Rate, Rhythm, No Edema, No Murmur Peripheral Pulses: 2+: Radial (L), Radial (R) GI/Abdominal: Normal Bowel Sounds, Soft, No Distention, No Mass, Tender (mainly over epigastrium and RUQ) Extremities: Normal Inspection Neurological: Alert, Oriented, Normal Cognition, No Motor/Sensory Deficits Psychiatric: Normal Affect, Normal Mood Skin Exam: Warm, Dry, Intact, No Rash, Jaundice (generalized) Course - Vital Signs Last Recorded V/S: Last Vital Signs Temp 97.2 F 03/07/20 12:06 Pulse 62 03/07/20 17:15 Resp 18 03/07/20 12:06 BP 100/54 L 03/07/20 17:15 Pulse Ox 100 03/07/20 17:15 - Orders/Labs/Meds Orders: Active Orders 24 hr Category Date Time Status Urinary Catheter Insertion [Insert Urinary Catheter] [ Care 03/07/20 15:00 Ordered OM.PC] ONETIME CULTURE BLOOD [BC] Stat Lab 03/07/20 12:55 Received CULTURE BLOOD [BC] Stat Lab 03/07/20 13:00 Received Sodium Chloride 0.9% [Normal Saline] 1,000 ml Med 03/07/20 17:01 Active IV ONETIME Sodium Chloride 0.9% [Saline Flush] Med 03/07/20 12:21 Active 10 ml FLUSH ASDIRECTED PRN Blood Culture x2 Reflex Set [OM.PC] Stat Oth 03/07/20 12:21 Ordered Saline Lock Insert [OM.PC] Stat Oth 03/07/20 12:21 Ordered Medication Orders Sodium Chloride (Normal Saline) 1,000 mls @ 100 mls/hr IV ONETIME ONE Stop: 03/08/20 03:00 Last Admin: 03/07/20 17:09 Dose: 100 mls/hr Documented by: THUY Sodium Chloride (Saline Flush) 10 ml FLUSH ASDIRECTED PRN PRN Reason: Keep Vein Open Last Admin: 03/07/20 12:54 Dose: 10 ml Documented by: GISELE Labs: Laboratory Tests 03/07/20 03/07/20 03/07/20 Range/Units 12:13 12:13 12:13 WBC 9.29 (3.98-10.04) K/mm3 RBC 4.50 (3.98-5.22) M/mm3 Hgb 14.4 (11.2-15.7) gm/dl Hct 39.4 (34.1-44.9) % MCV 87.6 (79.4-94.8) fl MCH 32.0 (25.6-32.2) pg MCHC 36.5 H (32.2-35.5) g/dl RDW Std Deviation 55.0 H (36.4-46.3) fL Plt Count 275 D (182-369) K/mm3 MPV 10.7 (9.4-12.3) fl Neutrophils % (Manual) 82 H (40-60) % Band Neutrophils % 0 (0-10) % Lymphocytes % (Manual) 15 L (20-40) % Atypical Lymphs % 0 % Monocytes % (Manual) 2 (2-10) % Eosinophils % (Manual) 1 (0.7-5.8) % Basophils % (Manual) 0 L (0.1-1.2) Platelet Estimate Adequate RBC Morph Comment Normal PT 15.7 H (9.7-11.7) SECONDS INR 1.48 Sodium 126 L (136-145) mEq/L Potassium 2.7 L (3.5-5.1) mEq/L Chloride 86 L (98-107) mEq/L Carbon Dioxide 27 (21-32) mEq/L Anion Gap 15.7 H (5-15) BUN 33 H (7-18) mg/dL Creatinine 1.9 H (0.55-1.02) mg/dL Est Cr Clr Drug Dosing 23.25 mL/min Estimated GFR (MDRD) 25 (>60) mL/min BUN/Creatinine Ratio 17.4 (14-18) Glucose 98 (83-115) mg/dL Lactic Acid (0.4-2.0) mmol/L Calcium 9.9 (8.5-10.1) mg/dL Total Bilirubin 22.9 H (0.2-1.0) mg/dL AST 312 H (15-37) U/L ALT 156 H (14-59) U/L Alkaline Phosphatase 586 H (46-116) U/L Troponin I 0.019 (0.00-0.056) ng/mL C-Reactive Protein 7.8 H* (<1.0) mg/dL Total Protein 7.3 (6.4-8.2) g/dl Albumin 2.8 L (3.4-5.0) g/dl Globulin 4.5 gm/dL Albumin/Globulin Ratio 0.6 L (1-2) Urine Color (Yellow) Urine Appearance (Clear) Urine pH (5.0-8.0) Ur Specific [place] (1.005-1.030) Urine Protein (Negative) Urine Glucose (UA) (Negative) Urine Ketones (Negative) Urine Occult Blood (Negative) Urine Nitrite (Negative) Urine Bilirubin (Negative) Urine Urobilinogen (0.2-1.0) Ur Leukocyte Esterase (Negative) Urine RBC (0-5) /hpf Urine WBC (0-5) /hpf Ur Squamous Epith Cells (0-5) /hpf Ur Transition Epith Cell (0-5) Urine Bacteria (FEW) /hpf Urine Mucus (FEW) /hpf SARS-CoV-2 RNA (LUIS ENRIQUE) (NEGATIVE) 03/07/20 03/07/20 03/07/20 Range/Units 13:00 13:03 14:52 WBC (3.98-10.04) K/mm3 RBC (3.98-5.22) M/mm3 Hgb (11.2-15.7) gm/dl Hct (34.1-44.9) % MCV (79.4-94.8) fl MCH (25.6-32.2) pg MCHC (32.2-35.5) g/dl RDW Std Deviation (36.4-46.3) fL Plt Count (182-369) K/mm3 MPV (9.4-12.3) fl Neutrophils % (Manual) (40-60) % Band Neutrophils % (0-10) % Lymphocytes % (Manual) (20-40) % Atypical Lymphs % % Monocytes % (Manual) (2-10) % Eosinophils % (Manual) (0.7-5.8) % Basophils % (Manual) (0.1-1.2) Platelet Estimate RBC Morph Comment PT (9.7-11.7) SECONDS INR Sodium (136-145) mEq/L Potassium (3.5-5.1) mEq/L Chloride (98-107) mEq/L Carbon Dioxide (21-32) mEq/L Anion Gap (5-15) BUN (7-18) mg/dL Creatinine (0.55-1.02) mg/dL Est Cr Clr Drug Dosing mL/min Estimated GFR (MDRD) (>60) mL/min BUN/Creatinine Ratio (14-18) Glucose (83-115) mg/dL Lactic Acid 1.9 (0.4-2.0) mmol/L Calcium (8.5-10.1) mg/dL Total Bilirubin (0.2-1.0) mg/dL AST (15-37) U/L ALT (14-59) U/L Alkaline Phosphatase (46-116) U/L Troponin I (0.00-0.056) ng/mL C-Reactive Protein (<1.0) mg/dL Total Protein (6.4-8.2) g/dl Albumin (3.4-5.0) g/dl Globulin gm/dL Albumin/Globulin Ratio (1-2) Urine Color Dark yellow (Yellow) Urine Appearance Clear (Clear) Urine pH 7.0 (5.0-8.0) Ur Specific [place] 1.015 (1.005-1.030) Urine Protein 2+ H (Negative) Urine Glucose (UA) Trace H (Negative) Urine Ketones Trace H (Negative) Urine Occult Blood Negative (Negative) Urine Nitrite Negative (Negative) Urine Bilirubin 3+ H (Negative) Urine Urobilinogen 4.0 H (0.2-1.0) Ur Leukocyte Esterase Negative (Negative) Urine RBC 0-5 (0-5) /hpf Urine WBC 5-10 H (0-5) /hpf Ur Squamous Epith Cells 0-5 (0-5) /hpf Ur Transition Epith Cell 0-5 (0-5) Urine Bacteria Moderate H (FEW) /hpf Urine Mucus Few (FEW) /hpf SARS-CoV-2 RNA (LUIS ENRIQUE) Negative (NEGATIVE) Meds: Medications Generic Name Dose Route Start Last Admin Trade Name Wesley PRN Reason Stop Dose Admin Sodium Chloride 1,000 mls @ 100 mls/hr 03/07/20 17:01 03/07/20 17:09 Normal Saline IV 03/08/20 03:00 100 mls/hr ONETIME ONE Administration Sodium Chloride 10 ml 03/07/20 12:21 03/07/20 12:54 Saline Flush FLUSH 10 ml ASDIRECTED PRN Administration Keep Vein Open Discontinued Medications Generic Name Dose Route Start Last Admin Trade Name Wesley PRN Reason Stop Dose Admin Sodium Chloride 1,000 mls @ 999 mls/hr 03/07/20 12:21 03/07/20 12:52 Normal Saline IV 03/07/20 13:21 999 mls/hr BOLUS ONE Administration Protocol Sodium Chloride 1,000 mls @ 999 mls/hr 03/07/20 13:14 03/07/20 14:25 Normal Saline IV 03/07/20 14:14 999 mls/hr ONETIME ONE Administration Ondansetron HCl 4 mg 03/07/20 12:38 03/07/20 12:54 Zofran IVPUSH 03/07/20 12:39 4 mg ONETIME ONE Administration Potassium Chloride 40 meq 03/07/20 13:15 03/07/20 15:35 Klor-Con M20 PO 03/07/20 16:16 Not Given Q1H LSIA - Re-Assessments/Exams Free Text/Narrative Re-Assessment/Exam: 03/07/20 12:36 Patient presents to the ED for increased weakness and fatigue secondary to metastatic end-stage cancer. We are attempting to get records from [place], it does appear that the patient is taking chemo infusions, and this is what is causing her to have issues try to get into the prison. Her appearance today does appear very cachectic and weak, I do not believe she would thrive well at home. Labs to be obtained to rule out the presence of infection. Patient will likely have to make some decisions on whether to continue chemo or discontinue chemo in order to be able to be placed in a prison. 03/07/20 13:18 I did talk with Adrienne, our social media sr strategy manager, and she did make me aware that most [facility] nursing homes are quite full. And that [facility] only has one male bed available for possible admissions. Nonetheless patient's lab work has started to result, CBC is unremarkable, metabolic panel is impressive for a sodium low at 126, potassium low at 2.7,her BUN elevated at 33, creatinine up at 1.9, GFR low at 25. Total bili markedly elevated at 22.9, AST 312, ALT 156, ALP 586, and CRP elevated at 7.8. Patient will be given potassium along with another bag of normal saline for management of the metabolic abnormalities. 03/07/20 14:30 We did get 121 pages of records from [place] via fax. I did review most of these, pertinent information includes a history of renal cancer, years ago, breast cancer, recent colon cancer of her ascending colon, with a laparoscopic right hemicolectomy for the cecal tumor done in December 2018. This tumor difficult to differentiate between neuroendocrine versus adenocarcinoma. She had a recent abdomen CT done on February 15, [address] Franz, and showed enlarging pulmonary nodules, and focal area in her liver suspicious for tumor. She was scheduled for a PET scan and liver biopsy after this CT, and biopsy was positive for tumor in her liver. PET scan also had focal areas in her lungs, liver, and near her renal artery/kidney. From medical report from Dr. Franz on 03/01, patient is a DNR, and he was going to put in a full hospice referral for her for management as he did not think she would do well on any sort of further cancer treatment. 03/07/20 16:03 I have been in contact with [facility] in [place]; they may have a bed for this patient. I do believe that she would be best served in the [place] area for further management. They may be able to place her in NH in that area quicker than we could. Adrienne, our social media sr strategy manager said that most of all of our nursing homes are full or very limited on bed placement; with many pending admissions or re-admissions to area nursing homes. 03/07/20 16:53 I was able to talk with Dwaine again, Dr. Pitt does accept for hospice management. Patient be transferred by ambulance service to [facility] [place] in [place] for end of life cares. 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 Failure to thrive Qualifiers: Failure to thrive age range: in adult Qualified Code(s): R62.7 - Adult failure to thrive - Discharge Information Referrals: Maggie Solis MD [Primary Care Provider] - Forms: ED Department Discharge Sepsis Event Note (ED) - Evaluation Sepsis Screening Result: No Definite Risk - Focused Exam Vital Signs: Vital Signs Temp Pulse Resp BP Pulse Ox Pulse Ox 03/07/20 17:15 62 100/54 L 100 03/07/20 16:03 84 L 03/07/20 15:35 90/47 L 03/07/20 14:39 109/58 L 03/07/20 13:45 90/52 L 03/07/20 12:21 76/50 L 03/07/20 12:06 97.2 F 65 18 77/52 L 98 - My Orders Last 24 Hours: My Active Orders 03/07/20 12:21 Sodium Chloride 0.9% [Saline Flush] 10 ml FLUSH ASDIRECTED PRN Blood Culture x2 Reflex Set [OM.PC] Stat Saline Lock Insert [OM.PC] Stat 03/07/20 12:55 CULTURE BLOOD [BC] Stat 03/07/20 13:00 CULTURE BLOOD [BC] Stat 03/07/20 15:00 Urinary Catheter Insertion [Insert Urinary Catheter] [OM.PC] ONETIME 03/07/20 17:01 Sodium Chloride 0.9% [Normal Saline] 1,000 ml IV ONETIME - Assessment/Plan Last 24 Hours: My Active Orders 03/07/20 12:21 Sodium Chloride 0.9% [Saline Flush] 10 ml FLUSH ASDIRECTED PRN Blood Culture x2 Reflex Set [OM.PC] Stat Saline Lock Insert [OM.PC] Stat 03/07/20 12:55 CULTURE BLOOD [BC] Stat 03/07/20 13:00 CULTURE BLOOD [BC] Stat 03/07/20 15:00 Urinary Catheter Insertion [Insert Urinary Catheter] [OM.PC] ONETIME 03/07/20 17:01 Sodium Chloride 0.9% [Normal Saline] 1,000 ml IV ONETIME
[2020-03-07] MEDS ORDERED: Ondansetron 4 MG/2 ML SDV IVPUSH ONE (12:38)
--- NOTE | 2020-03-07 12:59 | CR ---
Chest: 2 views of the chest were obtained. Comparison: Prior chest x-ray of 09/22/19. Heart size and mediastinum are within normal limits. Lungs are clear with no acute parenchymal change. Pacemaker is noted. Surgical clips are seen within the right axillary region. Scoliosis is present within the spine with scattered degenerative disc space narrowing and endplate spurring. Impression: 1. Findings as described above. 2. Nothing acute is appreciated. Diagnostic code #2 This report was dictated in MDT
[2020-03-07] MEDS: Potassium Chloride 20 MEQ Tab.ER PO SCH ×2 (14:26→15:35)
[2020-03-07 17:19] VITALS: BP 100/54; PULSE 62
== END 2020-03-07 18:00 ==
LOC: JD.ED 11:54
DX: C79.70 Secondary malignant neoplasm of unspecified adrenal gland (principal); R62.7 Adult failure to thrive; Z51.5 Encounter for palliative care; I10 Essential (primary) hypertension; I25.10 Atherosclerotic heart disease of native coronary artery without angina pectoris; I48.91 Unspecified atrial fibrillation; F41.9 Anxiety disorder, unspecified; Z88.1 Allergy status to other antibiotic agents; Z88.8 Allergy status to other drugs, medicaments and biological substances; Z88.5 Allergy status to narcotic agent; Z88.6 Allergy status to analgesic agent; Z88.0 Allergy status to penicillin; Z79.899 Other long term (current) drug therapy; Z79.01 Long term (current) use of anticoagulants; Z90.710 Acquired absence of both cervix and uterus; Z90.49 Acquired absence of other specified parts of digestive tract; Z20.828 Contact with and (suspected) exposure to other viral communicable diseases; Z85.3 Personal history of malignant neoplasm of breast; Z85.05 Personal history of malignant neoplasm of liver; Z85.038 Personal history of other malignant neoplasm of large intestine
CPT/HCPCS: 36415; 71046; 80053; 81001; 83605; 84484; 85007; 85027; 85610; 86140; 87040; 96361; 96374; 99285; A9270; J2405; J7030; U0002